=== PATIENT | male | born 1975 | race Caucasian/White ===

== ENCOUNTER 2018-01-02 06:36 | Emergency (ER) | payer BC, OTHER ==
[~2018-01-02] VITALS: Ht 185.4 cm; Wt 190.0 kg
[~2018-01-02 06:36] MED LIST: TRAM-10 PO
[2018-01-02 06:39] VITALS: Ht 185.4 cm; Wt 190.0 kg
--- NOTE | 2018-01-02 07:06 | DIAGNOSTIC IMAGING REPORT ---
L KNEE 1 OR 2 VIEWS ROUTINE CLINICAL HISTORY: left knee pain pain. Trauma. COMPARISON: None. DISCUSSION: The bones and joint spaces appear intact. There is no evidence of fracture, dislocation or bony disease. There is no evidence for soft tissue swelling. Mild degenerative changes of the patellofemoral joint compartment. No significant joint effusion. IMPRESSION: No acute process. The above report was generated using voice recognition software. It may contain grammatical, syntax or spelling errors. Electronically signed by: Jose Riojas M.D. 01/02/2018 7:04 AM Dictated Date/Time: 01/02/2018 7:04 AM
--- NOTE | 2018-01-02 07:16 | EMERGENCY ROOM VISIT NOTE ---
ED Visit Note First contact with patient: 06:43 CHIEF COMPLAINT: Left Knee injury HISTORY OF PRESENT ILLNESS: This 42-year-old male presents to the ER with chief complaint of left knee pain. The patient states that he has had pain in the left knee for the past week and a half. 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 The patient was wearing a knee brace when the injury occurred. Patient is able to bear weight. The patient denies any prior locking or giving out of the knee. The patient denies any prior knee surgery to this knee. He has had knee surgery to his right knee by Dr. Mcneil in the past. REVIEW OF SYSTEMS: 10 system review was performed and was negative unless stated otherwise history of present illness. PMH: The patient is healthy; right knee surgery SOCIAL HISTORY: Patient denies any tobacco use. He states he quit many years ago. The patient does admit to occasional alcohol use. PHYSICAL EXAM: Vital Signs: Were reviewed reviewed Nurse's notes. GENERAL: 42- year-old obese male appears in no acute distress. MENTAL STATUS: Alert, oriented, and cooperative. LEFT: KNEE: No gross bony deformity noted. No erythema or edema noted. The patient is tender to palpation over the posterior aspect of the lateral portion of the knee. The patient has full range of motion of the knee with most pain elicited with full flexion. No ligament instability noted. EMERGENCY DEPARTMENT COURSE: The patient was evaluated. The patient was offered pain medication but declined at this time. X-ray of the left knee was also interpreted by the radiologist and myself. DIAGNOSTICS:L KNEE 1 OR 2 VIEWS ROUTINE CLINICAL HISTORY: left knee pain pain. Trauma. COMPARISON: None. DISCUSSION: The bones and joint spaces appear intact. There is no evidence of fracture, dislocation or bony disease. There is no evidence for soft tissue swelling. Mild degenerative changes of the patellofemoral joint compartment. No significant joint effusion. IMPRESSION: No acute process. The above report was generated using voice recognition software. It may contain grammatical, syntax or spelling errors. Electronically signed by: Jose Riojas M.D. 01/02/2018 7:04 AM The patient was informed of the findings. The patient already has any brace and crutches at home. The patient was discharged home in stable condition. DIAGNOSIS: Left knee pain Elevated BP DISCHARGE INSTRUCTIONS: Follow up with PCP for blood pressure recheck. ibuprofen , 600 mg every 6 hours if needed for pain. Take [place] as needed for more severe pain. Do not drive while taking the [place]. Ice to and elevation to the knee frequently for the next 24 hours. Wear knee brace and use crutches for ambulation until evaluated by orthopedics. Call Dr. Mcneil today for follow-up appointment. Current/Historical Medications Scheduled PRN Hydrocodone/Acetaminophen 5MG/325MG ([place] 5MG/325MG), 1-2 TABLET PO Q6 PRN for Pain Allergies Coded Allergies: No Known Allergies (Unverified , 01/02/18) Vital Signs Date Time Temp Pulse Resp B/P (MAP) Pulse Ox O2 Delivery O2 Flow Rate FiO2 01/02/18 07:33 36.7 77 18 162/112 95 01/02/18 06:39 36.7 66 18 158/94 95 Room Air Departure Information Prescriptions Hydrocodone/Acetaminophen 5MG/325MG ([place] 5MG/325MG) Tab 1-2 TABLET PO Q6 Y for Pain, #20 TAB For Initial Treatment Prov: Daja Riojas PA-C 01/02/18 Referrals Elliott Vanegas M.D. (PCP) Patient Instructions [facility]
[2018-01-02] MEDS ORDERED: HYDR-5688 PO (07:18)
[2018-01-02 07:33] VITALS: BP 162/112; PULSE 77; TEMP 36.7; O2SAT 95
== END 2018-01-02 07:35 | disposition home or self-care (01) ==
LOC: C.EDB 06:37 → C.EDA 07:35
DX: M25.562 Pain in left knee (principal); R03.0 Elevated blood-pressure reading, without diagnosis of hypertension; Z87.891 Personal history of nicotine dependence; Z98.890 Other specified postprocedural states

== ENCOUNTER 2021-07-31 07:42 | Inpatient (IN) ==
[2021-07-31] MEDS ORDERED: BENZONATATE 100 MG CAPSULE PO ONE (08:20)
[2021-07-31] MEDS ORDERED: SODIUM CHLORIDE 0.9% 1000ML 1,000 ML IV ONE (08:20)
[2021-07-31] MEDS ORDERED: dexAMETHasone**PF** 10 MG/ML VIAL IV ONE (08:20)
[2021-07-31] MEDS ORDERED: ACETAMINOPHEN 1000 MG/100 ML IV IV STA (08:31)
--- NOTE | 2021-07-31 08:31 | Emergency Department Note ---
History of Present Illness General Chief complaint: Shortness of Breath/Dyspnea Time Seen by Provider: 07/31/21 07:46 History of Present Illness This 45-year-old male patient presents to the emergency department today for evaluation of monoclonal antibody administration. Patient states 1 week ago, he developed cough, shortness of breath, fever, and chills. He states he tested positive for COVID-19 on 07/27/2021. He was referred to the emergency for monoclonal antibody administration. Patient reports ongoing cough, congestion, sleeping "almost 24 hours a day", and fever. He states he is generally feeling unwell. He denies any numbness, tingling, chest pain. No dizziness, passing out, nausea, or vomiting. Home Medications Medication Instructions Recorded Confirmed Type naproxen sodium 220 mg capsule 440 mg PO Q12H PRN 08/03/18 07/31/21 History (Aleve) pseudoephedrine-ibuprofen 30 2 tab PO QID PRN 07/31/21 07/31/21 History mg-200 mg tablet Allergies Allergy/AdvReac Type Severity Reaction Status Date / Time No Known Allergies Allergy Verified 07/31/21 09:30 Past Med/Surg History Medical History Anxiety Depression Dyslipidemia GERD (gastroesophageal reflux disease) Left sided chest pain Morbid obesity with BMI of 50.0-59.9, adult Prediabetes Surgical History History of tonsillectomy Status post medial meniscus repair Family History Other Heart disease Social History Smoking Status: Never smoker Second Hand Exposure: No; Hx Alcohol Use: Yes Alcohol type: beer Hx Substance Use: No Preferred Language: Irish Communication Ability: Effective Sawyer [place] Slabs Required: No Beliefs That Will Affect Care: None Current Living Situation: Spouse Other Information That Helps Us Care for You: No Feels Safe at Home: Yes Safety Concerns: Feels Safe At This Time Assistive Devices: None Review of Systems A total of 10 systems reviewed and were otherwise negative Physical Exam Vital Signs Vital Signs - 24 hr 07/31/21 08:05 07/31/21 08:21 07/31/21 08:31 Temperature 39.6 C H Temperature Source Oral Pulse Rate 87 82 Pulse Rate from SpO2 Sensor 82 Pulse Rhythm Regular Pulse Strength Normal Respiratory Rate 17 23 Respiratory Effort / Characteristics Non-Labored Spontaneous Spontaneous Respiratory Depth Normal Respiratory Pattern Regular Blood Pressure 135/83 118/73 Blood Pressure Mean 100 88 Blood Pressure Position Lying Pulse Oximetry 83 L 93 Oxygen Delivery Method Room Air Nasal Cannula Oxygen Flow Rate 5 Sepsis Recent Fever Within 48 Hours No Sepsis New/Unexplained Change in Mental Status N/A Sepsis Action Taken by Nursing No Action Required Oxygen Flow Rate - Titration 07/31/21 08:41 07/31/21 08:42 07/31/21 08:58 Temperature Temperature Source Pulse Rate 85 Pulse Rate from SpO2 Sensor 85 Pulse Rhythm Pulse Strength Respiratory Rate 30 H Respiratory Effort / Characteristics Respiratory Depth Respiratory Pattern Blood Pressure 98/66 L Blood Pressure Mean 76 Blood Pressure Position Pulse Oximetry 83 L 92 93 Oxygen Delivery Method Room Air Nasal Cannula Nasal Cannula Oxygen Flow Rate 5 Sepsis Recent Fever Within 48 Hours Sepsis New/Unexplained Change in Mental Status Sepsis Action Taken by Nursing Oxygen Flow Rate - Titration 5 07/31/21 09:00 07/31/21 09:31 07/31/21 10:00 Temperature Temperature Source Pulse Rate 90 79 73 Pulse Rate from SpO2 Sensor 88 79 73 Pulse Rhythm Pulse Strength Respiratory Rate 27 H 25 H 27 H Respiratory Effort / Characteristics Respiratory Depth Respiratory Pattern Blood Pressure 97/63 L 119/71 112/60 Blood Pressure Mean 74 87 77 Blood Pressure Position Pulse Oximetry 94 91 93 Oxygen Delivery Method Nasal Cannula Nasal Cannula Nasal Cannula Oxygen Flow Rate 5 5 5 Sepsis Recent Fever Within 48 Hours Sepsis New/Unexplained Change in Mental Status Sepsis Action Taken by Nursing Oxygen Flow Rate - Titration 07/31/21 10:30 Temperature Temperature Source Pulse Rate 73 Pulse Rate from SpO2 Sensor 73 Pulse Rhythm Pulse Strength Respiratory Rate 24 Respiratory Effort / Characteristics Respiratory Depth Respiratory Pattern Blood Pressure 108/60 Blood Pressure Mean 76 Blood Pressure Position Pulse Oximetry 91 Oxygen Delivery Method Nasal Cannula Oxygen Flow Rate 2 Sepsis Recent Fever Within 48 Hours Sepsis New/Unexplained Change in Mental Status Sepsis Action Taken by Nursing Oxygen Flow Rate - Titration VITALS: Vitals are noted on the nurse's note and reviewed by myself. Patient is hypoxic with an O2 saturation of 83% on room air. He is febrile with a temperature of 39.6 C GENERAL: This is a 45-year-old obese white male, in no acute distress, nondiaphoretic, well-developed well-nourished. SKIN: The skin was without rashes, erythema, edema, or bruising. There is no tenting of the skin. Capillary refill less than 2 seconds. HEAD: Normocephalic atraumatic. EYES: Conjunctivae without injection, sclerae without icterus. NECK: Supple without nuchal rigidity. No lymphadenopathy. Cervical spine is nontender. No JVD. HEART: Regular rate and rhythm without murmurs gallops or rubs. LUNGS: Clear to auscultation bilaterally without wheezes, rales or rhonchi. No retractions or accessory muscle use. MUSCULOSKELETAL: No muscle atrophy, erythema, or edema noted. Full range of motion without joint tenderness in all extremities. No tenderness to palpation. Normal gait. Strength 5/5 throughout. NEURO: Patient was alert and oriented to person place and time. No focal neurological deficits. Course Course The patient was seen and evaluated as above. An order was placed for continuous cardiac monitoring. The monitor shows a normal sinus rhythm at a rate of 76 bpm. IV access obtained, labs drawn. Patient hydrated with IV fluids. He was medi cated with acetaminophen, benzonatate, Decadron. Imaging performed and reviewed by myself and radiologist as noted. Labs reviewed by myself. I discussed the findings with the patient at bedside. Recommended admission. Patient agreeable. I discussed the case with branch lending manager. The [facility] hospitalist was notified. Pt. was seen by hospitalist. Please see their dictation regarding ongoing management and care. Administered Medications Insulin Aspart (Insulin Aspart 100 Units/Ml 3 Ml Pen) 0 units SC ACHS DIGNA Stop: 08/30/21 12:29 Last Admin: 07/31/21 14:48 Dose: Not Given Documented by: [id number] Cosigned by: [id number] Sodium Chloride (Sodium Chloride 0.9% 10ml Flush) 30 ml IV Q24H DIGNA Stop: 08/04/21 12:01 Last Admin: 07/31/21 14:48 Dose: Not Given Documented by: [id number] Discontinued Medications Acetaminophen (Acetaminophen 1000 Mg/100 Ml Iv) 1,000 mg IV NOW STA Stop: 07/31/21 08:32 Last Admin: 07/31/21 09:01 Dose: 1,000 mg Documented by: [id number] Azithromycin (Azithromycin 250 Mg Tab) 500 mg PO NOW ONE Stop: 07/31/21 10:47 Last Admin: 07/31/21 11:31 Dose: 500 mg Documented by: [id number] Benzonatate (Benzonatate 100 Mg Capsule) 200 mg PO NOW ONE Stop: 07/31/21 08:21 Last Admin: 07/31/21 09:01 Dose: 200 mg Documented by: [id number] Dexamethasone Sodium Phosphate (DexamethasonePf 10 Mg/Ml Vial) 6 mg IV NOW ONE Stop: 07/31/21 08:21 Last Admin: 07/31/21 09:01 Dose: 6 mg Documented by: [id number] Furosemide (Furosemide 40 Mg/4 Ml Vial) 20 mg IV NOW STA Stop: 07/31/21 10:46 Last Admin: 07/31/21 11:31 Dose: 20 mg Documented by: [id number] Sodium Chloride (Nss 1000ml) 1,000 mls @ 999 mls/hr IV .Q1H1M ONE Stop: 07/31/21 09:20 Last Infusion: 07/31/21 10:03 Dose: 0 mls/hr Documented by: [id number] Admin: 07/31/21 09:01 Dose: 999 mls/hr Documented by: [id number] Remdesivir 200 mg/ Sodium (Chloride) 250 mls @ 125 mls/hr IV ONE STA; Protocol Stop: 07/31/21 12:44 Last Infusion: 07/31/21 13:36 Dose: 0 mls/hr Documented by: [id number] Admin: 07/31/21 11:31 Dose: 125 mls/hr Documented by: [id number] Pantoprazole Sodium (Pantoprazole 40 Mg Tab) 40 mg PO DAILY ONE Stop: 07/31/21 11:24 Last Admin: 07/31/21 11:34 Dose: 40 mg Documented by: [id number] Medical Decision Making Differential Diagnosis Reactive airway disease, pneumonia, pneumothorax, COPD, CHF, infections, cardiac ischemia, pulmonary embolism, COVID-19, musculoskeletal, gastrointestinal, as well as other pathologies. Medical Records Attestation: I reviewed the patient's medical records. Home Medications Current Medication List: was personally reviewed by me Laboratory Data Attestation: I reviewed the patient's lab results. No leukocytosis, anemia, thrombocytopenia. Renal, hepatic function, and electrolytes without significant abnormality. Mild hyponatremia with a sodium of 128. Troponin negative. Procalcitonin 0.07. COVID-19 testing positive. Result diagrams: 07/31/21 08:47 07/31/21 08:47 Lab Results 07/31/21 07/31/21 07/31/21 Range/Units 08:47 08:47 08:47 WBC 5.57 (4.8-10.8) K/uL RBC 5.48 (4.7-6.1) M/uL Hgb 15.8 (14.0-18.0) g/dL Hct 46.0 (42-52) % MCV 83.9 (80-100) fL MCH 28.8 (25-34) pg MCHC 34.3 (32-36) g/dL RDW Std Deviation 43.1 (36.4-46.3) fL RDW Coeff of Roxana 13.9 (11.5-14.5) % Plt Count 160 (130-400) K/uL MPV 10.7 H (7.4-10.4) fL Immature Gran % (Auto) 0.0 % Neut % (Auto) 83.5 % Lymph % (Auto) 12.2 % Cass % (Auto) 4.3 % Eos % (Auto) 0.0 % Baso % (Auto) 0.0 % Neut # (Auto) 4.65 (1.4-6.5) K/uL Lymph # (Auto) 0.68 L (1.2-3.4) K/uL Cass # (Auto) 0.24 (0.11-0.59) K/uL Eos # (Auto) 0.00 (0-0.5) K/uL Baso # (Auto) 0.00 (0-0.2) K/uL Immature Gran # (Auto) 0.00 (0.00-0.02) K/uL ESR (0-15) mm/hr PT (9.0-12.0) Seconds INR (0.9-1.1) Fibrinogen (184-400) mg/dl Sodium 128 L (136-145) mmol/L Potassium 4.1 (3.5-5.1) mmol/L Chloride 92 L (98-107) mmol/L Carbon Dioxide 27 (21-32) mmol/L Anion Gap 9.0 (3-11) BUN 18 (7-18) mg/dl Creatinine 1.06 (0.6-1.4) mg/dl Est Cr Clr Drug Dosing 137.4 ml/min Est GFR ( Amer) 97.1 ml/min Est GFR (Non-Af Amer) 83.8 ml/min BUN/Creatinine Ratio 17.1 (10-20) Glucose 119 H (70-99) mg/dl Lactate (0.4-2.0) mmol/L Calcium 8.7 (8.5-10.1) mg/dl Magnesium 2.0 (1.8-2.4) mg/dl Ferritin (8-388) ng/ml Total Bilirubin 0.9 (0.2-1) mg/dl AST 41 H (15-37) U/L ALT 37 (12-78) U/L Alkaline Phosphatase 67 (45-117) U/L Lactate Dehydrogenase (87-241) U/L Troponin I < 0.015 (0-0.045) ng/ml C-Reactive Protein (0-0.29) mg/dl NT-Pro-B Natriuret Pep (0-450) pg/ml Total Protein 7.1 (6.4-8.2) gm/dl Albumin 2.7 L (3.4-5.0) gm/dl Globulin 4.4 H (2.5-4.0) gm/dl Albumin/Globulin Ratio 0.6 L (0.9-2) Procalcitonin 0.07 (0-0.5) ng/ml COVID-19 Eval Order SARS-CoV-2 (PCR) (Negative) 07/31/21 07/31/21 07/31/21 Range/Units 08:47 08:47 08:47 WBC (4.8-10.8) K/uL RBC (4.7-6.1) M/uL Hgb (14.0-18.0) g/dL Hct (42-52) % MCV (80-100) fL MCH (25-34) pg MCHC (32-36) g/dL RDW Std Deviation (36.4-46.3) fL RDW Coeff of Roxana (11.5-14.5) % Plt Count (130-400) K/uL MPV (7.4-10.4) fL Immature Gran % (Auto) % Neut % (Auto) % Lymph % (Auto) % Cass % (Auto) % Eos % (Auto) % Baso % (Auto) % Neut # (Auto) (1.4-6.5) K/uL Lymph # (Auto) (1.2-3.4) K/uL Cass # (Auto) (0.11-0.59) K/uL Eos # (Auto) (0-0.5) K/uL Baso # (Auto) (0-0.2) K/uL Immature Gran # (Auto) (0.00-0.02) K/uL ESR (0-15) mm/hr PT 10.7 (9.0-12.0) Seconds INR 1.1 (0.9-1.1) Fibrinogen (184-400) mg/dl Sodium (136-145) mmol/L Potassium (3.5-5.1) mmol/L Chloride (98-107) mmol/L Carbon Dioxide (21-32) mmol/L Anion Gap (3-11) BUN (7-18) mg/dl Creatinine (0.6-1.4) mg/dl Est Cr Clr Drug Dosing ml/min Est GFR ( Amer) ml/min Est GFR (Non-Af Amer) ml/min BUN/Creatinine Ratio (10-20) Glucose (70-99) mg/dl Lactate 1.7 (0.4-2.0) mmol/L Calcium (8.5-10.1) mg/dl Magnesium (1.8-2.4) mg/dl Ferritin (8-388) ng/ml Total Bilirubin (0.2-1) mg/dl AST (15-37) U/L ALT (12-78) U/L Alkaline Phosphatase (45-117) U/L Lactate Dehydrogenase (87-241) U/L Troponin I (0-0.045) ng/ml C-Reactive Protein (0-0.29) mg/dl NT-Pro-B Natriuret Pep (0-450) pg/ml Total Protein (6.4-8.2) gm/dl Albumin (3.4-5.0) gm/dl Globulin (2.5-4.0) gm/dl Albumin/Globulin Ratio (0.9-2) Procalcitonin (0-0.5) ng/ml COVID-19 Eval Order Covid19 at [facility] SARS-CoV-2 (PCR) (Negative) 07/31/21 07/31/21 07/31/21 Range/Units 08:47 08:47 08:47 WBC (4.8-10.8) K/uL RBC (4.7-6.1) M/uL Hgb (14.0-18.0) g/dL Hct (42-52) % MCV (80-100) fL MCH (25-34) pg MCHC (32-36) g/dL RDW Std Deviation (36.4-46.3) fL RDW Coeff of Roxana (11.5-14.5) % Plt Count (130-400) K/uL MPV (7.4-10.4) fL Immature Gran % (Auto) % Neut % (Auto) % Lymph % (Auto) % Cass % (Auto) % Eos % (Auto) % Baso % (Auto) % Neut # (Auto) (1.4-6.5) K/uL Lymph # (Auto) (1.2-3.4) K/uL Cass # (Auto) (0.11-0.59) K/uL Eos # (Auto) (0-0.5) K/uL Baso # (Auto) (0-0.2) K/uL Immature Gran # (Auto) (0.00-0.02) K/uL ESR 53 H (0-15) mm/hr PT (9.0-12.0) Seconds INR (0.9-1.1) Fibrinogen 459 H (184-400) mg/dl Sodium (136-145) mmol/L Potassium (3.5-5.1) mmol/L Chloride (98-107) mmol/L Carbon Dioxide (21-32) mmol/L Anion Gap (3-11) BUN (7-18) mg/dl Creatinine (0.6-1.4) mg/dl Est Cr Clr Drug Dosing ml/min Est GFR ( Amer) ml/min Est GFR (Non-Af Amer) ml/min BUN/Creatinine Ratio (10-20) Glucose (70-99) mg/dl Lactate (0.4-2.0) mmol/L Calcium (8.5-10.1) mg/dl Magnesium (1.8-2.4) mg/dl Ferritin (8-388) ng/ml Total Bilirubin (0.2-1) mg/dl AST (15-37) U/L ALT (12-78) U/L Alkaline Phosphatase (45-117) U/L Lactate Dehydrogenase (87-241) U/L Troponin I (0-0.045) ng/ml C-Reactive Protein (0-0.29) mg/dl NT-Pro-B Natriuret Pep (0-450) pg/ml Total Protein (6.4-8.2) gm/dl Albumin (3.4-5.0) gm/dl Globulin (2.5-4.0) gm/dl Albumin/Globulin Ratio (0.9-2) Procalcitonin (0-0.5) ng/ml COVID-19 Eval Order SARS-CoV-2 (PCR) POSITIVE A* (Negative) 07/31/21 07/31/21 Range/Units 08:47 08:47 WBC (4.8-10.8) K/uL RBC (4.7-6.1) M/uL Hgb (14.0-18.0) g/dL Hct (42-52) % MCV (80-100) fL MCH (25-34) pg MCHC (32-36) g/dL RDW Std Deviation (36.4-46.3) fL RDW Coeff of Roxana (11.5-14.5) % Plt Count (130-400) K/uL MPV (7.4-10.4) fL Immature Gran % (Auto) % Neut % (Auto) % Lymph % (Auto) % Cass % (Auto) % Eos % (Auto) % Baso % (Auto) % Neut # (Auto) (1.4-6.5) K/uL Lymph # (Auto) (1.2-3.4) K/uL Cass # (Auto) (0.11-0.59) K/uL Eos # (Auto) (0-0.5) K/uL Baso # (Auto) (0-0.2) K/uL Immature Gran # (Auto) (0.00-0.02) K/uL ESR (0-15) mm/hr PT (9.0-12.0) Seconds INR (0.9-1.1) Fibrinogen (184-400) mg/dl Sodium (136-145) mmol/L Potassium (3.5-5.1) mmol/L Chloride (98-107) mmol/L Carbon Dioxide (21-32) mmol/L Anion Gap (3-11) BUN (7-18) mg/dl Creatinine (0.6-1.4) mg/dl Est Cr Clr Drug Dosing ml/min Est GFR ( Amer) ml/min Est GFR (Non-Af Amer) ml/min BUN/Creatinine Ratio (10-20) Glucose (70-99) mg/dl Lactate (0.4-2.0) mmol/L Calcium (8.5-10.1) mg/dl Magnesium (1.8-2.4) mg/dl Ferritin 907.1 H (8-388) ng/ml Total Bilirubin (0.2-1) mg/dl AST (15-37) U/L ALT (12-78) U/L Alkaline Phosphatase (45-117) U/L Lactate Dehydrogenase 414 H (87-241) U/L Troponin I (0-0.045) ng/ml C-Reactive Protein 15.30 H (0-0.29) mg/dl NT-Pro-B Natriuret Pep 40 (0-450) pg/ml Total Protein (6.4-8.2) gm/dl Albumin (3.4-5.0) gm/dl Globulin (2.5-4.0) gm/dl Albumin/Globulin Ratio (0.9-2) Procalcitonin (0-0.5) ng/ml COVID-19 Eval Order SARS-CoV-2 (PCR) (Negative) Imaging Data Radiologist's Impression: Chest X-Ray 07/31/21 08:21 XR chest 1V portable HISTORY: cough, hypoxia, covid-19 COMPARISON: Chest 08/13/2018. FINDINGS: No pneumothorax. No pleural effusions. The cardiac silhouette remains mildly enlarged. There are low lung volumes. There are extensive patchy bilateral airspace opacities consistent with a multifocal viral pneumonia. IMPRESSION: Extensive patchy bilateral airspace opacities consistent with a multifocal viral pneumonia. ACT 112: Negative or not required by law. Electronically signed by: Jose Mendoza M.D. 07/31/2021 9:43 AM ECG Data Attestation: I personally reviewed and interpreted this ECG as follows: Indication: + SOB/dyspnea Rate (beats per minute): 85 Rhythm: + normal sinus ECG ST segments: no ST depression, no ST elevation or no T-wave inversions Comparison ECG Date: from (08/04/2018) Change: the following changes noted (PVC no longer present) Blood Pressure Blood Pressure Findings: Normal blood pressure MDM Narrative This 45-year-old male patient presents to the emergency department today for ad ministration of monoclonal antibodies. The patient was diagnosed with COVID-19 on 07/27/2021 and has had symptoms for a week. Unfortunately, upon arrival to the ED, he was noted to be hypoxic with an O2 saturation of 83% on room air. Discussed with the patient that he would need to be admitted and does not qualify for monoclonal antibody administration at this time. Patient was agreeable. He was started on oxygen while in the emergency department. He was medicated with Decadron, IV fluids, acetaminophen, benzonatate. His symptoms somewhat improved. He will be admitted to the [facility] hospitalist service for ongoing evaluation. Please see hospitalist dictation regarding ongoing m anagement and care of this patient The chart was completed utilizing [employer] Speech voice recognition software. Grammatical errors, random word insertions, pronoun errors, and incomplete sentences are an occasional consequence of this system due to software limitations, ambient noise, and hardware issues. Any formal questions or concerns about the content, text, or information contained within the body of this dictation should be directly addressed to the provider for clarification. Impression & Plan COVID-19, Hypoxia Discharge Plan Visit Data Chief Complaint: Shortness of Breath/Dyspnea ED Provider: Balbir Spears ED Midlevel Provider: Gwendolyn Sheikh Discharge Problem: COVID-19, Hypoxia Patient Disposition: Admitted As Inpatient Discharge Instructions Interventions: ED Discharge Assessment Last Done: 07/31/21 11:00
[2021-07-31 09:06] LABS: Hemoglobin 15.8 g/dL (14.0-18.0); Lymphocytes # (auto) 0.68 K/uL (1.2-3.4); Lymphocytes % (auto) 12.2 %; Mean Corpuscular Hemoglobin 28.8 pg (25-34); Mean Corpuscular Hgb Conc 34.3 g/dL (32-36); Mean Corpuscular Volume 83.9 fL (80-100); Mean Platelet Volume 10.7 fL (7.4-10.4); Monocytes # (auto) 0.24 K/uL (0.11-0.59); Monocytes % (auto) 4.3 %; Neutrophils # (auto) 4.65 K/uL (1.4-6.5); Neutrophils % (auto) 83.5 %; Platelet Count 160 K/uL (130-400); RDW Coefficient of Variation 13.9 % (11.5-14.5); RDW Standard Deviation 43.1 fL (36.4-46.3); Red Blood Count 5.48 M/uL (4.7-6.1); White Blood Count 5.57 K/uL (4.8-10.8)
[2021-07-31 09:15] LABS: INR 1.1 (0.9-1.1); Prothrombin Time 10.7 Seconds (9.0-12.0)
[2021-07-31 09:30] LABS: Alanine Aminotransferase 37 U/L (12-78); Albumin Level 2.7 gm/dl (3.4-5.0); Aspartate Aminotransferase 41 U/L (15-37); BUN Creatinine Ratio 17.1 (10-20); Blood Urea Nitrogen 18 mg/dl (7-18); Calcium 8.7 mg/dl (8.5-10.1); Carbon Dioxide 27 mmol/L (21-32); Chloride 92 mmol/L (98-107); Creatinine Clr Calc Pharmacy 137.4 ml/min; Est GFR (African American) 97.1 ml/min; Est GFR (Non-African American) 83.8 ml/min; Glucose 119 mg/dl (70-99); Potassium 4.1 mmol/L (3.5-5.1); Sodium 128 mmol/L (136-145)
[2021-07-31 09:34] LABS: Albumin Globulin Ratio 0.6 (0.9-2); Alkaline Phosphatase 67 U/L (45-117); Bilirubin,Total 0.9 mg/dl (0.2-1); Globulin 4.4 gm/dl (2.5-4.0); Total Protein 7.1 gm/dl (6.4-8.2); Troponin I < 0.015 ng/ml (0-0.045)
--- NOTE | 2021-07-31 09:44 | XRay Report ---
XR chest 1V portable HISTORY: cough, hypoxia, covid-19 COMPARISON: Chest 08/13/2018. FINDINGS: No pneumothorax. No pleural effusions. The cardiac silhouette remains mildly enlarged. Ther e are low lung volumes. There are extensive patchy bilateral airspace opacities consistent with a mul tifocal viral pneumonia. IMPRESSION: Extensive patchy bilateral airspace opacities consistent with a multifocal viral pneumonia. ACT 112: Negative or not required by law. Electronically signed by: Jose Mendoza M.D. 07/31/2021 9:43 AM
[2021-07-31] MEDS ORDERED: FUROSEMIDE 40 MG/4 ML VIAL IV STA (10:45)
[2021-07-31] MEDS ORDERED: REMDESIVIR 200 MG in SODIUM CHLORIDE 0.9% 210 ML IV STA (10:45)
[2021-07-31] MEDS ORDERED: AZITHROMYCIN 250 MG TAB PO ONE (10:46)
--- NOTE | 2021-07-31 10:52 | History & Physical Report ---
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 - Self rotation and proning therapy- discussed with patient - place juárez catheter with hypoxia and dyspnea with activity - 20 mg Lasix x1 now- diurese as needed to decrease pulmonary edema (2) Dyslipidemia: Plan: Not on statin as outpatient- last reviewed 2018 - follow up with outpatient - Normal stress ECHO in 2018 (3) Morbid obesity with BMI of 50.0-59.9, adult: Plan: Weight loss recommended to decrease care home CVD effects (4) Impaired fasting glucose: Plan: Imparied fasting glucose without diagnosis of DM - Will add on glucose checks AC/HS while on high dose steroids - Aspart sliding scale for now CF: 20 goal <180, will add on carb ratio if needed or basal insulin as well (5) Hypoxia: Plan: Hypoxia with respiratory failure- 5LNC SPO2 90-93%, RR 26-28 - secondary to COVID 19 - Supportive efforts as above (6) Hyponatremia: Plan: Likely due to decreased oral intake and solute intake - received 1L NS - follow with diuresis and oral intake (7) DVT prophylaxis: Plan: Lovenox 40mg BID subq - can d on clinical course if needed to 0.5mg/kg BID CODE: FULL History of Present Illness Primary Care Provider: Elliott Vanegas MD 45 YOM with past medical history of: HLD, SHIRAZ, HLD, and glucose intolerance: Patient is obese. He comes to the EMD today for complaints of increased fatigue, dyspnea, and hypoxia. The patient symptoms started last Friday on July 24, was tested for COVID on FridayJuly 27 and was positive. 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 He is not vaccinated. He is and his is asymptomatic/negative and he has one son who is asymptomatic not tested at this time. The patient was hypoxic on arrival at 83% with RR high 20s. He continues to have fevers, chills, body aches, and fatigue. He still remains tachypneic on 5L NC with Spo2 93%, will transition to HFNC. He has lost his sense of smell, has decreased sense of taste. Has had decreased oral intake as well. We have discussed treatment options to include remdesivir, Decadron, oxygen titration, and self proning. I have ordered inflammatory markers and fibrinogen level. Will increase Decadron dosing to 8mg daily, blood glucose checks and sliding scale insulin if needed. Continue supportive care and tracking of biomarkers and oxygen demand. Patient is not Vacinated and his COVID test on admission is POSITIVE. Allergies Allergy/AdvReac Type Severity Reaction Status Date / Time No Known Allergies Allergy Verified 07/31/21 09:30 Home Medications Medication Instructions Recorded Confirmed Type naproxen sodium 220 mg capsule 440 mg PO Q12H PRN 08/03/18 07/31/21 History (Aleve) pseudoephedrine-ibuprofen 30 2 tab PO QID PRN 07/31/21 07/31/21 History mg-200 mg tablet Past Med/Surg History Medical History Anxiety Depression Dyslipidemia GERD (gastroesophageal reflux disease) Left sided chest pain Morbid obesity with BMI of 50.0-59.9, adult Prediabetes Surgical History History of tonsillectomy Status post medial meniscus repair Family History Other Heart disease Social History Smoking Status: Never smoker Second Hand Exposure: No; Hx Alcohol Use: Yes Alcohol type: beer Hx Substance Use: No Preferred Language: Chinese Communication Ability: Effective 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 Cooler Installer Required: No Beliefs That Will Affect Care: None Current Living Situation: Spouse Other Information That Helps Us Care for You: No Feels Safe at Home: Yes Safety Concerns: Feels Safe At This Time Assistive Devices: Oxygen - Continuous Review of Systems Review of Systems: REVIEW OF SYSTEMS: Constitutional: (+) fever, sweats or chills Eyes: No diplopia, no worsening or blurred vision ENT: normal hearing, no trouble swallowing Respiratory: (+) cough, sputum, dyspnea at rest or on exertion Cardiovascular: NO chest pain, tightness or palpitations Abdomen: (+) loss of appetite, No pain, nausea, vomiting, diarrhea or constipation Musculoskeletal: No joint pain, calf pain, swelling Neurologic: No weakness, numbness/tingling, or balance problems Psychiatric: No anxiety or depression Skin: No rash or itch Physical Exam Physical Exam: PHYSICAL EXAM: General: awake, alert, no apparent distress Head: Normocephalic, atraumatic ENT: PERRL, EOMI, no pharyngeal exudate, mucous membranes moist Neuro: AAO x 3, speech clear and appropriate, strength intact bilaterally 5/5, sensation intact and equal all extremities and dermatomes, no pronator drift Chest: equal rise and fall of the chest, tachypnea, decreased air movement throughout on 5LNC Cardiac: Regular rate and rhythm, telemetry reviewed-NSR, skin warm dry, cap refill <3 seconds, peripheral pulses +2 no JVD, no murmur, no edema GI: NABS x 4 quadrants, softly obese, nontender to palpation, no rebound, guarding or tenderness : Spontaneously voiding, no pain, no CVA tenderness, Extremities: Normal inspection, no peripheral edema or erythema, calfs nontender to palpation Psych: Normal mood and affect Skin: no rash or erythema Results & Data Results & Data ([facility]) Vital Signs (Past 12 Hours) Vital Signs Temp Pulse Resp BP Pulse Ox 07/31/21 10:00 73 27 H 112/60 93 07/31/21 09:31 79 25 H 119/71 91 07/31/21 09:00 90 27 H 97/63 L 94 07/31/21 08:58 85 30 H 98/66 L 93 07/31/21 08:42 92 07/31/21 08:41 83 L 07/31/21 08:31 82 23 118/73 93 07/31/21 08:05 39.6 C H 87 17 135/83 83 L Laboratory Results Abnormal lab results 07/31/21 07/31/21 07/31/21 Range/Units 08:47 08:47 08:47 MPV 10.7 H (7.4-10.4) fL Lymph # (Auto) 0.68 L (1.2-3.4) K/uL ESR (0-15) mm/hr Fibrinogen (184-400) mg/dl Sodium 128 L (136-145) mmol/L Chloride 92 L (98-107) mmol/L Glucose 119 H (70-99) mg/dl AST 41 H (15-37) U/L Albumin 2.7 L (3.4-5.0) gm/dl Globulin 4.4 H (2.5-4.0) gm/dl Albumin/Globulin Ratio 0.6 L (0.9-2) SARS-CoV-2 (PCR) POSITIVE A* (Negative) 07/31/21 07/31/21 Range/Units 08:47 08:47 MPV (7.4-10.4) fL Lymph # (Auto) (1.2-3.4) K/uL ESR 53 H (0-15) mm/hr Fibrinogen 459 H (184-400) mg/dl Sodium (136-145) mmol/L Chloride (98-107) mmol/L Glucose (70-99) mg/dl AST (15-37) U/L Albumin (3.4-5.0) gm/dl Globulin (2.5-4.0) gm/dl Albumin/Globulin Ratio (0.9-2) SARS-CoV-2 (PCR) (Negative) Diagnostic Findings Chest X-Ray 07/31/21 08:21 XR chest 1V portable HISTORY: cough, hypoxia, covid-19 COMPARISON: Chest 08/13/2018. FINDINGS: No pneumothorax. No pleural effusions. The cardiac silhouette remains mildly enlarged. There are low lung volumes. There are extensive patchy bilateral airspace opacities consistent with a multifocal viral pneumonia. IMPRESSION: Extensive patchy bilateral airspace opacities consistent with a multifocal viral pneumonia. ACT 112: Negative or not required by law. Electronically signed by: Jose Mendoza M.D. 07/31/2021 9:43 AM Medications Administered Discontinued Medications Acetaminophen (Acetaminophen 1000 Mg/100 Ml Iv) 1,000 mg IV NOW STA Stop: 07/31/21 08:32 Last Admin: 07/31/21 09:01 Dose: 1,000 mg Documented by: [id number] Benzonatate (Benzonatate 100 Mg Capsule) 200 mg PO NOW ONE Stop: 07/31/21 08:21 Last Admin: 07/31/21 09:01 Dose: 200 mg Documented by: [id number] Dexamethasone Sodium Phosphate (DexamethasonePf 10 Mg/Ml Vial) 6 mg IV NOW ONE Stop: 07/31/21 08:21 Last Admin: 07/31/21 09:01 Dose: 6 mg Documented by: [id number] Sodium Chloride (Nss 1000ml) 1,000 mls @ 999 mls/hr IV .Q1H1M ONE Stop: 07/31/21 09:20 Last Infusion: 07/31/21 10:03 Dose: 0 mls/hr Documented by: [id number] Admin: 07/31/21 09:01 Dose: 999 mls/hr Documented by: [id number] ECG Additional Comments: Normal sinus rhythm Possible Left atrial enlargement Inferior infarct , age undetermined Abnormal ECG When compared with ECG of 04-AUG-2018 08:20, Premature ventricular complexes are no longer Present Code Status & VTE Plan Code Status CODE: FULL VTE: SCDs, Lovenox 40mg BID subq VTE Prophylaxis Plan VTE Prophylaxis will be ordered: Yes Supervising Physician Co-Signing Physician Notes Attending addendum: I have physically seen this patient, have supervised the LISA's activities, and agree with the H&P unless as otherwise noted. Assessment and Plan: COVID-19 pneumonia with hypoxia- Decadron 8 mg IV daily Remdesivir IV per protocol Guaifenesin extended release 600 mg p.o. twice daily Lovenox 40 mg subcu twice daily Albuterol HFA 2 puffs 4 times daily and every 2 hours as needed DuoNebs every 2 hours as needed Azithromycin p.o. Target pulse ox 94% with oxygen Furosemide 20 mg IV x1 now and follow output Dyslipidemia- Check a fasting lipid panel Remaining orders and notations as noted PG Care Time/CCT Total # of Minutes Spent Total Time Spent with Patient: Total time spent is greater than 50% in coordination of care (as documented) at patient's floor/unit and/or counseling patient: Coding Level of Care Code 61242 Initial Inpt Care Lvl 3 Diagnoses COVID-19 U07.1 Dyslipidemia E78.5 Morbid obesity with BMI of 50.0-59.9, adult E66.01; Z68.43 Impaired fasting glucose R73.01 Hypoxia R09.02 DVT prophylaxis Z29.9 Hyponatremia E87.1
[2021-07-31 10:59] LABS: Fibrinogen 459 mg/dl (184-400)
[2021-07-31 11:06] LABS: C Reactive Protein 15.3 mg/dl (0-0.29); Ferritin 907.1 ng/ml (8-388)
[2021-07-31] MEDS ORDERED: PANTOprazole 40 MG TAB PO ONE (11:23)
[2021-07-31] MEDS ORDERED: GLUCAGON FOR INJ 1 MG VIAL SQ PRN (12:00)
[2021-07-31] MEDS ORDERED: GLUCOSE 40% GEL 15 GM TUBE PO PRN (12:00)
[2021-07-31] MEDS ORDERED: GLUCOSE 10 TABS/TUBE PO PRN (12:00)
[2021-07-31] MEDS ORDERED: ONDANSETRON INJ 2 MG/ML 2 ML VIAL IV PRN (12:00)
[2021-07-31] MEDS ORDERED: DEXTROSE 50% 50 ML SYRINGE IV PRN (12:00)
[2021-07-31] MEDS ORDERED: ALBUTEROL HFA 8 GM INHALER INH PRN (12:00)
[2021-07-31] MEDS ORDERED: ACETAMINOPHEN 325 MG TAB PO PRN (12:00)
[2021-07-31] MEDS ORDERED: CARBOHYDRATES FOR HYPOGLYCEMIA PO PRN (12:00)
[2021-07-31] MEDS: SODIUM CHLORIDE 0.9% 10ML FLUSH IV SCH (14:48)
[2021-07-31] MEDS: INSULIN ASPART 100 UNITS/ML 3 ML PEN SC SCH ×3 (14:48→21:46)
--- NOTE | 2021-07-31 16:11 | Electrocardiogram Report ---
Test Reason : Blood Pressure : / mmHG Vent. Rate : 085 BPM Atrial Rate : 085 BPM P-R Int : 156 ms QRS Dur : 098 ms QT Int : 364 ms P-R-T Axes : 027 041 056 degrees QTc Int : 433 ms Normal sinus rhythm Possible Left atrial enlargement Inferior infarct , age undetermined Abnormal ECG When compared with ECG of 04-AUG-2018 08:20, Premature ventricular complexes are no longer Present Confirmed by Jono Narayan ([id number]) on 07/31/2021 4:11:10 PM Referred By: REFERRED SELF Confirmed By:Jayme Narayan
[2021-07-31] MEDS: ENOXAPARIN INJ 40 MG/0.4 ML SYR SQ SCH ×2 (18:15→21:47)
[2021-08-01 00:41] LABS: Appearance Urine Clear (Clear); Bacteria Urine Automated Negative (Negative); Bilirubin Urine Negative (Negative); Blood Urine Trace (Negative); Color Urine Dark Yellow; Glucose Urine UA Negative (Negative); Ketones Urine Negative (Negative); Leukocyte Esterase Urine Negative (Negative); Nitrite Urine Negative (Negative); Protein Urine 2+ (Negative); RBC Urine Automated 0-4 /hpf (0-4); Specific Gravity Urine 1.019 (1.000-1.030); Urobilinogen Urine Positive (Negative)
[2021-08-01 07:23] LABS: Basophils # (auto) 0.01 K/uL (0-0.2); Basophils % (auto) 0.2 %; Hematocrit (blood only) 46.8 % (42-52); Immature Granulocytes # (auto) 0.01 K/uL (0.00-0.02); Immature Granulocytes % (auto) 0.2 %; Lymphocytes # (auto) 0.76 K/uL (1.2-3.4); Lymphocytes % (auto) 13.5 %; Mean Corpuscular Hemoglobin 28.8 pg (25-34); Mean Corpuscular Hgb Conc 34.2 g/dL (32-36); Mean Corpuscular Volume 84.3 fL (80-100); Monocytes # (auto) 0.43 K/uL (0.11-0.59); Monocytes % (auto) 7.7 %; Neutrophils # (auto) 4.41 K/uL (1.4-6.5); Neutrophils % (auto) 78.4 %; Platelet Count 163 K/uL (130-400); RDW Coefficient of Variation 13.7 % (11.5-14.5); RDW Standard Deviation 42.2 fL (36.4-46.3); Red Blood Count 5.55 M/uL (4.7-6.1); White Blood Count 5.62 K/uL (4.8-10.8)
[2021-08-01 07:51] LABS: C Reactive Protein 13.4 mg/dl (0-0.29); Creatinine Clr Calc Pharmacy 181.8 ml/min; Est GFR (African American) 116.7 ml/min; Est GFR (Non-African American) 100.7 ml/min; Magnesium 2.1 mg/dl (1.8-2.4)
[2021-08-01] MEDS: ENOXAPARIN INJ 40 MG/0.4 ML SYR SQ SCH ×2 (08:00→20:37)
[2021-08-01] MEDS: INSULIN ASPART 100 UNITS/ML 3 ML PEN SC SCH ×4 (08:59→21:37)
[2021-08-01] MEDS ORDERED: FUROSEMIDE 20 MG in SYRINGE 0 ML IV ONE (09:00)
[2021-08-01] MEDS ORDERED: dexAMETHasone 8 MG in SYRINGE 0 ML IV SCH (09:00)
[2021-08-01] MEDS: AZITHROMYCIN 250 MG TAB PO SCH (09:57)
--- NOTE | 2021-08-01 10:47 | Hospitalist Progress Note ---
Date of Service August 01, 2021 Assessment & Plan (1) Pneumonia due to COVID-19 virus: Plan: SEVERE. CXR with diffuse infiltrates. Escalating O2 requirements c/w severe pneumonia/development of ARDS. Day #2 of IV dexamethasone 6mg. Day #2 of Remdesivir. I consulted Dr Garza from pulmonary - patient indeed is baricitinib candidate. This was initiated -- 4mg po daily x 14 days. By the end of the day patient was requiring high settings on HFNC. I asked the charge nurse for transfer to our COVID unit in the event [facility] Cont azithromycin - day #2 of 5. Proning discussed in great detail. He will attempt. Cont pulm toilet - incentive, flutter. Keep i/O balance negative - cont lasix (gave additional IV lasix this am). Reassess for additional lasix tomorrow. (2) Acute hypoxemic respiratory failure: Plan: 2nd #1 as above (3) Hyponatremia: Plan: 2nd poor oral intake, diuresis, etc. BMP am (4) Prediabetes: Plan: a1c 5.8% c/w such with IV steroids anticipate BSGs to be high novolog SSI low threshold for basal insulin (5) BPH (benign prostatic hyperplasia): Plan: no issues at this time (6) Dyslipidemia: (7) Morbid obesity with BMI of 50.0-59.9, adult: Plan: BMI 57 (8) DVT prophylaxis: Plan: lovenox 40mg BID consider larger dose given severely elevated inflammatory markers - high risk of VTE given morbid obesity, poor mobility, COVID illness Plan: extensively update pt's by phone this evening questions answered Admission and Anticipated Discharge Date Admission Date: July 31, 2021 Subjective patient resting comfortably during the visit he was laying on side w/o distress or orthopnea reports dry cough, and HUBBARD no chest pain has considerable fatigue & poor appetite no vomiting or nausea tele overnight wnl we had lengthy discussion during bedside rounds about his escalating O2 requirements in <24 hours told him that this is concerning and is c/w worsening COVID19 pneumonia we talked about immune-based treatment and he is agreeable to all measures to improve denies any prior h/o lung disease, asthma, etc Review of Systems Review of Systems: gen - no fevers or chills since time of ER presentation ENT - loss of taste/smell GI - no abd pain - no issues voiding Physical Exam Physical Exam: gen - morbidly obese, no increased work of breathing, a/o x 3 mouth - MM dry neck - no JVD heart - RRR, s1 s2 lungs - diffuse rales b/l, no wheeze, mild "quiet" tachypnea but no retractions abd - soft NT ND BS+ ext - no edema skin - no rash psych - a/o x 3 Results & Data Results & Data ([facility]) Vital Signs (Past 12 Hours) Vital Signs Temp Pulse Resp BP Pulse Ox 08/01/21 07:41 77 20 94 08/01/21 06:45 90 08/01/21 06:12 91 08/01/21 05:04 36.6 C 71 16 119/61 93 08/01/21 03:00 90 08/01/21 00:19 93 07/31/21 23:24 36.9 C 73 16 153/70 H 93 Laboratory Results Laboratory Results - last 24 hr 07/31/21 07/31/21 07/31/21 08:47 08:47 08:47 WBC RBC Hgb Hct MCV MCH MCHC RDW Std Deviation RDW Coeff of Roxana Plt Count MPV Immature Gran % (Auto) Neut % (Auto) Lymph % (Auto) Mathews % (Auto) Eos % (Auto) Baso % (Auto) Neut # (Auto) Lymph # (Auto) Mathews # (Auto) Eos # (Auto) Baso # (Auto) Immature Gran # (Auto) ESR 53 H Fibrinogen 459 H Sodium Potassium Chloride Carbon Dioxide Anion Gap BUN Creatinine Est Cr Clr Drug Dosing Est GFR ( Amer) Est GFR (Non-Af Amer) BUN/Creatinine Ratio Glucose POC Glucose Calcium Magnesium Ferritin 907.1 H Lactate Dehydrogenase C-Reactive Protein 15.30 H NT-Pro-B Natriuret Pep 40 Urine Color Urine Appearance Urine pH Ur Specific [place] Urine Protein Urine Glucose (UA) Urine Ketones Urine Blood Urine Nitrite Urine Bilirubin Urine Urobilinogen Ur Leukocyte Esterase Urine WBC (Auto) Urine RBC (Auto) U Hyaline Cast (Auto) U Epithel Cells (Auto) Urine Bacteria (Auto) 07/31/21 07/31/21 07/31/21 08:47 17:02 20:24 WBC RBC Hgb Hct MCV MCH MCHC RDW Std Deviation RDW Coeff of Roxana Plt Count MPV Immature Gran % (Auto) Neut % (Auto) Lymph % (Auto) Mathews % (Auto) Eos % (Auto) Baso % (Auto) Neut # (Auto) Lymph # (Auto) Mathews # (Auto) Eos # (Auto) Baso # (Auto) Immature Gran # (Auto) ESR Fibrinogen Sodium Potassium Chloride Carbon Dioxide Anion Gap BUN Creatinine Est Cr Clr Drug Dosing Est GFR ( Amer) Est GFR (Non-Af Amer) BUN/Creatinine Ratio Glucose POC Glucose 187 H 135 H Calcium Magnesium Ferritin Lactate Dehydrogenase 414 H C-Reactive Protein NT-Pro-B Natriuret Pep Urine Color Urine Appearance Urine pH Ur Specific [place] Urine Protein Urine Glucose (UA) Urine Ketones Urine Blood Urine Nitrite Urine Bilirubin Urine Urobilinogen Ur Leukocyte Esterase Urine WBC (Auto) Urine RBC (Auto) U Hyaline Cast (Auto) U Epithel Cells (Auto) Urine Bacteria (Auto) 08/01/21 08/01/21 08/01/21 00:00 07:07 07:07 WBC 5.62 RBC 5.55 Hgb 16.0 Hct 46.8 MCV 84.3 MCH 28.8 MCHC 34.2 RDW Std Deviation 42.2 RDW Coeff of Roxana 13.7 Plt Count 163 MPV 11.0 H Immature Gran % (Auto) 0.2 Neut % (Auto) 78.4 Lymph % (Auto) 13.5 Mathews % (Auto) 7.7 Eos % (Auto) 0.0 Baso % (Auto) 0.2 Neut # (Auto) 4.41 Lymph # (Auto) 0.76 L Mathews # (Auto) 0.43 Eos # (Auto) 0.00 Baso # (Auto) 0.01 Immature Gran # (Auto) 0.01 ESR Fibrinogen Sodium 133 L Potassium 4.0 Chloride 97 L Carbon Dioxide 30 Anion Gap 7.0 BUN 18 Creatinine 0.91 Est Cr Clr Drug Dosing 181.8 Est GFR ( Amer) 116.7 Est GFR (Non-Af Amer) 100.7 BUN/Creatinine Ratio 20.0 Glucose 124 H POC Glucose Calcium 9.0 Magnesium 2.1 Ferritin Lactate Dehydrogenase C-Reactive Protein 13.40 H NT-Pro-B Natriuret Pep Urine Color Dark Yellow Urine Appearance Clear Urine pH 6.0 Ur Specific [place] 1.019 Urine Protein 2+ H Urine Glucose (UA) Negative Urine Ketones Negative Urine Blood Trace H Urine Nitrite Negative Urine Bilirubin Negative Urine Urobilinogen Positive H Ur Leukocyte Esterase Negative Urine WBC (Auto) 1-5 Urine RBC (Auto) 0-4 U Hyaline Cast (Auto) 1-5 U Epithel Cells (Auto) 10-20 H Urine Bacteria (Auto) Negative 08/01/21 07:55 WBC RBC Hgb Hct MCV MCH MCHC RDW Std Deviation RDW Coeff of Roxana Plt Count MPV Immature Gran % (Auto) Neut % (Auto) Lymph % (Auto) Mathews % (Auto) Eos % (Auto) Baso % (Auto) Neut # (Auto) Lymph # (Auto) Mathews # (Auto) Eos # (Auto) Baso # (Auto) Immature Gran # (Auto) ESR Fibrinogen Sodium Potassium Chloride Carbon Dioxide Anion Gap BUN Creatinine Est Cr Clr Drug Dosing Est GFR ( Amer) Est GFR (Non-Af Amer) BUN/Creatinine Ratio Glucose POC Glucose 116 H Calcium Magnesium Ferritin Lactate Dehydrogenase C-Reactive Protein NT-Pro-B Natriuret Pep Urine Color Urine Appearance Urine pH Ur Specific [place] Urine Protein Urine Glucose (UA) Urine Ketones Urine Blood Urine Nitrite Urine Bilirubin Urine Urobilinogen Ur Leukocyte Esterase Urine WBC (Auto) Urine RBC (Auto) U Hyaline Cast (Auto) U Epithel Cells (Auto) Urine Bacteria (Auto) PG Care Time/CCT Total # of Minutes Spent Total Time Spent with Patient: Total time spent is greater than 50% in coordination of care (as documented) at patient's floor/unit and/or counseling patient: Coding Level of Care Code 71582 Subseq Hosp Care Lvl 3 Diagnoses Pneumonia due to COVID-19 virus U07.1; J12.82 Acute hypoxemic respiratory failure J96.01 Hyponatremia E87.1 Prediabetes R73.03 BPH (benign prostatic hyperplasia) N40.0 Dyslipidemia E78.5 Morbid obesity with BMI of 50.0-59.9, adult E66.01; Z68.43 DVT prophylaxis Z29.9
[2021-08-01] MEDS: REMDESIVIR 100 MG in SODIUM CHLORIDE 0.9% 230 ML IV SCH (12:03)
[2021-08-01] MEDS: BARICITINIB 2 MG TAB PO SCH (12:03)
[2021-08-01] MEDS: SODIUM CHLORIDE 0.9% 10ML FLUSH IV SCH (14:13)
--- NOTE | 2021-08-01 16:48 | Pulmonary Consultation ---
Date of Consultation August 01, 2021 Assessment & Plan (1) Acute hypoxemic respiratory failure: (2) Pneumonia due to COVID-19 virus: (3) Morbid obesity with BMI of 50.0-59.9, adult: 45-year-old male with morbid obesity, hyperlipidemia, hypertension and generalized anxiety disorder presenting to the hospital due to acute hypoxemic respiratory failure secondary to COVID-19 viral pneumonia. Continue to wean oxygen as able. Recommend weaning FiO2 prior to weaning the flow rate. He has an ARDS-like picture. Recommend keeping his volume status on the tray drier side. His inflammatory markers are very elevated. We have initiated baricitinib at a dose of 4 mg daily. We will continue this for the full course of 14 days unless he is intubated or discharged prior to 14 days. I have reduced his Decadron dose to the traditional dose of 6 mg daily. I highly encouraged him to prone. He has been resistant to the idea of proning. I discussed this with the nurse and asked her to encourage him to continue proning. He was also counseled on the use of incentive spirometry and flutter valve. Continue a course of remdesivir and azithromycin for a total of 5 days. Recommend trending his LFTs and creatinine. Will defer anticoagulation to the primary team. He should be at least on VTE prophylaxis. I am not certain that there is a benefit of full dose anticoagulation without proof of venous thromboembolism. The patient has a high likelihood of sudden decompensation requiring intubation mechanical ventilation. Should he decompensate, recommend consulting with the ICU team. Pulmonary will sign off at this time. Please call with questions. Thank you for the consultation. History of Present Illness Reason for Consultation: Acute hypoxemic respiratory failure secondary to COVID- 19 viral pneumonia Attending Physician: George Cornell History of Present Illness 45 male with a past medical history of morbid obesity, hyperlipidemia, BPH, hypertension and anxiety present to the ER to shortness of breath. He has had increasing fatigue and dyspnea. His symptoms started late June. He was tested positive for COVID-19 July 27. 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 He is not certain where he got COVID-19. He is unvaccinated. He was found to be hypoxic in the ER with increased respiratory rates. He notes that he smoked cigarettes 20 years ago. He denies any exotic pets such as birds. He does not vape or use e- cigarettes. He is currently requiring high flow nasal cannula at settings of 35 L and 80% FiO2. Chest x-ray is demonstrating extensive multifocal airspace opacities. No leukocytosis is seen on his labs. CRP is elevated to 13.4. Decreased slightly from 15.3 yesterday. He is currently receiving remdesivir 100 mg daily. He was also on 8 mg of Decadron. I have decreased the dose to 6 mg of Decadron. He is currently on azithromycin to 50 mg daily. We have started him on baricitinib 4 mg daily given his elevated CRP level. Allergies Allergy/AdvReac Type Severity Reaction Status Date / Time No Known Allergies Allergy Verified 07/31/21 09:30 Home Medications Medication Instructions Recorded Confirmed Type naproxen sodium 220 mg capsule 440 mg PO Q12H PRN 08/03/18 07/31/21 History (Aleve) pseudoephedrine-ibuprofen 30 2 tab PO QID PRN 07/31/21 07/31/21 History mg-200 mg tablet Patient History Medical History (Updated 08/01/21 @ 16:41 by Yao Garza MD) Acute hypoxemic respiratory failure Anxiety Depression Dyslipidemia GERD (gastroesophageal reflux disease) Left sided chest pain Morbid obesity with BMI of 50.0-59.9, adult Pneumonia due to COVID-19 virus Prediabetes Surgical History History of tonsillectomy Status post medial meniscus repair Family History Other Heart disease Social History Smoking Status: Never smoker Second Hand Exposure: No; Hx Alcohol Use: Yes Alcohol type: beer Hx Substance Use: No Preferred Language: Bulgarian Communication Ability: Effective Flavor Tank Tender Required: No Beliefs That Will Affect Care: None Current Living Situation: Spouse Other Information That Helps Us Care for You: No Feels Safe at Home: Yes Safety Concerns: Feels Safe At This Time Assistive Devices: None Review of Systems Review of Systems: All systems reviewed & are unremarkable except as noted in HPI & below Physical Exam Physical Exam: Constitutional: Morbidly obese appearing male in no significant distress. High flow nasal cannula is in place. Eyes: Pupils are equal round and reactive to light. Conjunctivae are normal. Anicteric sclera. Ears nose, mouth and throat: No obvious facial deformities noted. Neck: Trachea is midline. Visual inspection is normal. Respiratory: Diminished lung sounds bilaterally. No wheezes. Cardiovascular: Regular rate and rhythm. No murmurs. No edema. Gastrointestinal: Normal bowel sounds, soft, nontender and nondistended. No hepatosplenomegaly noted. Musculoskeletal: No cyanosis. Patient is able to move all extremities. Strength is 5 out of 5 in the upper and lower extremities. Skin: No rashes, warm dry and intact. Neurologic: No obvious focal neurological deficits seen. Psychiatric: Alert and oriented x3 with a euthymic affect. Results & Data Results & Data ([facility]) Vital Signs (Past 12 Hours) Vital Signs Temp Pulse Pulse Resp BP BP Pulse Ox 08/01/21 16:01 68 08/01/21 15:33 89 24 90 08/01/21 15:19 98.1 F 72 20 149/75 H 91 08/01/21 10:59 97.9 F 75 20 120/80 90 08/01/21 08:40 75 08/01/21 07:41 77 20 94 08/01/21 06:45 90 08/01/21 06:12 91 08/01/21 05:04 97.9 F 71 16 119/61 93 Vital signs, labs and imaging were personally viewed as noted per the HPI. PG Care Time/CCT Total # of Minutes Spent Total Time Spent with Patient: Total time spent is greater than 50% in coordination of care (as documented) at patient's floor/unit and/or counseling patient: Coding Level of Care Code 68599 Initial Inpt Care Lvl 3 Diagnoses Acute hypoxemic respiratory failure J96.01 Pneumonia due to COVID-19 virus U07.1; J12.82 Morbid obesity with BMI of 50.0-59.9, adult E66.01; Z68.43
[2021-08-01] MEDS ORDERED: ENOXAPARIN 100 MG/1ML SYR SQ SCH (21:00)
[2021-08-02 07:39] LABS: Hematocrit (blood only) 46.9 % (42-52); Hemoglobin 15.9 g/dL (14.0-18.0); Immature Granulocytes # (auto) 0.02 K/uL (0.00-0.02); Immature Granulocytes % (auto) 0.4 %; Lymphocytes # (auto) 1.26 K/uL (1.2-3.4); Lymphocytes % (auto) 26.6 %; Mean Corpuscular Hemoglobin 28.8 pg (25-34); Mean Corpuscular Hgb Conc 33.9 g/dL (32-36); Mean Corpuscular Volume 84.8 fL (80-100); Mean Platelet Volume 11.6 fL (7.4-10.4); Monocytes # (auto) 0.57 K/uL (0.11-0.59); Neutrophils # (auto) 2.89 K/uL (1.4-6.5); Platelet Count 210 K/uL (130-400); RDW Coefficient of Variation 13.9 % (11.5-14.5); RDW Standard Deviation 43.1 fL (36.4-46.3); Red Blood Count 5.53 M/uL (4.7-6.1); White Blood Count 4.74 K/uL (4.8-10.8)
[2021-08-02 08:04] LABS: C Reactive Protein 6.99 mg/dl (0-0.29); Calcium 8.8 mg/dl (8.5-10.1); Creatinine Clr Calc Pharmacy 187.3 ml/min; Est GFR (African American) 119.4 ml/min; Potassium 4.2 mmol/L (3.5-5.1)
[2021-08-02] MEDS ORDERED: FUROSEMIDE 20 MG in SYRINGE 0 ML IV ONE (08:17)
[2021-08-02] MEDS ORDERED: FUROSEMIDE 40 MG/4 ML VIAL IV SCH (08:30)
[2021-08-02] MEDS: dexAMETHasone 6 MG in SYRINGE 0 ML IV SCH (08:47)
[2021-08-02] MEDS: AZITHROMYCIN 250 MG TAB PO SCH (08:50)
[2021-08-02] MEDS: ENOXAPARIN INJ 40 MG/0.4 ML SYR SQ SCH ×2 (08:51→20:56)
[2021-08-02] MEDS: INSULIN ASPART 100 UNITS/ML 3 ML PEN SC SCH ×4 (08:52→21:09)
[2021-08-02] MEDS: BARICITINIB 2 MG TAB PO SCH (09:00)
[2021-08-02] MEDS: REMDESIVIR 100 MG in SODIUM CHLORIDE 0.9% 230 ML IV SCH (11:46)
[2021-08-02] MEDS: SODIUM CHLORIDE 0.9% 10ML FLUSH IV SCH (12:40)
--- NOTE | 2021-08-02 20:32 | Hospitalist Progress Note ---
Date of Service August 02, 2021 Assessment & Plan (1) Pneumonia due to COVID-19 virus: Plan: SEVERE. Scant improvement - minimal decrease in HFNC support today. Most recent CXR with diffuse infiltrates. 08/01/ had escalating O2 requirements c/w severe pneumonia/development of ARDS. Day #3 of IV dexamethasone 6mg. Day #3 of Remdesivir. Day #2 of baricitinib as approved by Dr Garza. Day #3 of azithromycin. Cont proning (did so all last pm). Cont pulm toilet - incentive, flutter. Keep i/O balance negative - cont IV lasix today. (2) Acute hypoxemic respiratory failure: Plan: 2nd #1 as above (3) Hyponatremia: Plan: 2nd poor oral intake, diuresis, etc- resolved BMP am (4) Prediabetes: Plan: a1c 5.8% c/w such BSGs controlled w/ novolog alone (5) BPH (benign prostatic hyperplasia): Plan: no issues at this time (6) Dyslipidemia: (7) Morbid obesity with BMI of 50.0-59.9, adult: Plan: BMI 57 (8) DVT prophylaxis: Plan: lovenox 40mg BID Plan: extensively update pt's by phone this evening and last night questions answered Admission and Anticipated Discharge Date Admission Date: July 31, 2021 Subjective Mr Stovall feels a little better today progressed to HFNC yesterday evening but settings were modestly weaned today he continues with cough and mild HUBBARD but no worse than previous no chest pain eating a little better tele overnight wnl Review of Systems Review of Systems: gen - fatigue present, but no fevers/chills overnight CV - no chest pain or pleuritic pain pulm - no sputum GI - no abd pain or N/V Physical Exam Physical Exam: gen - morbidly obese, no increased work of breathing, a/o x 3 mouth - MMM neck - no JVD heart - RRR, s1 s2 lungs - b/l basilar fine rales, o/w CTA b/l abd - soft NT ND BS+ ext - no edema psych - a/o x 3 Results & Data Results & Data ([facility]) Vital Signs (Past 12 Hours) Vital Signs Temp Pulse Resp BP BP Pulse Ox 08/02/21 19:41 36.6 C 76 20 132/88 94 08/02/21 19:29 75 16 91 08/02/21 16:00 36.9 C 74 22 131/72 90 08/02/21 15:49 83 24 90 08/02/21 11:54 36.7 C 72 20 144/77 H 93 08/02/21 11:37 76 22 90 Laboratory Results Laboratory Results - last 24 hr 08/01/21 08/02/21 08/02/21 20:31 06:49 06:49 WBC 4.74 L RBC 5.53 Hgb 15.9 Hct 46.9 MCV 84.8 MCH 28.8 MCHC 33.9 RDW Std Deviation 43.1 RDW Coeff of Roxana 13.9 Plt Count 210 MPV 11.6 H Immature Gran % (Auto) 0.4 Neut % (Auto) 61.0 Lymph % (Auto) 26.6 [place] % (Auto) 12.0 Eos % (Auto) 0.0 Baso % (Auto) 0.0 Neut # (Auto) 2.89 Lymph # (Auto) 1.26 [place] # (Auto) 0.57 Eos # (Auto) 0.00 Baso # (Auto) 0.00 Immature Gran # (Auto) 0.02 Sodium 135 L Potassium 4.2 Chloride 101 Carbon Dioxide 29 Anion Gap 6.0 BUN 26 H Creatinine 0.88 Est Cr Clr Drug Dosing 187.3 Est GFR ( Amer) 119.4 Est GFR (Non-Af Amer) 103.0 BUN/Creatinine Ratio 29.0 H Glucose 125 H POC Glucose 134 H Calcium 8.8 AST 27 ALT 42 C-Reactive Protein 6.99 H 08/02/21 08/02/21 08/02/21 07:58 11:40 16:24 WBC RBC Hgb Hct MCV MCH MCHC RDW Std Deviation RDW Coeff of Roxana Plt Count MPV Immature Gran % (Auto) Neut % (Auto) Lymph % (Auto) [place] % (Auto) Eos % (Auto) Baso % (Auto) Neut # (Auto) Lymph # (Auto) [place] # (Auto) Eos # (Auto) Baso # (Auto) Immature Gran # (Auto) Sodium Potassium Chloride Carbon Dioxide Anion Gap BUN Creatinine Est Cr Clr Drug Dosing Est GFR ( Amer) Est GFR (Non-Af Amer) BUN/Creatinine Ratio Glucose POC Glucose 114 H 128 H 140 H Calcium AST ALT C-Reactive Protein 08/02/21 20:19 WBC RBC Hgb Hct MCV MCH MCHC RDW Std Deviation RDW Coeff of Roxana Plt Count MPV Immature Gran % (Auto) Neut % (Auto) Lymph % (Auto) [place] % (Auto) Eos % (Auto) Baso % (Auto) Neut # (Auto) Lymph # (Auto) [place] # (Auto) Eos # (Auto) Baso # (Auto) Immature Gran # (Auto) Sodium Potassium Chloride Carbon Dioxide Anion Gap BUN Creatinine Est Cr Clr Drug Dosing Est GFR ( Amer) Est GFR (Non-Af Amer) BUN/Creatinine Ratio Glucose POC Glucose 137 H Calcium AST ALT C-Reactive Protein PG Care Time/CCT Total # of Minutes Spent Total Time Spent with Patient: Total time spent is greater than 50% in coordination of care (as documented) at patient's floor/unit and/or counseling patient: Coding Level of Care Code 58126 Subseq Hosp Care Lvl 2 Diagnoses Pneumonia due to COVID-19 virus U07.1; J12.82 Acute hypoxemic respiratory failure J96.01 Hyponatremia E87.1 Prediabetes R73.03 BPH (benign prostatic hyperplasia) N40.0 Dyslipidemia E78.5 Morbid obesity with BMI of 50.0-59.9, adult E66.01; Z68.43 DVT prophylaxis Z29.9
[2021-08-03 08:34] LABS: BUN Creatinine Ratio 30.6 (10-20); Calcium 8.7 mg/dl (8.5-10.1); Creatinine Clr Calc Pharmacy 188.2 ml/min; Est GFR (African American) 121.7 ml/min; Potassium 4.2 mmol/L (3.5-5.1)
[2021-08-03] MEDS: INSULIN ASPART 100 UNITS/ML 3 ML PEN SC SCH ×4 (08:43→20:10)
[2021-08-03] MEDS: dexAMETHasone 6 MG in SYRINGE 0 ML IV SCH (09:03)
[2021-08-03] MEDS: AZITHROMYCIN 250 MG TAB PO SCH (09:04)
[2021-08-03] MEDS: ENOXAPARIN INJ 40 MG/0.4 ML SYR SQ SCH ×2 (09:04→19:58)
[2021-08-03] MEDS: BARICITINIB 2 MG TAB PO SCH (10:34)
[2021-08-03] MEDS: REMDESIVIR 100 MG in SODIUM CHLORIDE 0.9% 230 ML IV SCH (13:19)
[2021-08-03] MEDS: SODIUM CHLORIDE 0.9% 10ML FLUSH IV SCH (13:20)
[2021-08-03] MEDS: POLYETHYLENE (MIRALAX) 17 GM PACK PO SCH (16:39)
[2021-08-03] MEDS: SENNA 8.6 MG TAB PO SCH (16:40)
--- NOTE | 2021-08-03 19:10 | Hospitalist Progress Note ---
Date of Service August 03, 2021 Assessment & Plan (1) Pneumonia due to COVID-19 virus: Plan: SEVERE but MARKED improvement overnight. Now back to standard NC from HFNC. 10// had escalating O2 requirements c/w severe pneumonia/development of ARDS. Day #4 of IV dexamethasone 6mg. Day #4 of Remdesivir. Day #3 of baricitinib as approved by Dr Garza. Day #4 of azithromycin. Cont proning, pulm toilet, etc I am pleased w/ his progress. (2) Acute hypoxemic respiratory failure: Plan: 2nd #1 as above improving (3) Hyponatremia: Plan: 2nd poor oral intake, diuresis, etc Na 134 today & stable (4) Prediabetes: Plan: a1c 5.8% c/w such BSGs controlled w/ novolog alone (5) BPH (benign prostatic hyperplasia): Plan: no issues at this time (6) Dyslipidemia: (7) Morbid obesity with BMI of 50.0-59.9, adult: (8) DVT prophylaxis: Plan: lovenox 40mg BID Plan: extensively update pt's by phone this evening questions answered she is pleased w/ his progress Admission and Anticipated Discharge Date Admission Date: July 31, 2021 Subjective tele normal overnight HFNC weaned to standard NC this am and has remained stable on such since then he feels good appetite improved minimal cough mild HUBBARD no dyspnea at rest no other new complaints Review of Systems Review of Systems: gen - no fevers, no chills CV - no chest pain, no orthopnea pulm - no sputum GI - no diarrhea/N/V Physical Exam Physical Exam: gen - morbidly obese, no increased work of breathing, a/o x 3 - looks good today mouth - MMM neck - no JVD heart - RRR, s1 s2 lungs - scant fine rales bases, o/w CTA b/l, good air movement abd - soft NT ND BS+ ext - no edema psych - a/o x 3 Results & Data Results & Data ([facility]) Vital Signs (Past 12 Hours) Vital Signs Temp Pulse Resp BP Pulse Ox 08/03/21 18:36 93 08/03/21 15:37 36.4 C L 72 18 120/71 93 08/03/21 11:55 36.6 C 72 18 142/89 H 94 08/03/21 08:42 36.8 C 70 20 120/61 91 08/03/21 07:40 64 20 91 Laboratory Results Laboratory Results - last 24 hr 08/02/21 08/03/21 08/03/21 20:19 07:12 08:07 Sodium 134 L Potassium 4.2 Chloride 101 Carbon Dioxide 27 Anion Gap 6.0 BUN 26 H Creatinine 0.84 Est Cr Clr Drug Dosing 188.2 Est GFR ( Amer) 121.7 Est GFR (Non-Af Amer) 105.0 BUN/Creatinine Ratio 30.6 H Glucose 105 H POC Glucose 137 H 101 H Calcium 8.7 AST 27 ALT 32 08/03/21 08/03/21 12:11 16:36 Sodium Potassium Chloride Carbon Dioxide Anion Gap BUN Creatinine Est Cr Clr Drug Dosing Est GFR ( Amer) Est GFR (Non-Af Amer) BUN/Creatinine Ratio Glucose POC Glucose 119 H 143 H Calcium AST ALT PG Care Time/CCT Total # of Minutes Spent Total Time Spent with Patient: Total time spent is greater than 50% in coordination of care (as documented) at patient's floor/unit and/or counseling patient: Coding Level of Care Code 23942 Subseq Hosp Care Lvl 2 Diagnoses Pneumonia due to COVID-19 virus U07.1; J12.82 Acute hypoxemic respiratory failure J96.01 Hyponatremia E87.1 Prediabetes R73.03 BPH (benign prostatic hyperplasia) N40.0 Dyslipidemia E78.5 Morbid obesity with BMI of 50.0-59.9, adult E66.01; Z68.43 DVT prophylaxis Z29.9
[2021-08-04 06:50] LABS: Hematocrit (blood only) 45.4 % (42-52); Hemoglobin 15.2 g/dL (14.0-18.0); Mean Corpuscular Hemoglobin 28.6 pg (25-34); Mean Corpuscular Hgb Conc 33.5 g/dL (32-36); Mean Corpuscular Volume 85.5 fL (80-100); Mean Platelet Volume 10.7 fL (7.4-10.4); Platelet Count 275 K/uL (130-400); Red Blood Count 5.31 M/uL (4.7-6.1); White Blood Count 7.56 K/uL (4.8-10.8)
[2021-08-04 07:09] LABS: BUN Creatinine Ratio 24.1 (10-20); Calcium 8.8 mg/dl (8.5-10.1); Creatinine Clr Calc Pharmacy 169.8 ml/min; Est GFR (African American) 113.7 ml/min; Est GFR (Non-African American) 98.1 ml/min; Potassium 4.6 mmol/L (3.5-5.1)
[2021-08-04] MEDS: INSULIN ASPART 100 UNITS/ML 3 ML PEN SC SCH ×2 (08:01→11:34)
[2021-08-04] MEDS: dexAMETHasone 6 MG in SYRINGE 0 ML IV SCH (08:06)
[2021-08-04] MEDS: SENNA 8.6 MG TAB PO SCH (08:06)
[2021-08-04] MEDS: AZITHROMYCIN 250 MG TAB PO SCH (08:07)
[2021-08-04] MEDS: POLYETHYLENE (MIRALAX) 17 GM PACK PO SCH (08:07)
[2021-08-04] MEDS: ENOXAPARIN INJ 40 MG/0.4 ML SYR SQ SCH ×2 (08:07→19:24)
[2021-08-04] MEDS: BARICITINIB 2 MG TAB PO SCH (08:50)
[2021-08-04] MEDS: REMDESIVIR 100 MG in SODIUM CHLORIDE 0.9% 230 ML IV SCH (11:20)
[2021-08-04] MEDS: SODIUM CHLORIDE 0.9% 10ML FLUSH IV SCH (12:29)
--- NOTE | 2021-08-04 22:38 | Hospitalist Progress Note ---
Date of Service August 04, 2021 Assessment & Plan (1) Pneumonia due to COVID-19 virus: Plan: SEVERE disease in the first 24 hours of his hospitalization. However, has had MARKED improvement over the last 2 days. Had been on HFNC for about 36 hours, but now weaned to standard NC O2. O2 requirements continue to fall. Day #5 of IV dexamethasone 6mg. Day #5 of Remdesivir. Day #4 of baricitinib. Day #5 of azithromycin. Cont proning, pulm toilet, etc He is improving very, very nicely. (2) Acute hypoxemic respiratory failure: Plan: 2nd #1 as above improving nicely (3) Hyponatremia: Plan: 2nd poor oral intake, diuresis, etc Na now 135 and normalized bmp am (4) Prediabetes: Plan: a1c 5.8% c/w such BSGs controlled w/ novolog alone (5) BPH (benign prostatic hyperplasia): Plan: no issues at this time (6) Dyslipidemia: (7) Morbid obesity with BMI of 50.0-59.9, adult: Plan: BMI 53 (8) DVT prophylaxis: Plan: lovenox 40mg BID Plan: have updated nightly including this evening cont to wean O2 Admission and Anticipated Discharge Date Admission Date: July 31, 2021 Subjective patient feeling very good he denies essentially all complaints he has minimal cough and minimal dyspnea or HUBBARD he is eating well o2 continues to be weaned he is doing pulmonary toilet and proning tele overnight wnl Review of Systems Review of Systems: gen - no fevers, no chills, fatigue resolved cv - no chest pain pulm - no sputum GI - no N/V/D Physical Exam Physical Exam: gen - morbidly obese, NAD, sitting upright at side of bed mouth - MMM neck - no JVD heart - RRR, s1 s2, no murmur lungs - CTA b/l with good air movement abd - soft NT ND BS+ ext - no edema, pulses 2+ b/l psych - a/o x 3 Results & Data Results & Data ([facility]) Vital Signs (Past 12 Hours) Vital Signs Temp Pulse Pulse Resp BP Pulse Ox 08/04/21 22:25 36.9 C 60 20 142/89 H 93 08/04/21 19:14 36.7 C 69 20 135/78 92 08/04/21 16:00 36.7 C 74 19 141/83 H 93 08/04/21 15:02 59 L 08/04/21 11:34 36.5 C 70 19 143/81 H 93 Laboratory Results Laboratory Results - last 24 hr 08/04/21 08/04/21 08/04/21 06:31 06:31 07:33 WBC 7.56 RBC 5.31 Hgb 15.2 Hct 45.4 MCV 85.5 MCH 28.6 MCHC 33.5 RDW Std Deviation 44.0 RDW Coeff of Roxana 14.0 Plt Count 275 MPV 10.7 H Sodium 135 L Potassium 4.6 Chloride 102 Carbon Dioxide 29 Anion Gap 5.0 BUN 22 H Creatinine 0.93 Est Cr Clr Drug Dosing 169.8 Est GFR ( Amer) 113.7 Est GFR (Non-Af Amer) 98.1 BUN/Creatinine Ratio 24.1 H Glucose 108 H POC Glucose 109 H Calcium 8.8 AST 25 ALT 38 08/04/21 08/04/21 11:32 16:26 WBC RBC Hgb Hct MCV MCH MCHC RDW Std Deviation RDW Coeff of Roxana Plt Count MPV Sodium Potassium Chloride Carbon Dioxide Anion Gap BUN Creatinine Est Cr Clr Drug Dosing Est GFR ( Amer) Est GFR (Non-Af Amer) BUN/Creatinine Ratio Glucose POC Glucose 124 H 132 H Calcium AST ALT PG Care Time/CCT Total # of Minutes Spent Total Time Spent with Patient: Total time spent is greater than 50% in coordination of care (as documented) at patient's floor/unit and/or counseling patient: Coding Level of Care Code 57232 Subseq Hosp Care Lvl 2 Diagnoses Pneumonia due to COVID-19 virus U07.1; J12.82 Acute hypoxemic respiratory failure J96.01 Hyponatremia E87.1 Prediabetes R73.03 BPH (benign prostatic hyperplasia) N40.0 Dyslipidemia E78.5 Morbid obesity with BMI of 50.0-59.9, adult E66.01; Z68.43 DVT prophylaxis Z29.9
[2021-08-05 07:02] LABS: Alanine Aminotransferase 40 U/L (12-78); Aspartate Aminotransferase 25 U/L (15-37)
[2021-08-05 07:06] LABS: BUN Creatinine Ratio 24.6 (10-20); Calcium 8.9 mg/dl (8.5-10.1); Creatinine Clr Calc Pharmacy 190.6 ml/min; Est GFR (African American) 120.5 ml/min; Potassium 4.6 mmol/L (3.5-5.1)
[2021-08-05] MEDS: ENOXAPARIN INJ 40 MG/0.4 ML SYR SQ SCH ×2 (08:30→20:19)
[2021-08-05] MEDS: AZITHROMYCIN 250 MG TAB PO SCH (08:30)
[2021-08-05] MEDS: dexAMETHasone 6 MG in SYRINGE 0 ML IV SCH (08:30)
[2021-08-05] MEDS: POLYETHYLENE (MIRALAX) 17 GM PACK PO SCH (08:31)
[2021-08-05] MEDS: SENNA 8.6 MG TAB PO SCH (08:31)
[2021-08-05] MEDS: BARICITINIB 2 MG TAB PO SCH (08:54)
--- NOTE | 2021-08-05 19:25 | Hospitalist Progress Note ---
Date of Service August 05, 2021 Assessment & Plan (1) Pneumonia due to COVID-19 virus: Plan: SEVERE disease in the first 24 hours of his hospitalization. However, has had MARKED improvement over the last 2-3 days. Had been on HFNC for about 36 hours, but now weaned to standard NC O2. O2 requirements continue to fall and now down to 1 L NC. Day #6 of IV dexamethasone 6mg. Completed 5-day course of Remdesivir. Day #5 of baricitinib. Completed 5-day course of azithromycin. Cont proning, pulm toilet, etc 2-step O2 test tomorrow on Friday. At discharge can likely d/c the baricitinib. Consider 30-day course of low-dose xarelto 10mg daily for DVT proph given severity of illness and high inflammatory markers at admission. (2) Acute hypoxemic respiratory failure: Plan: 2nd #1 as above improving nicely nearly resolved 2-step O2 test tomorrow (3) Hyponatremia: Plan: 2nd poor oral intake, diuresis, etc Na 133 roday repeat BMP am (4) Prediabetes: Plan: a1c 5.8% c/w such BSGs controlled w/ novolog alone (5) BPH (benign prostatic hyperplasia): Plan: no issues at this time (6) Dyslipidemia: (7) Morbid obesity with BMI of 50.0-59.9, adult: Plan: BMI ~55 (8) DVT prophylaxis: Plan: lovenox 40mg BID consider xarelto 10mg daily x 30 days at d/c given severity of illness, morbid obesity, high inflammatory markers, and use of baricitinib during the stay Plan: have updated nightly including this evening hopefully d/c home tomorrow Admission and Anticipated Discharge Date Admission Date: July 31, 2021 Subjective patient feeling very good today denies any new complaints eating well no cough minimal HUBBARD O2 weaned to 1 L during my visit I removed O2 - had him walk around room - lowest O2 sat ~86% tele wnl Review of Systems Review of Systems: gen - no fevers/chills CV - no chest pain, no orthopnea pulm - no dyspnea at rest GI - no abd pain, N/V/D Physical Exam Physical Exam: gen - morbidly obese, NAD, looks good; ambulated in room without significant dyspnea mouth - MMM neck - no JVD heart - RRR, s1 s2, no murmur lungs - CTA b/l with good air movement; no rales or wheeze abd - soft NT ND BS+ ext - no edema, pulses 2+ b/l psych - a/o x 3 Results & Data Results & Data ([facility]) Vital Signs (Past 12 Hours) Vital Signs Temp Pulse Resp BP BP Pulse Ox 08/05/21 15:18 36.7 C 83 20 140/80 90 08/05/21 11:34 36.6 C 69 20 143/89 H 94 Laboratory Results Laboratory Results - last 24 hr 08/05/21 08/05/21 05:47 05:47 Sodium 133 L Potassium 4.6 Chloride 102 Carbon Dioxide 26 Anion Gap 5.0 BUN 21 H Creatinine 0.86 Est Cr Clr Drug Dosing 190.6 Est GFR ( Amer) 120.5 Est GFR (Non-Af Amer) 104.0 BUN/Creatinine Ratio 24.6 H Glucose 113 H Calcium 8.9 AST 25 ALT 40 PG Care Time/CCT Total # of Minutes Spent Total Time Spent with Patient: Total time spent is greater than 50% in coordination of care (as documented) at patient's floor/unit and/or counseling patient: Coding Level of Care Code 42003 Subseq Hosp Care Lvl 2 Diagnoses Pneumonia due to COVID-19 virus U07.1; J12.82 Acute hypoxemic respiratory failure J96.01 Hyponatremia E87.1 Prediabetes R73.03 BPH (benign prostatic hyperplasia) N40.0 Dyslipidemia E78.5 Morbid obesity with BMI of 50.0-59.9, adult E66.01; Z68.43 DVT prophylaxis Z29.9
[2021-08-06 07:15] LABS: Hematocrit (blood only) 46.5 % (42-52); Hemoglobin 15.7 g/dL (14.0-18.0); Mean Corpuscular Hemoglobin 28.7 pg (25-34); Mean Corpuscular Hgb Conc 33.8 g/dL (32-36); Mean Platelet Volume 10.6 fL (7.4-10.4); Platelet Count 282 K/uL (130-400); RDW Coefficient of Variation 13.8 % (11.5-14.5); RDW Standard Deviation 42.9 fL (36.4-46.3); Red Blood Count 5.47 M/uL (4.7-6.1); White Blood Count 9.32 K/uL (4.8-10.8)
[2021-08-06 07:38] LABS: BUN Creatinine Ratio 18.6 (10-20); Calcium 9.1 mg/dl (8.5-10.1); Creatinine Clr Calc Pharmacy 149.6 ml/min; Est GFR (African American) 93.8 ml/min; Potassium 4.7 mmol/L (3.5-5.1)
[2021-08-06] MEDS: dexAMETHasone 6 MG in SYRINGE 0 ML IV SCH (08:15)
[2021-08-06] MEDS: ENOXAPARIN INJ 40 MG/0.4 ML SYR SQ SCH (08:15)
[2021-08-06] MEDS: POLYETHYLENE (MIRALAX) 17 GM PACK PO SCH (09:57)
[2021-08-06] MEDS: SENNA 8.6 MG TAB PO SCH (09:58)
--- NOTE | 2021-08-06 10:14 | Discharge Summary ---
Date of Service August 06, 2021 Admission HPI Per Admitting Provider 45 YOM with past medical history of: HLD, SHIRAZ, HLD, and glucose intolerance: Patient is obese. He comes to the EMD today for complaints of increased fatigue, dyspnea, and hypoxia. The patient symptoms started last Friday on July 24, was tested for COVID on FridayJuly 27 and was positive. The patient works as a [employer] for [employer], reports that contact tracing was done and notified. He is not vaccinated. He is and his is asymptomatic/negative and he has one son who is asymptomatic not tested at this time. The patient was hypoxic on arrival at 83% with RR high 20s. He continues to have fevers, chills, body aches, and fatigue. He still remains tachypneic on 5L NC with Spo2 93%, will transition to HFNC. He has lost his sense of smell, has decreased sense of taste. Has had decreased oral intake as well. We have discussed treatment options to include remdesivir, Decadron, oxygen titration, and self proning. I have ordered inflammatory markers and fibrinogen level. W ill increase Decadron dosing to 8mg daily, blood glucose checks and sliding scale insulin if needed. Continue supportive care and tracking of biomarkers and oxygen demand. Patient is not Vacinated and his COVID test on admission is POSITIVE. Principal Diagnosis COVID 19 pneumonia Discharge Exam General: well developed, morbidly obese, no acute distress, comfortable Neck: supple, trachea midline, normal thyroid Lungs: clear to auscultation bilaterally, normal respiratory effort, no accessor y muscle use, no distress Heart: regular S1 and S2, no murmur, peripheral pulses normal, capillary refill normal, no edema Abdomen: soft, NT, ND, + BS, no hepatomegaly, normal to percussion Extremities: normal in appearance, no cyanosis, no petechiae, strength is 5/5 bilaterally Neuro: awake, cooperative, moves all extremities, no focal motor deficits, CN II-XII intact, sensation in extremities intact, normal speech Skin: warm, dry, no rash, normal turgor Psych: Awake, alert oriented x 3, euthymic affect Discharge Data Allergies Allergy/AdvReac Type Severity Reaction Status Date / Time No Known Allergies Allergy Verified 07/31/21 09:30 Consultations 07/31/21 10:05 ED Decision to Admit Stat 08/01/21 10:45 Consult Pulmonology Routine Hospital Course (1) Pneumonia due to COVID-19 virus: SEVERE disease in the first 24 hours of his hospitalization. However, has had MARKED improvement over the last 4 days was on HFNC for about 36 hours, but weaned to standard NC O2. down to room air today, 2 step done, no oxygen needed on exertion either Day #7 of IV dexamethasone 6mg. will change to PO and finish 3 more days at home Completed 5-day course of Remdesivir. Day #6 of baricitinib, no need to continue on discharge Completed 5-day course of azithromycin. recommend 30-day course of low-dose Xarelto 10mg daily for DVT proph given severity of illness and high inflammatory markers at admission, prescription sent to pharmacy (2) Acute hypoxemic respiratory failure: 2nd #1 as above improving nicely resolved 2-step today shows that he does NOT need oxygen at rest or on exertion (3) Hyponatremia: 2nd poor oral intake, diuresis, etc Na came up with better oral intake (4) Prediabetes: a1c 5.8% c/w such BSGs controlled w/ novolog alone diabetic diet on discharge (5) BPH (benign prostatic hyperplasia): no issues at this time (6) Dyslipidemia: (7) Morbid obesity with BMI of 50.0-59.9, adult: BMI ~55 (8) DVT prophylaxis: lovenox 40mg BID Xarelto 10mg daily on discharge d/c to home Total Time Total Time Spent Total Time Spent (In Minutes): 32 Total Time Includes: Examination of the Patient, Discharge Planning and Medication Reconciliation Discharge Plan Discharge Items Patient Disposition: Home - Self-Care Reason For Visit: COVID Discharge Diagnosis: COVID 19 pneumonia Acute hypoxic respiratory failure Condition on Discharge: Good Goals: continue to stay well nourished, well hydrated, well rested complete 3 more days of dexamethasone Activity: Resume your previous activity Driving/Machine Use: No limitations Weightbearing: Full weightbearing Non-emergency contact: Primary Care Provider Call non-emergency contact if: you have any medication questions and your symptoms worsen Follow-up/Referrals: Elliott Vanegas III, MD [Primary Care Provider] - (one week) Diet: Carb Consistent or DM2 Addtl Attending Provider Instructions: Medications: - DEXAMETHASONE: 6mg daily for three more days, start taking tomorrow morning - XARELTO: 10mg daily for 30 days to help prevent blood clots, can start taking tomorrow morning COVID 19 pneumonia, acute hypoxic respiratory failure responded well to dexamethasone and baricitinib down to room air today, you did not need oxygen when walking either no need to continue baricitinib will finish three more days of dexamethasone recommend you take Xarelto 10m daily for 30 days to prevent blood clots due to recent COVID infection, try to stay active Pending Studies at Discharge: No Stand-Alone Forms: My [facility], Smoking Cessation Medications and DC Order Prescriptions: New dexamethasone 4 mg tablet 6 mg PO DAILY 3 Days Qty: 5 RF: 0 Xarelto 10 mg tablet 10 mg PO DAILY 30 Days Qty: 30 RF: 0 Continued naproxen sodium [Aleve] 220 mg Capsule 440 mg PO Q12H PRN (Reason: Pain) RF: 0 Vicks DayQuil (pseudoeph-ibup) 30-200 mg Tablet 2 tab PO QID PRN (Reason: Flu Symptoms) RF: 0 Discharge Orders: Discharge Order (Routine); Ordered 08/06/21 Ordered By: Gurpreet Bush Admission Data Admit Date/Time: 07/31/21 10:45 Attending Provider: Gurpreet Bush Admit Provider: Jamie Jacobo Primary Care Provider: Elliott Vanegas III Other Providers: Jamie Jacobo ; Yao Garza Coding Level of Care Code D/C DAY MANAGEMENT >30 MINS Diagnoses Pneumonia due to COVID-19 virus U07.1; J12.82 Acute hypoxemic respiratory failure J96.01 Hyponatremia E87.1 Prediabetes R73.03 BPH (benign prostatic hyperplasia) N40.0 Dyslipidemia E78.5 Morbid obesity with BMI of 50.0-59.9, adult E66.01; Z68.43 DVT prophylaxis Z29.9
[2021-08-06] MEDS: BARICITINIB 2 MG TAB PO SCH (12:01)
== END 2021-08-06 11:57 | disposition home or self-care (01) | DRG 177 ==
LOC: ED 07:42 → EDINP 10:45 → SUATTDRO 10:45 → 2S 11:00 → 2E 08-01 19:09

== ENCOUNTER 2024-03-01 16:49 | Inpatient (IN) ==
--- NOTE | 2024-03-01 17:09 | ED Triage Note ---
Date of Service March 01, 2024 Provider in Triage Author: Tracee Arana History of Present Illness This patient was briefly evaluated while in triage. An abbreviated physical exam was performed. This patient is a 48-year-old Male who presents to the ED for evaluation of a mass on his scrotum. He states he first noticed a lump on the right scrotum last week which has gradually enlarged. He was seen by the primary care provider and they sent him here for further evaluation. Physical Exam GENERAL: Non-toxic and in no acute distress. HEENT: Pupils equal. RESP: Normal respiratory effort. NEURO: Alert and oriented. No obvious neurological deficits on quick neuro exam. Initial orders for labs and / or imaging were placed and patient was placed in the waiting area until a bed is available. Please see further documentation for the full ED course.
[2024-03-01 17:29] LABS: Basophils # (auto) 0.05 K/uL (0.00-0.20); Basophils % (auto) 0.4 %; Eosinophils # (auto) 0.15 K/uL (0.00-0.50); Eosinophils % (auto) 1.3 %; Hematocrit (blood only) 50.8 % (42.0-52.0); Immature Granulocytes # (auto) 0.04 K/uL (0.01-0.20); Immature Granulocytes % (auto) 0.3 %; Lymphocytes # (auto) 2.45 K/uL (1.20-3.40); Lymphocytes % (auto) 20.7 %; Mean Corpuscular Hemoglobin 28.8 pg (25.0-34.0); Mean Corpuscular Hgb Conc 33.5 g/dL (32.0-36.0); Mean Corpuscular Volume 86.1 fL (80.0-100.0); Mean Platelet Volume 10.8 fL (9.4-12.4); Monocytes # (auto) 0.98 K/uL (0.11-0.59); Monocytes % (auto) 8.3 %; Neutrophils # (auto) 8.14 K/uL (1.40-6.50); Platelet Count 255 K/uL (130-400); RDW Coefficient of Variation 12.1 % (11.5-14.5); RDW Standard Deviation 38.5 fL (36.4-46.3); White Blood Count 11.81 K/ul (4.8-10.8)
[2024-03-01 18:01] LABS: BUN Creatinine Ratio 18.8 (10-20); Bilirubin,Total 0.6 mg/dl (0.2-1.0); Calcium 9.9 mg/dl (8.6-10.3); Creatinine Clr Calc Pharmacy 155.5 ml/min; Est GFR (African American) 118.6 ml/min; Est GFR (Non-African American) 102.3 ml/min; Globulin 4.1 gm/dl (2.5-4.0); Potassium 3.8 mmol/L (3.5-5.1); Total Protein 8.1 gm/dl (6.0-8.3)
--- NOTE | 2024-03-01 19:29 | Ultrasound Report ---
US scrotum/testicle CLINICAL HISTORY: right scrotal swelling, pain TECHNIQUE: Real-time sonographic images of the scrotal contents were obtained. Comparison: None available at the time of this dictation. FINDINGS: The right testicle measures 5.3 x 3.5 x 2.7 cm. The left testicle measures 3.6 x 3.3 x 2.[address] stes are uniform in echogenicity bilaterally. Doppler flow is seen bilaterally. The epididymal heads are unremarkable. There are no hydroceles. No varicoceles were seen. There is a complex fluid collec tion with surrounding vascularity in the bilateral inguinal canals measuring approximately 4.3 x 1.8 x 2.4 cm on the right and 4.2 x 1.8 x 2.2 cm and the left. IMPRESSION: Bilateral inguinal complex fluid collection is nonspecific but given report of secreting pus, abscess cannot be excluded ACT 112: Negative or not required by law. Electronically signed by: Gurpreet Amado M.D. 03/01/2024 7:27 PM
[2024-03-01 20:34] LABS: Appearance Urine Clear (Clear); Bacteria Urine Automated None Seen (None Seen); Bilirubin Urine Negative (Negative); Blood Urine Negative (Negative); Color Urine Yellow; Epithelial Cell Urine Auto 0-2 /hpf (0-2); Glucose Urine UA 3+ (Negative); Ketones Urine 2+ (Negative); Leukocyte Esterase Urine Negative (Negative); Nitrite Urine Negative (Negative); Protein Urine 2+ (Negative); RBC Urine Automated 0-2 /hpf (0-2); Specific Gravity Urine > 1.045 (1.000-1.030); Urobilinogen Urine Negative (Negative); WBC Urine Automated 0-5 /hpf (0-5); pH Urine 5.5 (4.5-7.5)
[2024-03-01] MEDS: OPTIRAY 320 125ml IV ONE (21:06)
[2024-03-01] MEDS: PIPERACILLIN/TAZOBACTAM 4.5 GM/100 ML BAG IV ONE (21:20)
--- NOTE | 2024-03-01 21:53 | CT Scan Report ---
Exam(s): CT ABDOMEN + PELVIS With Contrast IV Amt: 116ml optiray 320 EXAM: CT Abdomen and Pelvis With Intravenous Contrast CLINICAL HISTORY: Reason for exam: fluid collection R testicle. TECHNIQUE: Axial computed tomography images of the abdomen and pelvis with intravenous contrast. CTDI is 84.56 mGy and DLP is 2269.58 mGy-cm. Automated exposure control was utilized for the study. A dose lowering technique was utilized adhering to the principles of ALARA. CONTRAST: Patient received 116ml optiray 320 of IV contrast COMPARISON: None. FINDINGS: Lung bases: Minimal right lower lobe and lingular atelectasis. Remainder of the lung bases are clear. Heart: Unremarkable. No cardiomegaly. No significant pericardial effusion. Normal cardiac size with coronary artery calcifications . ABDOMEN: Liver: Possible mild diffuse fatty liver. Otherwise normal liver. Gallbladder and bile ducts: Unremarkable. No calcified stones. No ductal dilation. Pancreas: Unremarkable. No mass. No ductal dilation. Spleen: Unremarkable. No splenomegaly. Adrenals: Unremarkable. No mass. Kidneys and ureters: Unremarkable. No solid mass. No hydronephrosis. Stomach and bowel: Scattered diverticulosis with no signs of diverticulitis. No obstruction. PELVIS: Appendix: Nonvisualized appendix. No inflammation by the cecum to suggest acute appendicitis. Bladder: Unremarkable. No mass. Reproductive: At the posterior and inferior aspect of the right scrotum there is a fluid collection with peripheral enhancement measuring 3.2 x 1.8 x 2.5 cm concerning for an abscess. ABDOMEN and PELVIS: Intraperitoneal space: Unremarkable. No free air. No significant fluid collection. Bones/joints: Degenerative disease of the spine, bilateral SI joints and hips. No acute fracture. No dislocation. Soft tissues: There is diffuse fluid infiltration with mild enhancement of the superficial fat at the level of the right scrotum concerning for right-sided scrotal cellulitis. Tiny fat-containing umbilical hernia. Vasculature: Atherosclerotic disease of aorta and iliac arteries with no aneurysm. Lymph nodes: Unremarkable. No enlarged lymph nodes. IMPRESSION: 1. Right-sided scrotal abscess with surrounding cellulitis as described above. 2. Diverticulosis with no signs of diverticulitis. No bowel obstruction. 3. Cannot exclude mild fatty liver, otherwise unremarkable abdominal viscera. Communications: Call Doctor Other Electronically signed by: Jaimie Erazo MD 03/01/24 21:52 PM
--- NOTE | 2024-03-01 22:08 | Emergency Department Note ---
Impression & Plan Scrotal abscess, Diabetes mellitus, new onset ED Provider Note NAME: SONI GONGORA Jr AGE: 48 SEX: M : 1975 ARRIVES VIA: Walk-In INFORMANT: Patient, ED PROVIDER(S): Nitza Reynolds MD CHIEF COMPLAINT: Mass to right scrotum HPI: This is a 48-year-old male presenting for right scrotal mass. Patient states that he has had swelling to his right scrotum over the past few days. He notes that he was in the shower when there was some drainage of clear/yellow fluid over the past few days. He went to his primary care physician who was concerned about hernia as well as he has a large hard area over the pubis. Otherwise patient had any fevers or chills. He states he has no medical problems and sees doctors about once a year. ROS: See above HPI for pertinent positives & negatives. A total of 10 systems reviewed and were otherwise negative. PHYSICAL EXAMINATION: General: resting comfortably in no acute distress Head: Normocephalic and atraumatic Eyes: Normal inspection, extraocular muscles intact Ear, nose, throat: Normal external exam Neck: Normal range of motion Respiratory: lungs clear to auscultation bilaterally Cardiovascular: Regular rate/rhythm, no murmur GI: soft, nontender, no guarding or rebound, mild erythema to the scrotum, moderate swelling to the right scrotum no open areas or drainage Extremities: nontender, moves all extremities Neuro: The patient awake and alert, appropriately conversive, no focal deficits, symmetric faces Skin: Warm, dry, and intact MEDICAL DECISION MAKING: This is a 48-year-old male presenting for right scrotal mass/swelling. Concern for scrotal abscess versus Russ's gangrene. Patient said he has medical problems but he is morbidly obese, his sugar is significant elevated concerning for diabetes. He has hypertension at this time as well -Ultrasound of the testicle to complex fluid collections in the right inguinal canal and right scrotum -Discussed with urology who states that patient require CT imaging to rule out intra-abdominal process extending into the scrotum as well as characterizing the scrotal masses -Patient's blood work otherwise reveals leukocytosis to 11.81, slight hyponatremia. Urinalysis reveals glucose and ketones. No signs of DKA. The patient previously states he is not a diabetic however based on his urinalysis, and significant elevated glucose level, concern for diabetes. Will add on A1c here. -CAT scan does reveal a abscess in the right scrotum. -Patient admitted to medicine with IV antibiotics and urology consult Differential diagnosis: Testicular torsion, epididymitis, Russ's gangrene, scrotal abscess ER treatment provided: See below Diagnostics interpreted by me: ECG: None Cardiac Monitoring: An order was placed for continuous cardiac monitoring. The monitor shows a rate of 67 with sinus rhythm. Laboratory studies: As stated above and show below. Imaging studies: See below. Past Med/Surg History Medical History (Updated 03/03/24 @ 10:44 by Nitza Reynolds MD) Pneumonia due to COVID-19 virus Acute hypoxemic respiratory failure Hyponatremia Hypoxia Dyslipidemia Morbid obesity with BMI of 50.0-59.9, adult Anxiety Depression GERD (gastroesophageal reflux disease) Left sided chest pain Surgical History Status post medial meniscus repair History of tonsillectomy Family History Other Heart disease Social History Smoking Status: Never smoker Tobacco Type: Cigarettes Second Hand Exposure: No; Do You Dip or Chew Tobacco: No; Hx Alcohol Use: Yes Alcohol type: beer Hx Substance Use: No Preferred Language: Thai Communication Ability: Effective Formulator Required: No Beliefs That Will Affect Care: None Current Living Situation: Family current occupational status: employed Feels Safe at Home: Yes Childhood Exposure to Second-Hand Smoke: Yes Diet: regular caffeine: Yes Dental Care, Regularly: No Physical Activity Frequency: 5-6 Times per Week Seatbelt Use: always Sunscreen Use: No Assistive Devices: None Allergies Allergies Allergy/AdvReac Type Severity Reaction Status Date / Time No Known Allergies Allergy Verified 03/01/24 20:57 Home Meds Home Medications Medication Instructions Recorded Confirmed naproxen sodium 220 mg tablet 440 mg PO DIRECTED PRN Pain 03/01/24 03/01/24 (Aleve) Results & Data (ED) Vital Signs Vital Signs - 24 hr 03/01/24 17:07 03/01/24 19:45 03/01/24 19:50 Temperature 36.0 C L Temperature Source Temporal Artery Scan Pulse Rate 87 99 H Pulse Rate [Finger] 107 H Pulse Rhythm [Finger] Regular Pulse Strength [Finger] Normal Respiratory Rate 18 20 Respiratory Effort / Characteristics Non-Labored Non-Labored Spontaneous Respiratory Depth Normal Normal Respiratory Pattern Regular Regular Blood Pressure 147/89 H Blood Pressure [Right Arm] 149/95 H Blood Pressure Mean 108 Blood Pressure Mean [Right Arm] 113 Pulse Oximetry 96 Oxygen Delivery Method Room Air Room Air Sepsis Recent Fever Within 48 Hours No Sepsis New/Unexplained Change in Mental Status N/A Sepsis Action Taken by Nursing No Action Required 03/01/24 20:00 03/01/24 21:12 03/01/24 22:00 Temperature Temperature Source Pulse Rate 103 H 82 86 Pulse Rate [Finger] Pulse Rhythm [Finger] Pulse Strength [Finger] Respiratory Rate 19 21 17 Respiratory Effort / Characteristics Respiratory Depth Respiratory Pattern Blood Pressure 141/87 H 153/113 H 154/92 H Blood Pressure [Right Arm] Blood Pressure Mean 105 126 112 Blood Pressure Mean [Right Arm] Pulse Oximetry Oxygen Delivery Method Sepsis Recent Fever Within 48 Hours Sepsis New/Unexplained Change in Mental Status Sepsis Action Taken by Nursing 03/02/24 00:59 Temperature Temperature Source Pulse Rate Pulse Rate [Finger] Pulse Rhythm [Finger] Pulse Strength [Finger] Respiratory Rate Respiratory Effort / Characteristics Respiratory Depth Respiratory Pattern Blood Pressure Blood Pressure [Right Arm] Blood Pressure Mean Blood Pressure Mean [Right Arm] Pulse Oximetry Oxygen Delivery Method Room Air Sepsis Recent Fever Within 48 Hours Sepsis New/Unexplained Change in Mental Status Sepsis Action Taken by Nursing Laboratory Data 03/02/24 07:42 03/03/24 07:26 Lab Results 03/01/24 03/01/24 Range/Units 17:15 18:50 WBC 11.81 H (4.8-10.8) K/ul RBC 5.90 (4.70-6.10) M/uL Hgb 17.0 (14.0-18.0) g/dl Hct 50.8 (42.0-52.0) % MCV 86.1 (80.0-100.0) fL MCH 28.8 (25.0-34.0) pg MCHC 33.5 (32.0-36.0) g/dL RDW Std Deviation 38.5 (36.4-46.3) fL RDW Coeff of [place]ox[place] 12.1 (11.5-14.5) % Plt Count 255 (130-400) K/uL MPV 10.8 (9.4-12.4) fL Immature Gran % (Auto) 0.3 % Neut % (Auto) 69.0 % Lymph % (Auto) 20.7 % [place] % (Auto) 8.3 % Eos % (Auto) 1.3 % Baso % (Auto) 0.4 % Neut # (Auto) 8.14 H (1.40-6.50) K/uL Lymph # (Auto) 2.45 (1.20-3.40) K/uL [place] # (Auto) 0.98 H (0.11-0.59) K/uL Eos # (Auto) 0.15 (0.00-0.50) K/uL Baso # (Auto) 0.05 (0.00-0.20) K/uL Immature Gran # (Auto) 0.04 (0.01-0.20) K/uL Sodium 132 L (136-145) mmol/L Potassium 3.8 (3.5-5.1) mmol/L Chloride 94 L (98-107) mmol/L Carbon Dioxide 26 (21-32) mmol/L Anion Gap 12 H (3-11) BUN 16 (6-23) mg/dl Creatinine 0.85 (0.6-1.4) mg/dl Est Cr Clr Drug Dosing 155.5 ml/min Est GFR ( Amer) 118.6 ml/min Est GFR (Non-Af Amer) 102.3 ml/min BUN/Creatinine Ratio 18.8 (10-20) Glucose 369 H* (70-99(Fasting)) mg/dl Estimat Average Glucose 361 mg/dl Hemoglobin A1c 14.2 H (4.5-5.6) % Calcium 9.9 (8.6-10.3) mg/dl Total Bilirubin 0.6 (0.2-1.0) mg/dl AST 11 L (13-39) U/L ALT 12 (7-52) U/L Alkaline Phosphatase 114 H (34-104) U/L Total Protein 8.1 (6.0-8.3) gm/dl Albumin 4.0 (3.4-5.0) gm/dl Globulin 4.1 H (2.5-4.0) gm/dl Albumin/Globulin Ratio 1.0 (0.9-2) Procalcitonin 0.06 (0-0.5) ng/ml Urine Color Yellow Urine Appearance Clear (Clear) Urine pH 5.5 (4.5-7.5) Ur Specific [place] > 1.045 H (1.000-1.030) Urine Protein 2+ H (Negative) Urine Glucose (UA) 3+ H (Negative) Urine Ketones 2+ H (Negative) Urine Blood Negative (Negative) Urine Nitrite Negative (Negative) Urine Bilirubin Negative (Negative) Urine Urobilinogen Negative (Negative) Ur Leukocyte Esterase Negative (Negative) Urine WBC (Auto) 0-5 (0-5) /hpf Urine RBC (Auto) 0-2 (0-2) /hpf U Hyaline Cast (Auto) 3-5 H (0-2) /lpf U Epithel Cells (Auto) 0-2 (0-2) /hpf Urine Bacteria (Auto) None Seen (None Seen) Administered Medications Piperacillin Sod/Tazobactam (Sod 4.5 gm/ Dextrose) 100 mls @ 25 mls/hr IV Q8H DIGNA; Protocol Stop: 03/12/24 01:59 Last Infusion: 03/03/24 05:52 Dose: Infused Documented By: Admin: 03/03/24 01:52 Dose: 25 mls/hr Documented By: Infusion: 03/02/24 21:09 Dose: Infused Documented By: Admin: 03/02/24 17:09 Dose: 25 mls/hr Documented By: Infusion: 03/02/24 13:08 Dose: Infused Documented By: Admin: 03/02/24 09:32 Dose: 25 mls/hr Documented By: Infusion: 03/02/24 07:03 Dose: Infused Documented By: Admin: 03/02/24 03:21 Dose: 25 mls/hr Documented By: Daptomycin 650 mg/ Syringe 13 mls @ 6.5 mls/min IV Q24H DIGNA; Protocol Stop: 03/04/24 09:59 Last Admin: 03/03/24 10:32 Dose: 6.5 mls/min Documented By: Admin: 03/02/24 10:57 Dose: 6.5 mls/min Documented By: CHYNA Insulin Aspart (Insulin Aspart Per Unit Charge) 0 units SC ACHS DIGNA Stop: 04/01/24 16:29 Last Admin: 03/03/24 08:23 Dose: 10 units Documented By: CHYNA Co-signed By: FRANSISCA Admin: 03/02/24 21:13 Dose: 7 units Documented By: THANH Co-signed By: MARYELLEN Admin: 03/02/24 17:04 Dose: 9 units Documented By: CHYNA Co-signed By: FRANSISCA Oxycodone HCl (Oxycodone Hcl Ir 5 Mg Tab (Immediate Release)) 5 mg PO Q4H PRN PRN Reason: Pain Stop: 03/16/24 01:21 Last Admin: 03/03/24 08:27 Dose: 5 mg Documented By: CHYNA Discontinued Medications Bupivacaine HCl (Bupivacaine 0.5 % 5 Mg/1 Ml Mpf 30ml Vial) Confirm Administered Dose 30 ml .ROUTE .STK-MED ONE Stop: 03/02/24 13:32 Last Admin: 03/02/24 14:29 Dose: 5 ml Documented By: KAY Piperacillin Sod/Tazobactam Sod (Zosyn) 4.5 gm in 100 mls @ 200 mls/hr IV NOW ONE Stop: 03/01/24 21:37 Last Infusion: 03/01/24 22:10 Dose: Infused Documented By: Admin: 03/01/24 21:20 Dose: 200 mls/hr Documented By: CORDELIA Sodium Chloride (Nss) 1,000 mls @ 125 mls/hr IV .Q8H DIGNA Stop: 03/02/24 17:21 Last Infusion: 03/02/24 13:51 Dose: Infused Documented By: Admin: 03/02/24 09:29 Dose: 125 mls/hr Documented By: Infusion: 03/02/24 09:29 Dose: Infused Documented By: Admin: 03/02/24 02:03 Dose: 125 mls/hr Documented By: Insulin Aspart (Insulin Aspart Per Unit Charge) 5 units SC NOW STA Stop: 03/01/24 22:51 Last Admin: 03/01/24 23:00 Dose: 5 units Documented By: CORDELIA Co-signed By: JACK Insulin Aspart (Insulin Aspart Per Unit Charge) 0 units SC Q6 DIGNA Stop: 04/01/24 05:59 Last Admin: 03/02/24 12:51 Dose: 3 units Documented By: CHYNA Co-signed By: FRANSISCA Admin: 03/02/24 05:49 Dose: 3 units Documented By: Co-signed By: CHELSY Insulin Aspart (Insulin Aspart Per Unit Charge) 7 units SC NOW STA Stop: 03/02/24 02:00 Last Admin: 03/02/24 02:18 Dose: 7 units Documented By: Co-signed By: MARTIN Insulin Glargine (Lantus Per Unit Charge) 7 units SQ NOW STA Stop: 03/01/24 22:51 Last Admin: 03/01/24 23:01 Dose: 7 units Documented By: CORDELIA Co-signed By: JACK Insulin Glargine (Lantus Per Unit Charge) 7 units SQ BID DIGNA Stop: 04/01/24 08:59 Last Admin: 03/02/24 09:29 Dose: 7 units Documented By: CHYNA Co-signed By: FRANSISCA Insulin Glargine (Lantus Per Unit Charge) 10 units SQ BID DIGNA Stop: 04/01/24 20:59 Last Admin: 03/03/24 08:24 Dose: 10 units Documented By: CHYNA Co-signed By: FRANSISCA Admin: 03/02/24 21:13 Dose: 10 units Documented By: THANH Co-signed By: MARYELLEN Ioversol (Optiray 320 125ml) 116 ml IV ONCE ONE Stop: 03/01/24 21:06 Last Admin: 03/01/24 21:06 Dose: 116 ml Documented By: KARIME Imaging Data Radiologist's Impression: Scrotum Ultrasound 03/01/24 17:10 US scrotum/testicle CLINICAL HISTORY: right scrotal swelling, pain TECHNIQUE: Real-time sonographic images of the scrotal contents were obtained. Comparison: None available at the time of this dictation. FINDINGS: The right testicle measures 5.3 x 3.5 x 2.7 cm. The left testicle measures 3.6 x 3.3 x 2.[address]stes are uniform in echogenicity bilaterally. Doppler flow is seen bilaterally. The epididymal heads are unremarkable. There are no hydroceles. No varicoceles were seen. There is a complex fluid collection with surrounding vascularity in the bilateral inguinal canals measuring approximately 4.3 x 1.8 x 2.4 cm on the right and 4.2 x 1.8 x 2.2 cm and the left. IMPRESSION: Bilateral inguinal complex fluid collection is nonspecific but given report of secreting pus, abscess cannot be excluded ACT 112: Negative or not required by law. Electronically signed by: Gurpreet Amado M.D. 03/01/2024 7:27 PM Abdomen/Pelvis CT 03/01/24 20:30 CR Exam(s): CT ABDOMEN + PELVIS With Contrast IV Amt: 116ml optiray 320 EXAM: CT Abdomen and Pelvis With Intravenous Contrast CLINICAL HISTORY: Reason for exam: fluid collection R testicle. TECHNIQUE: Axial computed tomography images of the abdomen and pelvis with intravenous contrast. CTDI is 84.56 mGy and DLP is 2269.58 mGy-cm. Automated exposure control was utilized for the study. A dose lowering technique was utilized adhering to the principles of ALARA. CONTRAST: Patient received 116ml optiray 320 of IV contrast COMPARISON: None. FINDINGS: Lung bases: Minimal right lower lobe and lingular atelectasis. Remainder of the lung bases are clear. Heart: Unremarkable. No cardiomegaly. No significant pericardial effusion. Normal cardiac size with coronary artery calcifications . ABDOMEN: Liver: Possible mild diffuse fatty liver. Otherwise normal liver. Gallbladder and bile ducts: Unremarkable. No calcified stones. No ductal dilation. Pancreas: Unremarkable. No mass. No ductal dilation. Spleen: Unremarkable. No splenomegaly. Adrenals: Unremarkable. No mass. Kidneys and ureters: Unremarkable. No solid mass. No hydronephrosis. Stomach and bowel: Scattered diverticulosis with no signs of diverticulitis. No obstruction. PELVIS: Appendix: Nonvisualized appendix. No inflammation by the cecum to suggest acute appendicitis. Bladder: Unremarkable. No mass. Reproductive: At the posterior and inferior aspect of the right scrotum there is a fluid collection with peripheral enhancement measuring 3.2 x 1.8 x 2.5 cm concerning for an abscess. ABDOMEN and PELVIS: Intraperitoneal space: Unremarkable. No free air. No significant fluid collection. Bones/joints: Degenerative disease of the spine, bilateral SI joints and hips. No acute fracture. No dislocation. Soft tissues: There is diffuse fluid infiltration with mild enhancement of the superficial fat at the level of the right scrotum concerning for right-sided scrotal cellulitis. Tiny fat-containing umbilical hernia. Vasculature: Atherosclerotic disease of aorta and iliac arteries with no aneurysm. Lymph nodes: Unremarkable. No enlarged lymph nodes. IMPRESSION: 1. Right-sided scrotal abscess with surrounding cellulitis as described above. 2. Diverticulosis with no signs of diverticulitis. No bowel obstruction. 3. Cannot exclude mild fatty liver, otherwise unremarkable abdominal viscera. Communications: Call Doctor Other Electronically signed by: Jaimie Erazo MD 03/01/24 21:52 PM Discharge Plan Visit Data Chief Complaint: Testicular Pain Stated Complaint: POSSIBLE HERNIA, TESTICULAR PAIN, CYST ON SCROTUM ED Provider: Nitza Reynolds Discharge Problem: Scrotal abscess, Diabetes mellitus, new onset Patient Disposition: Admitted As Inpatient Discharge Instructions Interventions: ED Discharge Assessment Last Done: 03/02/24 00:59
--- NOTE | 2024-03-01 22:45 | History & Physical Report ---
Date of Service March 01, 2024 Assessment & Plan (1) Scrotal abscess: Plan: 48yo male with hyperglycemia, new onset DM presenting with one week of scrotal pain, swelling and some drainage. Patient is afebrile and non-toxic in appearance. He has a mild neutrophil predominant leukocytosis with WBC=11.8. Scrotal ultrasound with fluid collections in the right inguinal canal and the right side inferior to the right testis. No left sided inguinal collection. CT with right-sided scrotal abscess with surrounding cellulitis. 3.2 x 1.8 x 2.5cm. -Admit to medical -Continue IV antibiotics with Zosyn -Pain control with Tylenol and Oxycodone PRN -Urology consultation appreciated -Will keep patient NPO for now for possible I/D, intervention in the morning (2) Diabetes: Plan: Patient with elevated blood sugar on arrival of 369. No prior diagnosis of diabetes. Has been given 7u Glargine + 5u Novolog thus far with minimal improvement - repeat AIP=885 -Awaiting HgbA1C -Continue IVF - NSS at 125mL/hr -Lantus 7u BID -ISS - will give additional 7u Novolog now -Goal blood sugar 110 - 140 -Diabetes Education consultation appreciated (3) Dyslipidemia: Plan: Patient currently not on any medication -Will order lipid panel for AM -Goal LDL < 100 History of Present Illness Chief Complaint: scrotal pain and abscess Primary Care Provider: Alec Go DO Rakesh Stovall is a pleasant 48yo male with history of GERD, HLP and Pre-DM presenting with pain and areas of firmness/swelling of the scrotum. Patient first noticed pain, swelling and a firm area in the right testicle last week. He was in the shower and squeezed his testicle and was able to express some purulent drainage. The firm areas have persisted. He has some pain behind the scrotum at this time. He denies fevers but did have some chills last week when he first developed symptoms. He denies rigors, pain in the back, flanks, buttock or pelvis. No urinary complaints. No chest pain, cough, SOB, nausea, vomiting, diarrhea. No additional complaints at this time. He was seen in his PCPs office earlier today and was sent to the ER due to concern for hernia. In the ER he is afebrile, HD stable, non-toxic in appearance ER Course: Insulin glargine 7u Insulin Aspart 5u Zosyn 4.5gm Allergies Allergy/AdvReac Type Severity Reaction Status Date / Time No Known Allergies Allergy Verified 03/01/24 20:57 Home Medications Medication Instructions Recorded Confirmed Type naproxen sodium 220 mg tablet 440 mg PO DIRECTED PRN Pain 03/01/24 03/01/24 History (Alekevin) Past Med/Surg History Medical History (Updated 03/02/24 @ 02:02 by Emily Rincon DO) Pneumonia due to COVID-19 virus Acute hypoxemic respiratory failure Hyponatremia Hypoxia Dyslipidemia Morbid obesity with BMI of 50.0-59.9, adult Anxiety Depression GERD (gastroesophageal reflux disease) Left sided chest pain Surgical History Status post medial meniscus repair History of tonsillectomy Family History Other Heart disease Social History Smoking Status: Never smoker Tobacco Type: Cigarettes Second Hand Exposure: No; Do You Dip or Chew Tobacco: No; Hx Alcohol Use: Yes Alcohol type: beer Hx Substance Use: No Preferred Language: Taiwanese Communication Ability: Effective Manager Managed Backup Services Required: No Beliefs That Will Affect Care: None Current Living Situation: Spouse current occupational status: employed Feels Safe at Home: Yes Childhood Exposure to Second-Hand Smoke: Yes Diet: regular caffeine: Yes Dental Care, Regularly: No Physical Activity Frequency: 5-6 Times per Week Seatbelt Use: always Sunscreen Use: No Assistive Devices: None Review of Systems Review of Systems: All systems reviewed & are unremarkable except as noted in HPI & below Physical Exam Physical Exam: General: patient resting comfortably, NAD, non-toxic in appearance, AA&O x 4 Skin: warm, dry, intact, no rashes or lesions HEENT: NC/AT, PERRL, EOMI, anicteric sclera, conjunctiva without injection, external ear normal to inspection and nontender, nares patent, moist mucus membranes, dentition intact, no oropharyngeal lesions, neck supple, trachea midline, no LAD, no thyromegaly, no JVD Heart: +S1/S2, regular, no m/r/g Lungs: equal air entry bilaterally, no rales/rhonchi/wheezes Abd: +BS, soft, NT/ND, no masses/organomegaly/ascites Redness and swelling of the scrotum, R > L, area of firm induration with some fluctuance in the superior right scrotum, area of induration in posterior scrotum. Pain with palpation. No crepitus, bullae, lymphangitis. No drainage or purulence Ext: warm, 2+ pulses in UE/LE bilaterally, no clubbing/cyanosis or edema Neuro: nonfocal, patient AA&O x 4, speech intact, no facial droop, moving all extremities on command with equal strength 5/5 Results & Data Results & Data Vital Signs (Past 12 Hours) Vital Signs Temp Pulse Pulse Resp BP BP Pulse Ox 03/01/24 21:12 82 21 153/113 H 03/01/24 20:00 103 H 19 141/87 H 03/01/24 19:50 99 H 03/01/24 19:45 107 H 20 149/95 H 03/01/24 17:07 36.0 C L 87 18 147/89 H 96 O2 Del Method 03/01/24 21:12 03/01/24 20:00 03/01/24 19:50 03/01/24 19:45 Room Air 03/01/24 17:07 Room Air Laboratory Results Laboratory Results WBC 11.81 K/ul (4.8-10.8) H 03/01/24 17:15 RBC 5.90 M/uL (4.70-6.10) 03/01/24 17:15 Hgb 17.0 g/dl (14.0-18.0) 03/01/24 17:15 Hct 50.8 % (42.0-52.0) 03/01/24 17:15 MCV 86.1 fL (80.0-100.0) 03/01/24 17:15 MCH 28.8 pg (25.0-34.0) 03/01/24 17:15 MCHC 33.5 g/dL (32.0-36.0) 03/01/24 17:15 RDW Std Deviation 38.5 fL (36.4-46.3) 03/01/24 17:15 RDW Coeff of Roxana 12.1 % (11.5-14.5) 03/01/24 17:15 Plt Count 255 K/uL (130-400) 03/01/24 17:15 MPV 10.8 fL (9.4-12.4) 03/01/24 17:15 Immature Gran % (Auto) 0.3 % 03/01/24 17:15 Neut % (Auto) 69.0 % 03/01/24 17:15 Lymph % (Auto) 20.7 % 03/01/24 17:15 [place] % (Auto) 8.3 % 03/01/24 17:15 Eos % (Auto) 1.3 % 03/01/24 17:15 Baso % (Auto) 0.4 % 03/01/24 17:15 Neut # (Auto) 8.14 K/uL (1.40-6.50) H 03/01/24 17:15 Lymph # (Auto) 2.45 K/uL (1.20-3.40) 03/01/24 17:15 [place] # (Auto) 0.98 K/uL (0.11-0.59) H 03/01/24 17:15 Eos # (Auto) 0.15 K/uL (0.00-0.50) 03/01/24 17:15 Baso # (Auto) 0.05 K/uL (0.00-0.20) 03/01/24 17:15 Immature Gran # (Auto) 0.04 K/uL (0.01-0.20) 03/01/24 17:15 Sodium 132 mmol/L (136-145) L 03/01/24 17:15 Potassium 3.8 mmol/L (3.5-5.1) 03/01/24 17:15 Chloride 94 mmol/L (98-107) L 03/01/24 17:15 Carbon Dioxide 26 mmol/L (21-32) 03/01/24 17:15 Anion Gap 12 (3-11) H 03/01/24 17:15 BUN 16 mg/dl (6-23) 03/01/24 17:15 Creatinine 0.85 mg/dl (0.6-1.4) 03/01/24 17:15 Est Cr Clr Drug Dosing 155.5 ml/min 03/01/24 17:15 Est GFR ( Amer) 118.6 ml/min 03/01/24 17:15 Est GFR (Non-Af Amer) 102.3 ml/min 03/01/24 17:15 BUN/Creatinine Ratio 18.8 (10-20) 03/01/24 17:15 Glucose 369 mg/dl (70-99(Fasting)) H* 03/01/24 17:15 POC Glucose 311 mg/dl (70-99) H* 03/02/24 01:39 Calcium 9.9 mg/dl (8.6-10.3) 03/01/24 17:15 Total Bilirubin 0.6 mg/dl (0.2-1.0) 03/01/24 17:15 AST 11 U/L (13-39) L 03/01/24 17:15 ALT 12 U/L (7-52) 03/01/24 17:15 Alkaline Phosphatase 114 U/L (34-104) H 03/01/24 17:15 Total Protein 8.1 gm/dl (6.0-8.3) 03/01/24 17:15 Albumin 4.0 gm/dl (3.4-5.0) 03/01/24 17:15 Globulin 4.1 gm/dl (2.5-4.0) H 03/01/24 17:15 Albumin/Globulin Ratio 1.0 (0.9-2) 03/01/24 17:15 Procalcitonin 0.06 ng/ml (0-0.5) 03/01/24 17:15 Urine Color Yellow 03/01/24 18:50 Urine Appearance Clear (Clear) 03/01/24 18:50 Urine pH 5.5 (4.5-7.5) 03/01/24 18:50 Ur Specific [place] > 1.045 (1.000-1.030) H 03/01/24 18:50 Urine Protein 2+ (Negative) H 03/01/24 18:50 Urine Glucose (UA) 3+ (Negative) H 03/01/24 18:50 Urine Ketones 2+ (Negative) H 03/01/24 18:50 Urine Blood Negative (Negative) 03/01/24 18:50 Urine Nitrite Negative (Negative) 03/01/24 18:50 Urine Bilirubin Negative (Negative) 03/01/24 18:50 Urine Urobilinogen Negative (Negative) 03/01/24 18:50 Ur Leukocyte Esterase Negative (Negative) 03/01/24 18:50 Urine WBC (Auto) 0-5 /hpf (0-5) 03/01/24 18:50 Urine RBC (Auto) 0-2 /hpf (0-2) 03/01/24 18:50 U Hyaline Cast (Auto) 3-5 /lpf (0-2) H 03/01/24 18:50 U Epithel Cells (Auto) 0-2 /hpf (0-2) 03/01/24 18:50 Urine Bacteria (Auto) None Seen (None Seen) 03/01/24 18:50 Impressions Scrotum Ultrasound 03/01/24 17:10 US scrotum/testicle CLINICAL HISTORY: right scrotal swelling, pain TECHNIQUE: Real-time sonographic images of the scrotal contents were obtained. Comparison: None available at the time of this dictation. FINDINGS: The right testicle measures 5.3 x 3.5 x 2.7 cm. The left testicle measures 3.6 x 3.3 x 2.[address]stes are uniform in echogenicity bilaterally. Doppler flow is seen bilaterally. The epididymal heads are unremarkable. There are no hydroceles. No varicoceles were seen. There is a complex fluid collection with surrounding vascularity in the bilateral inguinal canals measuring approximately 4.3 x 1.8 x 2.4 cm on the right and 4.2 x 1.8 x 2.2 cm and the left. IMPRESSION: Bilateral inguinal complex fluid collection is nonspecific but given report of secreting pus, abscess cannot be excluded ACT 112: Negative or not required by law. Electronically signed by: Gurpreet Amado M.D. 03/01/2024 7:27 PM Abdomen/Pelvis CT 03/01/24 20:30 CR Exam(s): CT ABDOMEN + PELVIS With Contrast IV Amt: 116ml optiray 320 EXAM: CT Abdomen and Pelvis With Intravenous Contrast CLINICAL HISTORY: Reason for exam: fluid collection R testicle. TECHNIQUE: Axial computed tomography images of the abdomen and pelvis with intravenous contrast. CTDI is 84.56 mGy and DLP is 2269.58 mGy-cm. Automated exposure control was utilized for the study. A dose lowering technique was utilized adhering to the principles of ALARA. CONTRAST: Patient received 116ml optiray 320 of IV contrast COMPARISON: None. FINDINGS: Lung bases: Minimal right lower lobe and lingular atelectasis. Remainder of the lung bases are clear. Heart: Unremarkable. No cardiomegaly. No significant pericardial effusion. Normal cardiac size with coronary artery calcifications . ABDOMEN: Liver: Possible mild diffuse fatty liver. Otherwise normal liver. Gallbladder and bile ducts: Unremarkable. No calcified stones. No ductal dilation. Pancreas: Unremarkable. No mass. No ductal dilation. Spleen: Unremarkable. No splenomegaly. Adrenals: Unremarkable. No mass. Kidneys and ureters: Unremarkable. No solid mass. No hydronephrosis. Stomach and bowel: Scattered diverticulosis with no signs of diverticulitis. No obstruction. PELVIS: Appendix: Nonvisualized appendix. No inflammation by the cecum to suggest acute appendicitis. Bladder: Unremarkable. No mass. Reproductive: At the posterior and inferior aspect of the right scrotum there is a fluid collection with peripheral enhancement measuring 3.2 x 1.8 x 2.5 cm concerning for an abscess. ABDOMEN and PELVIS: Intraperitoneal space: Unremarkable. No free air. No significant fluid collection. Bones/joints: Degenerative disease of the spine, bilateral SI joints and hips. No acute fracture. No dislocation. Soft tissues: There is diffuse fluid infiltration with mild enhancement of the superficial fat at the level of the right scrotum concerning for right-sided scrotal cellulitis. Tiny fat-containing umbilical hernia. Vasculature: Atherosclerotic disease of aorta and iliac arteries with no aneurysm. Lymph nodes: Unremarkable. No enlarged lymph nodes. IMPRESSION: 1. Right-sided scrotal abscess with surrounding cellulitis as described above. 2. Diverticulosis with no signs of diverticulitis. No bowel obstruction. 3. Cannot exclude mild fatty liver, otherwise unremarkable abdominal viscera. Communications: Call Doctor Other Electronically signed by: Jaimie Erazo MD 03/01/24 21:52 PM PG Care Time/CCT Total # of Minutes Spent Total Time Spent with Patient: Total time spent is greater than 50% in coordination of care (as documented) at patient's floor/unit and/or counseling patient: Coding Level of Care Code 28552 INT INP/OBS CARE 2/55MIN Diagnoses Scrotal abscess N49.2 Type 2 diabetes mellitus without complication, without long-term current use of insulin E11.9 Diabetes mellitus type: type 2 Diabetes mellitus residential insulin use: without residential use Diabetes mellitus complication status: without complication Dyslipidemia E78.5 (2) Diabetes Diabetes mellitus type: type 2 Diabetes mellitus residential insulin use: without terminal make up operator use Diabetes mellitus complication status: without complication Qualified Code(s): E11.9 - Type 2 diabetes mellitus without complications
--- NOTE | 2024-03-01 22:48 | Urology Consultation ---
Date of Consultation March 01, 2024 Assessment & Plan (1) Scrotal abscess: The patient is being admitted on the hospital service. From a urologic perspective we recommend the following: Broad-spectrum antibiotics in the form of Zosyn has been initiated and he should continue. Blood cultures have been sent and will be followed. Antibiotics can be tailored based on these results as well as any cultures obtained at time of incision and drainage of patient's scrotal abscess The patient says he was previously prediabetic but it appears that the patient is a newly diagnosed diabetic. Improved/tight control of his glucose will be optimal and the patient's healing process Will make the patient n.p.o. after midnight as I feel the patient will likely require incision and drainage of a scrotal abscess At the present time the patient is nontoxic-appearing. He is normotensive without tachycardia or fever. He only has a slight leukocytosis. Additional recommendations be forthcoming based on his clinical course as unfolds History of Present Illness Reason for Consultation: Scrotal abscess History of Present Illness This is a 48-year-old male who presented to the emergency department secondary to approximately 1 week of right-sided scrotal pain. Patient said that he noticed some scrotal swelling and progressively worsening pain over the past week. He denies any injuries, cuts, or excoriations to the affected area. He denies any insect or tick bites to the affected area. He notes he has never had this problem before. He denies any dysuria or other urinary symptoms. He denies any back or flank pain. He denies any fevers but has had an occasional chill. Patient says that he was previously diagnosed as prediabetes. Since arrival to the hospital patient has had labs and imaging which independent reviewed. The patient had a scrotal ultrasound which showed a complex fluid collection in the right inguinal canal measuring 4.3 x 1.8 x 2.4 cm and 1 in ferior to the right testicle measuring 4.2 x 1.8 x 2.2 cm. This was followed up with a CT scan of the abdomen and pelvis. This showed the patient had a fluid collection with peripheral enhancement measuring 3.2 x 1.8 x 2.5 cm in the posterior and inferior aspect of the right scrotum. The interpreting radiologist felt that this likely represented a right-sided scrotal abscess. Labs include CBC her white blood cell count had a slight elevation at 11.8. Hemoglobin and hematocrit as well as the platelet count were normal. Chemistry profile showed sodium was 132 with a normal potassium. His BUN and creatinine were both normal. The patient had a glucose level of 360 diet. At the time of my interview he was resting comfortably in bed and he was in no distress Allergies Allergy/AdvReac Type Severity Reaction Status Date / Time No Known Allergies Allergy Verified 03/01/24 20:57 Home Medications Medication Instructions Recorded Confirmed Type naproxen sodium 220 mg tablet 440 mg PO DIRECTED PRN Pain 03/01/24 03/01/24 History (Aleve) Patient History Medical History Pneumonia due to COVID-19 virus Acute hypoxemic respiratory failure Hyponatremia Hypoxia Dyslipidemia Morbid obesity with BMI of 50.0-59.9, adult Prediabetes Anxiety Depression GERD (gastroesophageal reflux disease) Left sided chest pain Surgical History Status post medial meniscus repair History of tonsillectomy Family History Other Heart disease Social History Smoking Status: Never smoker Tobacco Type: Cigarettes Second Hand Exposure: No; Do You Dip or Chew Tobacco: No; Hx Alcohol Use: Yes Alcohol type: beer Hx Substance Use: No Preferred Language: Macedonian Communication Ability: Effective Banking Supervisor Required: No Beliefs That Will Affect Care: None Current Living Situation: Spouse current occupational status: employed Feels Safe at Home: Yes Childhood Exposure to Second-Hand Smoke: Yes Diet: regular caffeine: Yes Dental Care, Regularly: No Physical Activity Frequency: 5-6 Times per Week Seatbelt Use: always Sunscreen Use: No Assistive Devices: None Review of Systems Constitutional: + chills; no fever Ear, Nose, Mouth, Throat: no hearing loss Respiratory: no cough and no dyspnea Cardiovascular: no chest pain Gastrointestinal: no abdominal pain, no nausea and no vomiting Genitourinary: + as per Subjective / HPI Musculoskeletal: no back pain Integumentary: no rash Neurologic: no localized weakness Physical Exam Constitutional: WD/WN, vitals as above Eyes: no conjunctival abnormality ENMT: Ears: no hearing impairment and no external ear abnormality Mouth: no oropharynx abnormality Neck: trachea midline Respiratory: normal respiratory effort; no respiratory distress and no labored breathing Cardiovascular: Rate/Rhythm: regular rate and regular rhythm Gastrointestinal (Abdomen): Abdomen is soft and nontender to palpation Skin: no rashes Neurologic: moves all extremities Psychiatric: A+Ox3, euthymic affect Genitourinary: Patient's genitals were examined. At the time of the exam one of the female attending hospitalists was in the room. The patient's right scrotum was noted to be markedly swollen compared to the left. There is an area of fluctuance in the inferior aspect of the scrotum. There is also an area of fluctuance in the superior portion of the right scrotum. At the time of my exam there are no visible areas of drainage. There is no crepitus in the soft tissue. In the patient's perineum there were no areas of eschar. Results & Data Vital Signs (Past 12 Hours) Vital Signs Temp Pulse Pulse Resp BP BP Pulse Ox 03/01/24 21:12 82 21 153/113 H 03/01/24 20:00 103 H 19 141/87 H 03/01/24 19:50 99 H 03/01/24 19:45 107 H 20 149/95 H 03/01/24 17:07 36.0 C L 87 18 147/89 H 96 O2 Del Method 03/01/24 21:12 03/01/24 20:00 03/01/24 19:50 03/01/24 19:45 Room Air 03/01/24 17:07 Room Air PG Care Time/CCT Total # of Minutes Spent Total Time Spent with Patient: Total time spent is greater than 50% in coordination of care (as documented) at patient's floor/unit and/or counseling patient: Coding Level of Care Code 36531 IN/OBS CONSULT LVL 5,80M Diagnoses Scrotal abscess N49.2
[2024-03-01] MEDS: INSULIN ASPART PER UNIT CHARGE SC STA (23:00)
[2024-03-01] MEDS: LANTUS PER UNIT CHARGE SQ STA (23:01)
[2024-03-02] MEDS ORDERED: GLUCAGON FOR INJ 1 MG VIAL SQ PRN (01:22)
[2024-03-02] MEDS ORDERED: ACETAMINOPHEN 325 MG TAB PO PRN (01:22)
[2024-03-02] MEDS ORDERED: GLUCOSE 10 TAB/TUBE PO PRN (01:22)
[2024-03-02] MEDS ORDERED: ONDANSETRON INJ 2 MG/ML 2 ML VIAL IV PRN (01:22)
[2024-03-02] MEDS ORDERED: CARBOHYDRATES FOR HYPOGLYCEMIA PO PRN (01:22)
[2024-03-02] MEDS ORDERED: DEXTROSE 50% 50 ML SYRINGE IV PRN (01:22)
[2024-03-02] MEDS ORDERED: GLUCOSE 40% GEL 15 GM TUBE PO PRN (01:22)
[2024-03-02] MEDS ORDERED: Nursing to Pharmacy Communication SCH ×2 (01:45→15:15)
[2024-03-02] MEDS: SODIUM CHLORIDE 0.9% 1,000 ML IV SCH (02:03)
[2024-03-02] MEDS: INSULIN ASPART PER UNIT CHARGE SC STA (02:18)
[2024-03-02] MEDS: PIPERACILLIN/TAZOBACTAM 4.5 GM in DEXTROSE 5% MINI-B 100 ML IV SCH (03:21)
[2024-03-02] MEDS: INSULIN ASPART PER UNIT CHARGE SC SCH ×2 (05:49→17:04)
[2024-03-02] MEDS ORDERED: INSULIN ASPART PER UNIT CHARGE SC SCH (07:30)
[2024-03-02 07:47] LABS: Estimated Average Glucose 361 mg/dl; Hemoglobin A1C 14.2 % (4.5-5.6)
--- NOTE | 2024-03-02 07:48 | Urology Progress Note ---
Date of Service March 02, 2024 Assessment & Plan (1) Scrotal abscess: Plan: Follow-up of right scrotal abscess Patient is afebrile with stable vitals Labs reviewed-creatinine 0.63, WBC 12.36 Given findings of right scrotal abscess, recommend incision and drainage of abscess in the operating room Patient is agreeable Will proceed to the OR today for incision and drainage of right scrotal abscess Risks and benefits of procedure to be reviewed with patient by Dr. Yoder Continue with scheduled IV Zosyn preoperatively Keep n.p.o. for procedure Continue supportive care and medical management per primary service will follow Admission and Anticipated Discharge Date Admission Date: March 01, 2024 Subjective Patient seen and examined at bedside this morning He is awake and resting in bed Denies any significant scrotal pain Denies fever or chills No nausea or vomiting Voiding spontaneously Review of Systems Constitutional: as per Subjective / HPI Genitourinary: + as per Subjective / HPI Physical Exam Constitutional: well developed, well nourished and + obese; no acute distress Respiratory: normal respiratory effort; no respiratory distress and no labored breathing Gastrointestinal (Abdomen): Inspection/Auscultation: abdomen normal to inspection Musculoskeletal: Head/Neck/Chest: normocephalic Neurologic: moves all extremities and awake Psychiatric: Orientation: alert and oriented x 3 Genitourinary: Right scrotum with erythema and edema. There is some fluctuance and induration of the inferior and posterior right scrotum. No open areas or drainage. No crepitus. Results & Data Vital Signs (Past 12 Hours) Vital Signs Temp Pulse Pulse Resp BP BP BP 03/02/24 07:24 36.8 C 85 18 108/65 03/02/24 01:15 36.6 C 84 16 122/82 03/02/24 00:59 03/01/24 22:00 86 17 154/92 H 03/01/24 21:12 82 21 153/113 H 03/01/24 20:00 103 H 19 141/87 H 03/01/24 19:50 99 H 03/01/24 19:45 107 H 20 149/95 H Pulse Ox O2 Del Method 03/02/24 07:24 91 Room Air 03/02/24 01:15 94 Room Air 03/02/24 00:59 Room Air 03/01/24 22:00 03/01/24 21:12 05/06/24 20:00 03/01/24 19:50 03/01/24 19:45 Room Air PG Care Time/CCT Total # of Minutes Spent Total Time Spent with Patient: Total time spent is greater than 50% in coordination of care (as documented) at patient's floor/unit and/or counseling patient: Coding Level of Care Code 36095 SUB INP/OBS CARE 2/35MIN Diagnoses Scrotal abscess N49.2
[2024-03-02 08:14] LABS: Hematocrit (blood only) 41.6 % (42.0-52.0); Hemoglobin 14.6 g/dl (14.0-18.0); Mean Corpuscular Hemoglobin 29.6 pg (25.0-34.0); Mean Corpuscular Hgb Conc 35.1 g/dL (32.0-36.0); Mean Corpuscular Volume 84.2 fL (80.0-100.0); Mean Platelet Volume 10.9 fL (9.4-12.4); Platelet Count 216 K/uL (130-400); RDW Coefficient of Variation 12.2 % (11.5-14.5); RDW Standard Deviation 36.7 fL (36.4-46.3); Red Blood Count 4.94 M/uL (4.70-6.10); White Blood Count 12.36 K/ul (4.8-10.8)
[2024-03-02 08:42] LABS: Albumin Level 3.2 gm/dl (3.4-5.0); BUN Creatinine Ratio 20.6 (10-20); Bilirubin Direct 0.1 mg/dl (0-0.2); Bilirubin,Total 0.7 mg/dl (0.2-1.0); Calcium 8.4 mg/dl (8.6-10.3); Chol HDL Ratio 8.1 (0-5); Creatinine Clr Calc Pharmacy 218.8 ml/min; Est GFR (African American) 134.1 ml/min; Est GFR (Non-African American) 115.7 ml/min; Potassium 3.7 mmol/L (3.5-5.1); Total Protein 6.2 gm/dl (6.0-8.3)
[2024-03-02] MEDS: LANTUS PER UNIT CHARGE SQ SCH ×2 (09:29→21:13)
[2024-03-02] MEDS: DAPTOmycin 650 MG in SYRINGE 0 ML IV SCH (10:57)
[2024-03-02] MEDS ORDERED: LIDOCAINE 2% 2 ML VIAL/AMP(20MG/ML) INFIL ONE (13:24)
[2024-03-02] MEDS ORDERED: GLYCOPYRROLATE 0.2 MG/ML VIAL ONE (13:24)
[2024-03-02] MEDS ORDERED: DEXAMETHASONE SOD INJ 4 MG/ML VIAL ONE (13:24)
[2024-03-02] MEDS ORDERED: PROPOFOL IV EMULSION 10 MG/ML 20 ML VIAL IV ONE ×2 (13:24→14:11)
[2024-03-02] MEDS ORDERED: ONDANSETRON INJ 2 MG/ML 2 ML VIAL ONE (13:24)
[2024-03-02] MEDS ORDERED: fentaNYL citrate PF 100 MCG/2 ML VIAL ONE ×2 (13:29→14:17)
[2024-03-02] MEDS ORDERED: MIDAZOLAM HCL 1 MG/ML 2ML VIAL ONE (13:29)
--- NOTE | 2024-03-02 13:34 | Anesthesiology Consultation ---
Date of Service March 02, 2024 History Surgery Operation Date: 03/02/24 08:20 Proposed Procedures p Right Incision and Drainage Scrotal Abscess - Jono Yoder MD Height/Weight Height: 6 ft Weight: 156.2 kg Allergies Allergy/AdvReac Type Severity Reaction Status Date / Time No Known Allergies Allergy Verified 03/01/24 20:57 Medications Home Medications Medication Instructions Recorded Confirmed Last Taken naproxen sodium 220 mg tablet 440 mg PO DIRECTED PRN Pain 03/01/24 03/01/24 03/01/24 10:30 (Aleve) Active Medications Generic Name Dose Route Start Last Admin Trade Name Freq PRN Reason Stop Dose Admin Piperacillin Sod/Tazobactam 100 mls @ 25 mls/hr 03/02/24 02:00 03/02/24 13:08 Sod 4.5 gm/ Dextrose IV 03/12/24 01:59 Infused Q8H DIGNA Infusion Protocol Sodium Chloride 1,000 mls @ 125 mls/hr 03/02/24 01:22 03/02/24 09:29 Nss IV 03/02/24 17:21 125 mls/hr .Q8H DIGNA Administration Daptomycin 650 mg/ Syringe 13 mls @ 6.5 mls/min 03/02/24 10:00 03/02/24 10:57 IV 03/04/24 09:59 6.5 mls/min Q24H DIGNA Administration Protocol Insulin Aspart 0 units 03/02/24 06:00 03/02/24 12:51 Insulin Aspart Per Unit Charge SC 04/01/24 05:59 3 units Q6 DIGNA Administration Insulin Glargine 7 units 03/02/24 09:00 03/02/24 09:29 Lantus Per Unit Charge SQ 04/01/24 08:59 7 units BID DIGNA Administration NPO Date Last Intake of Fluids: 03/01/24 Time Last Intake of Fluids: 23:30 Date Last Intake of Solids: 03/01/24 Time Last Intake of Solids: 23:30 Past Medical History Medical History (Updated 03/02/24 @ 02:02 by Emily Rincon DO) Pneumonia due to COVID-19 virus Acute hypoxemic respiratory failure Hyponatremia Hypoxia Dyslipidemia Morbid obesity with BMI of 50.0-59.9, adult Anxiety Depression GERD (gastroesophageal reflux disease) Left sided chest pain Past Family History Family History Other Heart disease Past Surgical History Surgical History Status post medial meniscus repair History of tonsillectomy Social History Smoking Status: Never smoker Do You Dip or Chew Tobacco: No Hx Alcohol Use: Yes Alcohol type: beer alcohol intake frequency: holidays/special occasions only Hx Substance Use: No Physical Exam Vital Signs Last Vital Signs Temp 37 C 03/02/24 13:16 Pulse 65 03/02/24 13:16 Resp 20 03/02/24 13:16 BP 140/84 03/02/24 13:16 Pulse Ox 94 03/02/24 13:16 O2 Del Method Room Air 03/02/24 13:16 Testing Laboratory Results 03/02/24 07:42 03/02/24 07:42 Hemoglobin A1c 14.2 % (4.5-5.6) H 03/01/24 17:15 Urine Color Yellow 03/01/24 18:50 Urine Appearance Clear (Clear) 03/01/24 18:50 Urine pH 5.5 (4.5-7.5) 03/01/24 18:50 Ur Specific [place] > 1.045 (1.000-1.030) H 03/01/24 18:50 Urine Protein 2+ (Negative) H 03/01/24 18:50 Urine Glucose (UA) 3+ (Negative) H 03/01/24 18:50 Urine Ketones 2+ (Negative) H 03/01/24 18:50 Urine Nitrite Negative (Negative) 03/01/24 18:50 Ur Leukocyte Esterase Negative (Negative) 03/01/24 18:50 Urine WBC (Auto) 0-5 /hpf (0-5) 03/01/24 18:50 Urine RBC (Auto) 0-2 /hpf (0-2) 03/01/24 18:50 U Hyaline Cast (Auto) 3-5 /lpf (0-2) H 03/01/24 18:50 U Epithel Cells (Auto) 0-2 /hpf (0-2) 03/01/24 18:50 Urine Bacteria (Auto) None Seen (None Seen) 03/01/24 18:50 03/02/24 03/02/24 03/02/24 13:23 11:59 05:38 POC Glucose 220 H 223 H 226 H 03/02/24 03/02/24 03/02/24 04:20 01:39 01:37 POC Glucose 257 H 311 H* 305 H*
[2024-03-02] MEDS ORDERED: DROPERIDOL 5 MG/2 ML VIAL ONE (14:06)
[2024-03-02] MEDS: BUPIVACAINE 0.5 % 5 MG/1 ML MPF 30ML VIAL ONE (14:29)
--- NOTE | 2024-03-02 14:47 | Operative Report ---
PG Post Operative Report Pre & Post Diagnosis Operation Date: 03/02/24 08:20 Pre-Op Diagnosis: Scrotal Abscess Post-Op Diagnosis: Scrotal Abscess I identified the patient and participated in the time-out.: Yes Procedure Operation Date: 03/02/24 08:20 Actual Procedures p Right Incision and Drainage Scrotal Abscess(Not Applicable) - Jono Yoder MD Surgeon Jono Yoder MD Wool Scourer Yissel Beth Estimated Blood Loss 5 Findings Consistent with Post-Op Diagnosis Specimens none Description of Procedure 48-year-old gentleman with a large scrotal abscess with induration extending through the inguinal canal and cord. The most fluctuant area of this abscess is in the dependent portion of the scrotum near the perineum and just lateral to the urethra. This was also visualized on preoperative imaging. Patient was placed in dorsal lithotomy position after induction of general anesthesia. He was receiving Zosyn and daptomycin preoperatively. Following sterile prep and drape an incision was made over the fluctuant portion of the abscess. There was an immediate drainage of purulent material. Utilizing a suction device that was able to eat remove the vast majority of this purulent material. I then irrigated with a bulb syringe. I have placed a finger into the defect to confirm that all loculations had been opened. I then packed the cavity with a lap pad temporarily. After getting hemostasis from the cut the skin edge, I began to remove the lap and packed with iodoform gauze. Of note, my incision is approximately 1 inch in length. The cavity is approximately 2-1/2 inches deep by 2 inches wide. A full jar of iodoform gauze was utilized to pack the wound. We then placed 4 x 4's and ABD pads over the incision as well as a supportive undergarment. He was reversed of anesthesia and taken to the recovery room. There were no complications. I attest to the content of the Intraoperative Record and any orders documented therein. Any exceptions are noted below.
--- NOTE | 2024-03-02 15:22 | Anesthesiology Progress Note ---
Date of Service March 02, 2024 Anesthesia Post Procedure Vital Signs Vital Signs: Temp Pulse Pulse Pulse Resp BP BP 03/02/24 15:15 36.6 C 79 16 145/88 H 03/02/24 15:05 36.8 C 79 23 147/92 H 03/02/24 14:55 82 23 143/98 H 03/02/24 14:45 73 20 135/83 03/02/24 14:37 36.0 C L 74 20 139/88 03/02/24 13:16 37 C 65 20 140/84 03/02/24 07:24 36.8 C 85 18 108/65 03/02/24 01:15 36.6 C 84 16 122/82 03/02/24 00:59 03/01/24 22:00 86 17 154/92 H 03/01/24 21:12 82 21 153/113 H 03/01/24 20:00 103 H 19 141/87 H 03/01/24 19:50 99 H 03/01/24 19:45 107 H 20 03/01/24 17:07 36.0 C L 87 18 147/89 H BP Pulse Ox O2 Del Method O2 Flow Rate 03/02/24 15:15 93 Room Air 03/02/24 15:05 98 Room Air 03/02/24 14:55 98 Room Air 03/02/24 14:45 98 Oxymask 5 03/02/24 14:37 94 Oxymask 10 03/02/24 13:16 94 Room Air 03/02/24 07:24 91 Room Air 03/02/24 01:15 94 Room Air 03/02/24 00:59 Room Air 03/01/24 22:00 03/01/24 21:12 03/01/24 20:00 03/01/24 19:50 03/01/24 19:45 149/95 H Room Air 03/01/24 17:07 96 Room Air Pain Intensity Scrotal: Pain Intensity: 1 Transfer of Care Handoff Completed per policy Notes Mental Status: alert / awake / arousable and participated in evaluation Nausea / Vomiting: adequately controlled Pain: adequately controlled Airway Patency, RR, SpO2: stable & adequate BP & HR: stable & adequate Hydration State: stable & adequate Anesthetic Complications: no major complications apparent and Pt Satisfied with anesthetic care
--- NOTE | 2024-03-02 20:06 | Hospitalist Progress Note ---
Date of Service March 02, 2024 Assessment & Plan (1) Scrotal abscess: Plan: CT with right-sided scrotal abscess with surrounding cellulitis. 3.2 x 1.8 x 2.5cm. [facility] consult appreciated. s/p I & D in OR today by Dr Yoder. Continue IV antibiotics with Zosyn. Pain control with Tylenol and Oxycodone PRN. Defer packing, dressings, etc of scrotum to urology. (2) Diabetes: Plan: HgbA1C 14%. Severely uncontrolled at time of presentation. Discussed DM in general with patient today. DM educator consult appreciated. Increase lantus to 10 units BID but suspect he will need much higher amounts. Increase novolog parameters. At discharge start metformin. Will need insulin therapy upon d/c home. Check a TSH in am. (3) Uncontrolled diabetes mellitus with hyperglycemia: (4) Dyslipidemia: Plan: Patient currently not on any medication LDL 124 HDL low - <30 Trigs mildly high c/w "metabolic syndrome" would benefit from Rx Plan DVT proph - add chemical means tomorrow Admission and Anticipated Discharge Date Admission Date: March 01, 2024 Subjective saw patient post-op from his I/D of scrotal abscess mild pain only denies any dyspnea, chest pain or abd pain no N/V reports no prior h/o DM no prior h/o pre-DM to his knowledge either was having nocturia leading up to this admission - 3-4 times each night lost 110 pounds over the last few years - intentional Review of Systems Review of Systems: gen - no fevers Physical Exam Physical Exam: gen - obese, NAD neck - no JVD mouth - MMM; no thrush heart - RRR, s1 s2, no murmur lungs - CTA b/l abd - soft NT ND BS+ ext - no edema, pulses 2+ b/l - packing and dressings intact scrotal region Results & Data Results & Data Vital Signs (Past 12 Hours) Vital Signs Temp Pulse Pulse Resp BP BP Pulse Ox 03/02/24 18:10 36.7 C 83 18 125/70 94 03/02/24 17:22 36.7 C 79 18 132/76 93 03/02/24 16:15 36.6 C 76 18 129/80 94 03/02/24 15:52 36.5 C 77 18 139/79 93 03/02/24 15:15 36.6 C 79 16 145/88 H 93 03/02/24 15:05 36.8 C 79 23 147/92 H 98 03/02/24 14:55 82 23 143/98 H 98 03/02/24 14:45 73 20 135/83 98 03/02/24 14:37 36.0 C L 74 20 139/88 94 03/02/24 13:16 37 C 65 20 140/84 94 O2 Del Method O2 Flow Rate 03/02/24 18:10 Room Air 03/02/24 17:22 Room Air 03/02/24 16:15 Room Air 03/02/24 15:52 Room Air 03/02/24 15:15 Room Air 03/02/24 15:05 Room Air 03/02/24 14:55 Room Air 03/02/24 14:45 Oxymask 5 03/02/24 14:37 Oxymask 10 03/02/24 13:16 Room Air Laboratory Results Laboratory Results - last 24 hr 03/01/24 03/01/24 03/02/24 17:15 18:50 01:37 WBC RBC Hgb Hct MCV MCH MCHC RDW Std Deviation RDW Coeff of Roxana Plt Count MPV Sodium Potassium Chloride Carbon Dioxide Anion Gap BUN Creatinine Est Cr Clr Drug Dosing Est GFR ( Amer) Est GFR (Non-Af Amer) BUN/Creatinine Ratio Glucose POC Glucose 305 H* Estimat Average Glucose 361 Hemoglobin A1c 14.2 H Calcium Total Bilirubin Direct Bilirubin AST ALT Alkaline Phosphatase Total Protein Albumin Triglycerides Cholesterol LDL Cholesterol, Calc VLDL Cholesterol, Calc HDL Cholesterol Cholesterol/HDL Ratio Procalcitonin 0.06 Urine Color Yellow Urine Appearance Clear Urine pH 5.5 Ur Specific [place] > 1.045 H Urine Protein 2+ H Urine Glucose (UA) 3+ H Urine Ketones 2+ H Urine Blood Negative Urine Nitrite Negative Urine Bilirubin Negative Urine Urobilinogen Negative Ur Leukocyte Esterase Negative Urine WBC (Auto) 0-5 Urine RBC (Auto) 0-2 U Hyaline Cast (Auto) 3-5 H U Epithel Cells (Auto) 0-2 Urine Bacteria (Auto) None Seen 03/02/24 03/02/24 03/02/24 01:39 04:20 05:38 WBC RBC Hgb Hct MCV MCH MCHC RDW Std Deviation RDW Coeff of Roxana Plt Count MPV Sodium Potassium Chloride Carbon Dioxide Anion Gap BUN Creatinine Est Cr Clr Drug Dosing Est GFR ( Amer) Est GFR (Non-Af Amer) BUN/Creatinine Ratio Glucose POC Glucose 311 H* 257 H 226 H Estimat Average Glucose Hemoglobin A1c Calcium Total Bilirubin Direct Bilirubin AST ALT Alkaline Phosphatase Total Protein Albumin Triglycerides Cholesterol LDL Cholesterol, Calc VLDL Cholesterol, Calc HDL Cholesterol Cholesterol/HDL Ratio Procalcitonin Urine Color Urine Appearance Urine pH Ur Specific [place] Urine Protein Urine Glucose (UA) Urine Ketones Urine Blood Urine Nitrite Urine Bilirubin Urine Urobilinogen Ur Leukocyte Esterase Urine WBC (Auto) Urine RBC (Auto) U Hyaline Cast (Auto) U Epithel Cells (Auto) Urine Bacteria (Auto) 03/02/24 03/02/24 03/02/24 07:42 11:59 13:23 WBC 12.36 H RBC 4.94 Hgb 14.6 Hct 41.6 L MCV 84.2 MCH 29.6 MCHC 35.1 RDW Std Deviation 36.7 RDW Coeff of Roxana 12.2 Plt Count 216 MPV 10.9 Sodium 135 L Potassium 3.7 Chloride 100 Carbon Dioxide 27 Anion Gap 8 BUN 13 Creatinine 0.63 Est Cr Clr Drug Dosing 218.8 Est GFR ( Amer) 134.1 Est GFR (Non-Af Amer) 115.7 BUN/Creatinine Ratio 20.6 H Glucose 241 H POC Glucose 223 H 220 H Estimat Average Glucose Hemoglobin A1c Calcium 8.4 L Total Bilirubin 0.7 Direct Bilirubin 0.1 AST 8 L ALT 9 Alkaline Phosphatase 94 Total Protein 6.2 D Albumin 3.2 L Triglycerides 202 H Cholesterol 187 LDL Cholesterol, Calc 124 VLDL Cholesterol, Calc 40 H HDL Cholesterol 23 Cholesterol/HDL Ratio 8.1 H Procalcitonin Urine Color Urine Appearance Urine pH Ur Specific [place] Urine Protein Urine Glucose (UA) Urine Ketones Urine Blood Urine Nitrite Urine Bilirubin Urine Urobilinogen Ur Leukocyte Esterase Urine WBC (Auto) Urine RBC (Auto) U Hyaline Cast (Auto) U Epithel Cells (Auto) Urine Bacteria (Auto) 03/02/24 03/02/24 14:39 16:51 WBC RBC Hgb Hct MCV MCH MCHC RDW Std Deviation RDW Coeff of Roxana Plt Count MPV Sodium Potassium Chloride Carbon Dioxide Anion Gap BUN Creatinine Est Cr Clr Drug Dosing Est GFR ( Amer) Est GFR (Non-Af Amer) BUN/Creatinine Ratio Glucose POC Glucose 199 H 189 H Estimat Average Glucose Hemoglobin A1c Calcium Total Bilirubin Direct Bilirubin AST ALT Alkaline Phosphatase Total Protein Albumin Triglycerides Cholesterol LDL Cholesterol, Calc VLDL Cholesterol, Calc HDL Cholesterol Cholesterol/HDL Ratio Procalcitonin Urine Color Urine Appearance Urine pH Ur Specific [place] Urine Protein Urine Glucose (UA) Urine Ketones Urine Blood Urine Nitrite Urine Bilirubin Urine Urobilinogen Ur Leukocyte Esterase Urine WBC (Auto) Urine RBC (Auto) U Hyaline Cast (Auto) U Epithel Cells (Auto) Urine Bacteria (Auto) PG Care Time/CCT Total # of Minutes Spent Total Time Spent with Patient: Total time spent is greater than 50% in coordination of care (as documented) at patient's floor/unit and/or counseling patient: Coding Level of Care Code 66065 SUB INP/OBS CARE 2MIN Diagnoses Scrotal abscess N49.2 Type 2 diabetes mellitus without complication, without long-term current use of insulin E11.9 Diabetes mellitus complication status: without complication Diabetes mellitus director service insulin use: without longterm use Diabetes mellitus type: type 2 Uncontrolled diabetes mellitus with hyperglycemia E11.65 Dyslipidemia E78.5 (2) Diabetes Diabetes mellitus complication status: without complication Diabetes mellitus director service insulin use: without longterm use Diabetes mellitus type: type 2 Qualified Code(s): E11.9 - Type 2 diabetes mellitus without complications
[2024-03-03] MEDS: oxyCODONE HCL IR 5 MG TAB (IMMEDIATE RELEASE) PO PRN (08:27)
--- NOTE | 2024-03-03 08:58 | Urology Progress Note ---
Date of Service March 03, 2024 Assessment & Plan (1) Scrotal abscess: Plan: Patient POD #1 s/p incision and drainage of scrotal abscess with Dr. Yoder Afebrile and hemodynamically stable He remains on Zosyn and daptomycin Wound edges appear healthy Packing was exchanged at bedside He was having some discomfort with procedure Will reassess later today to see if additional packing needs to be placed after premedicating with IV analgesia Wound care nurse consulted--appreciate assistance Continue daily packing/dressing changes is planning to do wound care at home--she will need teaching Continue antibiotics, supportive care and medical management per hospital medicine service will follow Admission and Anticipated Discharge Date Admission Date: March 01, 2024 Subjective Patient seen and examined at bedside Patient sitting up in bed eating breakfast No acute issues overnight Notes mild scrotal discomfort Denies fever or chills Review of Systems Constitutional: as per Subjective / HPI Genitourinary: + as per Subjective / HPI Physical Exam Constitutional: well developed, well nourished and + obese; no acute distress Respiratory: normal respiratory effort; no respiratory distress and no labored breathing Musculoskeletal: Head/Neck/Chest: normocephalic Neurologic: moves all extremities and awake Psychiatric: Orientation: alert and oriented x 3 Genitourinary: With RN present, patient was examined and wound packing exchanged. Patient was pre-medicated for wound care with oxycodone 5 mg. Wound edges appeared healthy. The iodoform packing was removed without issue. 1 inch iodoform was repacked into the wound. I was not able to replace the previously documented amount of iodoform. Patient was having some discomfort with procedure. We opted to conclude and return later to reassess after additional pain medication. Results & Data Vital Signs (Past 12 Hours) Vital Signs Temp Pulse Resp BP BP Pulse Ox O2 Del Method 03/03/24 07:21 36.3 C L 67 16 137/81 95 Room Air 03/03/24 03:50 36.8 C 77 18 108/66 95 Room Air 03/02/24 23:32 37 C 75 18 149/74 H 96 Room Air PG Care Time/CCT Total # of Minutes Spent Total Time Spent with Patient: Total time spent is greater than 50% in coordination of care (as documented) at patient's floor/unit and/or counseling patient: Coding Level of Care Code 33879 SUB INP/OBS CARE 2/35MIN Diagnoses Scrotal abscess N49.2
[2024-03-03 09:03] LABS: BUN Creatinine Ratio 15.9 (10-20); Calcium 8.5 mg/dl (8.6-10.3); Creatinine Clr Calc Pharmacy 199.7 ml/min; Est GFR (African American) 129.2 ml/min; Est GFR (Non-African American) 111.5 ml/min; Magnesium 1.7 mg/dl (1.7-2.4); Potassium 3.6 mmol/L (3.5-5.1)
[2024-03-03 09:18] LABS: Thyroid Stimulating Hormone 0.785 uIu/ml (0.300-4.500)
[2024-03-03] MEDS: ENOXAPARIN INJ 40 MG/0.4 ML SYR SQ SCH (11:04)
[2024-03-03] MEDS: MoRPHine SULFATE 2 MG/ML CARP IV PRN (14:19)
[2024-03-03] MEDS: LANTUS PER UNIT CHARGE SQ SCH (20:51)
--- NOTE | 2024-03-04 06:23 | Hospitalist Progress Note ---
Date of Service March 03, 2024 Assessment & Plan (1) Scrotal abscess: Plan: POD #1 s/p I & D of large scrotal abscess by Dr Yoder, [facility] [place] [facility] appreciate urology assistance packing changes per urology; they have also consulted wound care for assistance Continue IV antibiotics with Zosyn and daptomycin although no cultures are available Thus, will need to tailor his abx to typical pathogens associated with scrotal abscesses Pain control with Tylenol and Oxycodone PRN (2) Diabetes: Plan: HgbA1C 14%. Severely uncontrolled at time of presentation. DM educator consult appreciated. still uncontrolled -- Increase lantus to 15 units BID Increase novolog parameters As we approach discharge start metformin xr (3) Uncontrolled diabetes mellitus with hyperglycemia: Plan: as above (4) Dyslipidemia: Plan: Patient currently not on any medication LDL 124 HDL low - <30 Trigs mildly high c/w "metabolic syndrome" would benefit from Rx will discuss with patient (5) Morbid obesity: Plan: BMI 46.7 Plan DVT proph - add lovenox 40mg daily family updated at bedside I corresponded with Marley Singer from the DM education team; appreciate her recs Admission and Anticipated Discharge Date Admission Date: March 01, 2024 Subjective no new complaints mild-moderate pain of scrotum especially during his dressing changes today family at bedside questions answered we discussed his DM in detail today he is willing to do insulin, and has some knowledge as both parents had DM Review of Systems Review of Systems: gen - no fevers or chills cv - no chest pain pulm - no dyspnea GI - no pain; +constipation Physical Exam Physical Exam: gen - obese, NAD, looks good today neck - no JVD mouth - MMM; no thrush heart - RRR, s1 s2, no murmur lungs - CTA b/l abd - soft NT ND BS+ ext - no edema, pulses 2+ b/l - packing and dressings intact scrotal region Results & Data Results & Data Vital Signs (Past 12 Hours) Vital Signs Temp Pulse Resp BP Pulse Ox O2 Del Method 03/03/24 20:00 36.7 C 67 18 142/81 H 96 Room Air Laboratory Results Laboratory Results - last 24 hr 03/03/24 03/03/24 03/03/24 07:26 07:56 11:29 Sodium 136 Potassium 3.6 Chloride 100 Carbon Dioxide 28 Anion Gap 8 BUN 11 Creatinine 0.69 Est Cr Clr Drug Dosing 199.7 Est GFR ( Amer) 129.2 Est GFR (Non-Af Amer) 111.5 BUN/Creatinine Ratio 15.9 Glucose 219 H POC Glucose 206 H 255 H Calcium 8.5 L Magnesium 1.7 TSH 0.785 03/03/24 03/03/24 16:40 20:43 Sodium Potassium Chloride Carbon Dioxide Anion Gap BUN Creatinine Est Cr Clr Drug Dosing Est GFR ( Amer) Est GFR (Non-Af Amer) BUN/Creatinine Ratio Glucose POC Glucose 163 H 152 H Calcium Magnesium TSH PG Care Time/CCT Total # of Minutes Spent Total Time Spent with Patient: Total time spent is greater than 50% in coordination of care (as documented) at patient's floor/unit and/or counseling patient: Coding Level of Care Code 09153 SUB INP/OBS CARE 235MIN Diagnoses Scrotal abscess N49.2 Type 2 diabetes mellitus without complication, without long-term current use of insulin E11.9 Diabetes mellitus type: type 2 Diabetes mellitus group home insulin use: without group home use Diabetes mellitus complication status: without complication Uncontrolled diabetes mellitus with hyperglycemia E11.65 Dyslipidemia E78.5 Morbid obesity E66.01 (2) Diabetes Diabetes mellitus type: type 2 Diabetes mellitus exterminator termite insulin use: without group home use Diabetes mellitus complication status: without co mplication Qualified Code(s): E11.9 - Type 2 diabetes mellitus without complications
[2024-03-04] MEDS: POLYETHYLENE (MIRALAX) 17 GM PACK PO SCH (08:30)
[2024-03-04] MEDS: SENNA 8.6 MG TAB PO SCH (09:17)
--- NOTE | 2024-03-04 10:58 | Urology Progress Note ---
Date of Service March 04, 2024 Assessment & Plan (1) Scrotal abscess: Plan: Patient POD #2 s/p incision and drainage of scrotal abscess with Dr. Yoder Afebrile and hemodynamically stable He remains on Zosyn and daptomycin Packing was exchanged by wound nurse today Patient's present for wound care teaching Continue daily packing/dressing changes per wound care Continue antibiotics, supportive care and medical management per hospital medicine service will follow Admission and Anticipated Discharge Date Admission Date: March 01, 2024 Subjective Patient seen and examined at bedside present No acute issues overnight Has mild scrotal discomfort Denies nausea, vomiting, fever or chills Wound nurse will be by this morning to exchange packing and teach his Review of Systems Constitutional: as per Subjective / HPI Genitourinary: + as per Subjective / HPI Physical Exam Constitutional: well developed, well nourished and + obese; no acute distress Respiratory: normal respiratory effort; no respiratory distress and no labored breathing Musculoskeletal: Head/Neck/Chest: normocephalic Neurologic: moves all extremities and awake Psychiatric: Orientation: alert and oriented x 3 Genitourinary: Wound edges appear healthy, packing intact, outer gauze has serosanguinous drainage Results & Data Vital Signs (Past 12 Hours) Vital Signs Temp Pulse Resp BP Pulse Ox O2 Del Method 03/04/24 07:03 36.7 C 63 18 123/85 93 Room Air PG Care Time/CCT Total # of Minutes Spent Total Time Spent with Patient: Total time spent is greater than 50% in coordination of care (as documented) at patient's floor/unit and/or counseling patient: Coding Level of Care Code 00262 SUB INP/OBS CARE 1/25MIN Diagnoses Scrotal abscess N49.2
[2024-03-04] MEDS: metFORMIN HCL ER 500 MG TABCR PO SCH (13:34)
--- NOTE | 2024-03-04 20:44 | Hospitalist Progress Note ---
Date of Service March 04, 2024 Assessment & Plan (1) Scrotal abscess: Plan: POD #2 s/p I & D of large scrotal abscess by Dr Yoder, [facility] U[facility] appreciate urology assistance cont daily packing changes patient & received education on this Continue IV antibiotics with Zosyn and daptomycin although no cultures are available Thus, will need to tailor his abx to typical pathogens associated with scrotal abscesses Combination of augmentin with doxy or augmentin with bactrim should suffice (doxy or bactrim for MRSA coverage) Pain control with Tylenol and Oxycodone PRN (2) Diabetes: Plan: HgbA1C 14%. Severely uncontrolled at time of presentation. However, he has made marked improvements to date. DM educator consult appreciated. Added metformin XR 500mg BID w/ meals. Titrated & changed lantus to 25 units daily. He is requiring about 30-35 units of bolus novolog w/ meals thus far. plan at d/c - lantus + metformin, +/- novolog for meals. (3) Uncontrolled diabetes mellitus with hyperglycemia: Plan: as above (4) Dyslipidemia: Plan: Patient currently not on any medication LDL 124 HDL low - <30 Trigs mildly high c/w "metabolic syndrome" would benefit from Rx will discuss with patient (5) Morbid obesity: Plan: BMI 46.7 (6) Lillian rash of groin: Plan: nystatin powder TID Plan DVT proph - lovenox 40mg daily I corresponded again with Marley Singer from the DM education team; appreciate her recs home on Friday if ok with urology, Friday at latest Admission and Anticipated Discharge Date Admission Date: March 01, 2024 Subjective overall feeling much better improved scrotal pain & swelling - although still with swelling near the operative site extending into the proximal right-side of his scrotum near the abdominal wall urology/wound care taught patient & his how to pack the abscess cavity today he is pleased with improvement in his BSGs feels comfortable with care plan (insulin, etc at home) Review of Systems Review of Systems: gen - no fevers or chills cv - no cp pulm - no dyspnea GI - still no BM but no N/V neuro - no dizziness Physical Exam Physical Exam: gen - obese, NAD, looks great neck - no JVD mouth - MMM; no thrush heart - RRR, s1 s2, no murmur lungs - CTA b/l abd - soft NT ND BS+ ext - no edema, pulses 2+ b/l skin - candidal intertrigo lower abdominal wall skin folds - packing and dressings intact scrotal region (packing is quite inferior on the scrotum); induration/swelling extending from near the operative site all the way up the scrotum to wear it meets the lower abdominal wall Results & Data Results & Data Vital Signs (Past 12 Hours) Vital Signs Temp Pulse Resp BP BP Pulse Ox O2 Del Method 03/04/24 19:52 36.5 C 71 16 132/90 96 Room Air 03/04/24 14:39 36.7 C 78 16 109/66 91 Room Air Laboratory Results Laboratory Results - last 24 hr 03/03/24 03/04/24 03/04/24 20:43 07:38 11:58 POC Glucose 152 H 210 H 265 H 03/04/24 03/04/24 16:51 20:25 POC Glucose 106 H 169 H PG Care Time/CCT Total # of Minutes Spent Total Time Spent with Patient: Total time spent is greater than 50% in coordination of care (as documented) at patient's floor/unit and/or counseling patient: Coding Level of Care Code 87637 SUB INP/OBS CARE 2/35MIN Diagnoses Scrotal abscess N49.2 Type 2 diabetes mellitus without complication, without long-term current use of insulin E11.9 Diabetes mellitus complication status: without complication 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
[2024-03-04] MEDS: LANTUS PER UNIT CHARGE SQ SCH (21:10)
[2024-03-04] MEDS: NYSTATIN POWDER 15GM BTL EXT SCH (21:11)
[2024-03-05] MEDS: MoRPHine SULFATE 2 MG/ML CARP IV STA (03:13)
[2024-03-05 08:22] LABS: Hematocrit (blood only) 42.7 % (42.0-52.0); Hemoglobin 14.7 g/dl (14.0-18.0); Mean Corpuscular Hemoglobin 29.6 pg (25.0-34.0); Mean Corpuscular Hgb Conc 34.4 g/dL (32.0-36.0); Mean Corpuscular Volume 86.1 fL (80.0-100.0); Mean Platelet Volume 10.5 fL (9.4-12.4); Platelet Count 296 K/uL (130-400); RDW Coefficient of Variation 12.1 % (11.5-14.5); RDW Standard Deviation 38.2 fL (36.4-46.3); Red Blood Count 4.96 M/uL (4.70-6.10); White Blood Count 8.47 K/ul (4.8-10.8)
[2024-03-05 09:07] LABS: BUN Creatinine Ratio 14.7 (10-20); Creatinine Clr Calc Pharmacy 202.7 ml/min; Est GFR (Non-African American) 112.1 ml/min; Potassium 3.8 mmol/L (3.5-5.1)
--- NOTE | 2024-03-05 09:19 | Urology Progress Note ---
Date of Service March 05, 2024 Assessment & Plan (1) Scrotal abscess: Plan: Patient POD #3 s/p incision and drainage of scrotal abscess with Dr. Yoder Afebrile and hemodynamically stable He remains on Zosyn and daptomycin Packing was exchanged by nurse at 0300 Patient's was taught wound care yesterday and felt comfortable to do at home Continue daily packing/dressing changes Continue antibiotics, supportive care and medical management per hospital [facility] dicine service Patient is okay for discharge from perspective Outpatient follow-ups are in place will sign off, please contact our service with any additional questions or concerns Admission and Anticipated Discharge Date Admission Date: March 01, 2024 Subjective Patient seen and examined at bedside this morning Subjectively doing well He reports his packing came out overnight around 0300 when he went to the bathroom in the toilet Packing was replaced by nursing His was taught wound care yesterday Some mild scrotal discomfort, improving Denies fever or chills Review of Systems Constitutional: as per Subjective / HPI Genitourinary: + as per Subjective / HPI Physical Exam Constitutional: well developed, well nourished and + obese; no acute distress Respiratory: normal respiratory effort; no respiratory distress and no labored breathing Musculoskeletal: Head/Neck/Chest: normocephalic Neurologic: moves all extremities and awake Psychiatric: Orientation: alert and oriented x 3 Results & Data Vital Signs (Past 12 Hours) Vital Signs Temp Pulse Resp BP Pulse Ox O2 Del Method 03/05/24 07:34 36.6 C 72 18 125/81 95 Room Air PG Care Time/CCT Total # of Minutes Spent Total Time Spent with Patient: Total time spent is greater than 50% in coordination of care (as documented) at patient's floor/unit and/or counseling patient: Coding Level of Care Code 82293 SUB INP/OBS CARE /25MIN Diagnoses Scrotal abscess N49.2
--- NOTE | 2024-03-05 12:26 | Discharge Summary ---
Date of Service March 05, 2024 Admission HPI Per Admitting Provider Rakesh Stovall is a pleasant 48yo male with history of GERD, HLP and Pre-DM presenting with pain and areas of firmness/swelling of the scrotum. Patient first noticed pain, swelling and a firm area in the right testicle last week. He was in the shower and squeezed his testicle and was able to express some purulent drainage. The firm areas have persisted. He has some pain behind the scrotum at this time. He denies fevers but did have some chills last week when he first developed symptoms. He denies rigors, pain in the back, flanks, buttock or pelvis. No urinary complaints. No chest pain, cough, SOB, nausea, vomiting, diarrhea. No additional complaints at this time. He was seen in his PCPs office earlier today and was sent to the ER due to concern for hernia. In the ER he is afebrile, HD stable, non-toxic in appearance ER Course: Insulin glargine 7u Insulin Aspart 5u Zosyn 4.5gm Discharge Exam gen - obese, NAD, looks great neck - no JVD mouth - MMM; no thrush heart - RRR, s1 s2, no murmur lungs - CTA b/l abd - soft NT ND BS+ ext - no edema, pulses 2+ b/l skin - candidal intertrigo lower abdominal wall skin folds - packing and dressings intact scrotal region (packing is quite inferior on the scrotum); induration/swelling extending from near the operative site all the way up the scrotum to wear it meets the lower abdominal wall Discharge Data Allergies Allergy/AdvReac Type Severity Reaction Status Date / Time No Known Allergies Allergy Verified 03/01/24 20:57 Consultations 03/01/24 22:12 Consult Urology Stat 03/02/24 01:22 Consult Urology Routine Procedures Performed Operation Date: 03/02/24 08:20 Actual Procedures p Right Incision and Drainage Scrotal Abscess(Not Applicable) - Jono Yoder MD Ordered Studies 03/01/24 17:10 US scrotum/testicle Stat 03/01/24 20:30 CT Abd and Pelvis [CT abd pelvis IV con only] Stat Hospital Course (1) Scrotal abscess: POD #2 s/p I & D of large scrotal abscess by Dr Yoder, [facility] U[facility] appreciate urology assistance cont daily packing changes patient & received education on this Continue IV antibiotics with Zosyn and daptomycin although no cultures are available Thus, will need to tailor his abx to typical pathogens associated with scrotal abscesses Combination of augmentin with doxy or augmentin with bactrim should suffice (doxy or bactrim for MRSA coverage) Pain control with Tylenol and Oxycodone PRN (2) Diabetes: HgbA1C 14%. Severely uncontrolled at time of presentation. However, he has made marked improvements to date. DM educator consult appreciated. Added metformin XR 500mg BID w/ meals. Titrated & changed lantus to 25 units daily. He is requiring about 30-35 units of bolus novolog w/ meals thus far. plan at d/c - lantus + metformin, +/- novolog for meals. (3) Uncontrolled diabetes mellitus with hyperglycemia: as above (4) Dyslipidemia: Patient currently not on any medication LDL 124 HDL low - <30 Trigs mildly high c/w "metabolic syndrome" would benefit from Rx will discuss with patient (5) Morbid obesity: BMI 46.7 (6) Lillian rash of groin: nystatin powder TID Plan DVT proph - lovenox 40mg daily I corresponded again with Marley Singer from the DM education team; appreciate her recs home on Friday if ok with urology, Friday at latest Discharge Plan Discharge Items Patient Disposition: Home - Self-Care Reason For Visit: SCROTAL ABSCESS Discharge Diagnosis: 1. scrotal abscess with incision/drainage procedure by Dr Jono Yoder, [facility] 2. newly diagnosed type 2 diabetes mellitus; hemoglobin a1c 14.2% 3. yeast rash of lower abdominal wall Follow-up/Referrals: Jono Yoder MD [Physician] - 03/31/24 4:00 pm Alec Go DO [Primary Care Provider] - 03/15/24 3:00 pm (5-7 days ) [facility],Nurse [FAKE FOR SCHEDULES] - 03/09/24 11:00 am Stand-Alone Forms: My [facility], Smoking Cessation Medications and DC Order Prescriptions: New nystatin [Nystop] 100,000 unit/gram Powder 1 applic EXT TID Qty: 30 1RF Rx Instructions: apply to lower abdominal wall rash x 7-10 days. oxycodone 5 mg Tablet 5 mg PO Q6H PRN (Reason: pain) Qty: 20 0RF metformin 500 mg Tablet Extended Release 24 Hr 500 mg PO BIDM Qty: 60 2RF insulin glargine-yfgn [Semglee(insulin glarg-yfgn)Pen] 100 unit/mL (3 mL) insulin pen 35 unit subcut DAILY Qty: 15 1RF (DME) pen needle, diabetic [Comfort EZ Pen [place]] 32 gauge x 5/32" needle See Rx Instructions .Route Qty: 100 2RF Rx Instructions: use with semglee & novolog pens 4 times daily. (DME) OneTouch Verio test strips Strip See Rx Instructions .Route Qty: 100 2RF Rx Instructions: check blood sugars 4 times daily (before meals & at bedtime) (DME) lancets [OneTouch Delica Plus Lancet] 33 gauge misc See Rx Instructions .Route Qty: 100 2RF Rx Instructions: Check blood sugars 4 times daily. insulin aspart U-100 [Novolog FlexPen U-100 Insulin] 100 unit/mL (3 mL) insulin pen 12 unit subcut .TID with meals Qty: 15 2RF amoxicillin-pot clavulanate 875-125 mg tablet 1 tab PO BID Qty: 20 0RF sulfamethoxazole-trimethoprim [Bactrim DS] 800-160 mg tablet 1 tab PO BID Qty: 20 0RF Continued naproxen sodium [Aleve] 220 mg Tablet 440 mg PO DIRECTED PRN (Reason: Pain) Krames/Other Patient Handouts: Hypoglycemia (Low Blood Sugar), Changing Dressing Dc, Managing Diabetes: The A1C Test, Wound Dressing Change Steps, Hypoglycemia Tx Steps Admission Data Admit Date/Time: 03/01/24 22:44 Attending Provider: George Cornell Admit Provider: Emily Rincon Primary Care Provider: Alec Go Other Providers: Milton Worley; [facility]; [facility] Coding Diagnoses Scrotal abscess N49.2 Type 2 diabetes mellitus without complication, without long-term current use of insulin E11.9 Diabetes mellitus type: type 2 Diabetes mellitus assisted insulin use: without adjunct faculty for medical terminology use Diabetes mellitus complication status: without complication Uncontrolled diabetes mellitus with hyperglycemia E11.65 Dyslipidemia E78.5 Morbid obesity E66.01 Lillian rash of groin B37.89
--- NOTE | 2024-03-05 21:47 | Electrocardiogram Report ---
Test Reason : Blood Pressure : / mmHG Vent. Rate : 070 BPM Atrial Rate : 070 BPM P-R Int : 180 ms QRS Dur : 104 ms QT Int : 422 ms P-R-T Axes : 034 042 041 degrees QTc Int : 455 ms Sinus rhythm with occasional Premature ventricular complexes Inferior infarct (cited on or before 31-JUL-2021) Abnormal ECG When compared with ECG of 31-JUL-2021 08:36, Premature ventricular complexes are now Present Confirmed by Geoffrey Gomez ([id number]) on 03/05/2024 9:46:58 PM Referred By: Shantel Carrero Confirmed By:Geoffrey Gomez
== END 2024-03-05 15:52 | disposition home health service (06) | DRG 717 ==
LOC: ED 16:49 → 3W 22:44 → SUATTDRO 22:44 → 3W 03-02 00:59

== ENCOUNTER 2025-05-17 16:52 | Inpatient (IN) ==
[2025-05-17] MEDS: SODIUM CHLORIDE 0.9% 1,000 ML IV SCH ×2 (17:30→18:45)
[2025-05-17 17:34] LABS: Hematocrit (blood only) 47.5 % (42.0-52.0); Hemoglobin 16.1 g/dl (14.0-18.0); Immature Granulocytes # (auto) 0.05 K/uL (0.01-0.20); Immature Granulocytes % (auto) 0.4 %; Mean Corpuscular Hemoglobin 28.9 pg (25.0-34.0); Mean Corpuscular Volume 85.3 fL (80.0-100.0); Platelet Count 318 K/uL (130-400); RDW Standard Deviation 42.2 fL (36.4-46.3); Red Blood Count 5.57 M/uL (4.70-6.10); White Blood Count 14.15 K/ul (4.8-10.8)
--- NOTE | 2025-05-17 17:42 | XRay Report ---
Clinical History: Sepsis Technique: A frontal view of the chest was obtained Comparison is made to the prior examination dated 07/31/2021 Findings: There are no definite pulmonary infiltrates. The heart size is within normal limits. No pleural effusion or pneumothorax is seen. There is no definite pulmonary nodule. No fracture is noted. No foreign body is seen Impression: No active disease Electronically signed by Sukhi Moreno 05-17-2025 5:41 PM
[2025-05-17 17:49] LABS: Base Excess VBG -3.1 mEq/L; HCO3 VBG 24 mmol/L; Oxygen Saturation VBG < 60.0 %; PCO2 VBG 50 mmHg (38-50); PO2 VBG 32 mmHg; pH VBG 7.29 (7.36-7.41)
[2025-05-17] MEDS: PIPERACILLIN/TAZOBACTAM 4.5 GM/100 ML BAG IV ONE (17:49)
[2025-05-17 18:02] LABS: Alanine Aminotransferase 18.0 U/L (7-52); Alkaline Phosphatase 96.0 U/L (34-104); Anion Gap 13.0 (3-11); Bilirubin,Total 0.9 mg/dl (0.2-1.0); Blood Urea Nitrogen 23.0 mg/dl (6-23); Calcium 9.8 mg/dl (8.6-10.3); Carbon Dioxide 26.0 mmol/L (21-32); Chloride 99.0 mmol/L (98-107); Creatinine Clr Calc Pharmacy 106.6 ml/min; Glucose 163.0 mg/dl (70-99(Fasting)); Magnesium 1.7 mg/dl (1.7-2.4); Potassium 4.2 mmol/L (3.5-5.1); Sodium 138.0 mmol/L (136-145); Total Protein 7.6 gm/dl (6.0-8.3)
[2025-05-17] MEDS: OPTIRAY 320 125ml IV ONE (18:49)
--- NOTE | 2025-05-17 19:28 | CT Scan Report ---
CT RIGHT FEMUR WITH CONTRAST: HISTORY: TECHNIQUE: CT of the right femur was obtained with intravenous contrast. Coronal and sagittal reformats were created. IV CONTRAST: 100 mL of OMNIPAQUE 300 COMPARISON: None FINDINGS: In the subcutaneous tissues of the medial right thigh there are fungal changes with edema and overlying skin thickening. Within the subcutaneous tissues are scattered nodular intermediate density structures measuring up to 5.5 cm (for example series 500 jakob image 25). No rim-enhancing, organized fluid collection is identified. No acute fractures identified. IMPRESSION: Soft tissue inflammation as described above in the subcutaneous tissues of the medial thigh. Overall findings are consistent with cellulitis. No rim-enhancing, organized fluid collection is identified to suggest a well-formed abscess at this time. Intermediate density nodular structures in this area of inflammation are nonspecific however could represent developing abscesses. Also on consideration may be hematomas. Electronically signed by Fredo Angulo 05-17-2025 7:27 PM
--- NOTE | 2025-05-17 19:35 | Emergency Department Note ---
Impression & Plan Cellulitis of leg, right, Diabetes, Morbid obesity, Hypotension, Dehydration ED Provider Note ED Provider Note NAME: SONI GONGORA Jr AGE:49 SEX: Male : 1975 ARRIVES VIA: private vehicle INFORMANT: Patient ED PROVIDER(s): Anabela Alcantar DO CHIEF COMPLAINT: right leg infection, weakness, vomiting HPI: This is a 49-year-old male who presents to the emergency room due to concern for worsening right leg infection, vomiting, and fatigue. He states 2 weeks ago he had a small "pimple" to the inner upper right thigh and he tried to "pop" it. He states since then it slowly felt more enlarged, warm, redder and became more painful. He states this has been worse and spreading predominantly over the last 4 days with accompanying fevers/chills, nausea and vomiting, and fatigue. He denies diarrhea, joint pain, change in urine or stools. No significantly elevated blood sugar despite his hx of diabetes. PAST MEDICAL HISTORY:See Below PAST SURGICAL HISTORY:See Below FAMILY HISTORY:See Below SOCIAL HISTORY:See Below HOME MEDICATIONS:See Below ALLERGIES:See Below VITALS:See Below PHYSICAL EXAMINATION: GENERAL: alert, well appearing, well nourished, no distress, non-toxic EYE EXAM: normal conjunctiva, PERRL and EOM's grossly intact OROPHARYNX: no exudate, no erythema, lips, buccal mucosa, and tongue normal and mucous membranes are moist NECK: supple, no nuchal rigidity, no adenopathy, non-tender LUNGS: Clear to auscultation. Normal chest wall mechanics, no w/r/r HEART: no murmurs, S1 normal and S2 normal ABDOMEN: abdomen soft, non-tender, normo-active bowel sounds, no masses, no rebound or guarding. BACK: Back is symmetrical on inspection and there is no deformity, no midline tenderness, no CVA tenderness. SKIN: no rashes, petechiae, orbruising UPPER EXTREMITIES: upper extremities are grossly normal. FROM, nml pulses b/l. LOWER EXTREMITIES: No pitting edema. FROM, nml pulses b/l. Large area of erythema to the medial proximal RLE with 2 areas of increased erythema and induration, no discharge or drainage, area outlined with a sterile marking pen, no extension into the genitalia NEURO EXAM: Normal sensorium, cranial nerves II-XII grossly intact, normal speech, no facial droop,nogross weakness of arms, no gross weakness of legs. Gross sensation intact. No ataxia. Vital Signs: reviewed and remarkable Differential Diagnosis: cellulitis, abscess, MRSA infection, necrotizing fasciitis, dermatitis, drug eruption, DKA, as well as others were entertained. MEDICAL DECISION MAKING: This is a 49 presents emergency department due to concern for worsening infection in the proximal right lower extremity with accompanying systemic symptoms. Patient noted to be hypotensive and tachycardic on arrival. No fever noted. Labs including cultures were drawn and sent and an IV was established, EKG and cxr were performed at bedside and interpreted by me and patient monitored on telemetry. Patient started on IV fluids immediately with improvement of his blood pressure and heart rate. Patient declined any need for pain medication. Patient noted to have a leukocytosis and initial elevated lactic acid. Patient's blood pressure continued to improve into the second liter of IV fluids. He was sent for CT of the right femur in order to capture the involved area. There did not appear to be any extension into the genital region, no subcutaneous emphysema. I do not suspect nec fasc or Russ's gangrene. Patient was given IV antibiotics after discussion with ED pharmacist, Theodore. Repeat lactic acid was improved. Patient did receive greater than 30 mL/KG based on ideal body weight. Due to concern for increased risk of worsening infection given diabetic status and body habitus, case discussed with the hospitalist team for additional evaluation and management. Patient continued to have stable and improved heart rate and blood pressure following volume repletion. I suspect some of his initial vital sign abnormalities were related to decreased oral intake and vomiting recently with likely dehydration. Consultation(s): 1950: Discussed with Dr. Rincon, [place] hospitalist team, for additional evaluation and mgmt. ER Treatment Provided: See below Diagnostics Interpreted By Me: -ECG: Normal sinus at 86, normal axis, normal intervals, PVC noted, no acute ST/T wave changes -Cardiac Monitoring: An order was placed for continuous cardiac monitoring. The monitor shows a rate of 80 with normal sinus rhythm. -Laboratory studies: As stated above and show below. -Imaging studies: ct RLE/femur: no abscess, no subQ emphysema Triage Nursing Note Reviewed Prior/Outside Records Reviewed Past Med/Surg History Problem List (Updated 05/17/25 @ 19:51 by Anabela Alcantar DO) Dehydration (Acute) Hypotension (Acute) Cellulitis of leg, right (Acute) HTN (hypertension) PVCs (premature ventricular contractions) Lillian rash of groin Morbid obesity (Acute) Scrotal abscess (Acute) Uncontrolled diabetes mellitus with hyperglycemia Diabetes (Acute) Anxiety Morbid obesity with BMI of 50.0-59.9, adult Atypical chest pain (Acute) BPH (benign prostatic hyperplasia) (Acute) Elevated blood pressure reading Medical History (Updated 05/17/25 @ 19:51 by Anabela Alcantar DO) Dyslipidemia Pneumonia due to COVID-19 virus Acute hypoxemic respiratory failure Hyponatremia Hypoxia Depression GERD (gastroesophageal reflux disease) Left sided chest pain Surgical History Status post medial meniscus repair History of tonsillectomy Family History Other Heart disease Social History Smoking Status: Former smoker Tobacco Type: Cigarettes Age Started Using Tobacco: 22; Age Quit Using Tobacco: 24; packs per day: 1; Second Hand Exposure: No; Do You Dip or Chew Tobacco: No; Hx Alcohol Use: Yes Alcohol type: hard liquor Hx Substance Use: No Preferred Language: Portuguese Communication Ability: Effective Coconut Boiler Required: No Beliefs That Will Affect Care: None Current Living Situation: Family current occupational status: employed Feels Safe at Home: Yes Safety Concerns: Feels Safe At This Time Childhood Exposure to Second-Hand Smoke: Yes Diet: regular caffeine: Yes Dental Care, Regularly: No Physical Activity Frequency: 5-6 Times per Week Seatbelt Use: always Sunscreen Use: No Assistive Devices: None Allergies Allergies Allergy/AdvReac Type Severity Reaction Status Date / Time No Known Allergies Allergy Verified 05/17/25 19:32 Home Meds Home Medications Medication Instructions Recorded Confirmed naproxen sodium 220 mg tablet 440 mg PO DIRECTED PRN Pain 03/01/24 05/17/25 (Aleve) semaglutide 0.25 mg or 0.5 mg (2 0.5 mg subcut WK 05/17/25 05/17/25 mg/3 mL) subcutaneous pen injector (Ozempic) Previous Rx's Medication Instructions Recorded lancets 33 gauge (OneTouch Delica #100 ea 03/05/24 Plus Lancet) blood sugar diagnostic (OneTouch #100 ea 05/24/24 Verio test strips) blood-glucose,it program engagement director,cont #1 ea 05/24/24 (FreeStyle Tim 3 [place]) insulin aspart U-100 100 unit/mL See Rx Instructions subcut .TID 05/24/24 (3 mL) subcutaneous pen (Novolog with meals #15 mL FlexPen U-100 Insulin aspart) insulin glargine-yfgn 100 unit/mL 42 unit (0.42 mL) subcut DAILY #15 05/24/24 (3 mL) subcutaneous pen (Semglee mL (insulin glargine-yfgn) Pen) pen needle, diabetic 32 gauge x #200 ea 05/24/2432" (Comfort EZ Pen [place]) rosuvastatin 20 mg tablet 20 mg PO DAILY #90 tabs 06/15/24 valsartan 80 mg tablet 80 mg PO DAILY #90 tabs 12/16/24 acetone (urine) test (Ketostix #25 ea 12/24/24 strips) blood-glucose sensor (FreeStyle #2 ea 12/24/24 Tim 3 Sensor device) metformin 500 mg tablet,extended 1,000 mg (2 x 500 mg) PO BIDM #360 05/17/25 release 24 hr tabs Results & Data (ED) Vital Signs Vital Signs - 24 hr 05/17/25 16:55 05/17/25 17:09 05/17/25 17:30 Temperature 36.9 C Temperature Source Temporal Artery Scan Pulse Rate 109 H 109 H Pulse Rate [Apical] 84 Pulse Rhythm [Apical] Respiratory Rate 18 19 Respiratory Effort / Characteristics Non-Labored Spontaneous Non-Labored Spontaneous Respiratory Depth Normal Normal Respiratory Pattern Regular Blood Pressure 89/62 L Blood Pressure [Left Arm] 100/66 Blood Pressure Mean 71 Blood Pressure Mean [Left Arm] 77 Blood Pressure Position [Left Arm] Lying Pulse Oximetry 93 94 Oxygen Delivery Method Room Air Room Air Sepsis Recent Fever Within 48 Hours No Sepsis New/Unexplained Change in Mental Status N/A Sepsis Action Taken by Nursing Physician Notified 05/17/25 18:38 05/17/25 20:00 Temperature Temperature Source Pulse Rate Pulse Rate [Apical] 84 84 Pulse Rhythm [Apical] Regular Respiratory Rate 18 22 Respiratory Effort / Characteristics Non-Labored Spontaneous Non-Labored Spontaneous Respiratory Depth Normal Normal Respiratory Pattern Regular Blood Pressure Blood Pressure [Left Arm] 122/67 122/67 Blood Pressure Mean Blood Pressure Mean [Left Arm] 85 85 Blood Pressure Position [Left Arm] Sitting Lying Pulse Oximetry 97 97 Oxygen Delivery Method Room Air Room Air Sepsis Recent Fever Within 48 Hours Sepsis New/Unexplained Change in Mental Status Sepsis Action Taken by Nursing Laboratory Data 05/17/25 17:05 05/17/25 17:05 Lab Results 05/17/25 05/17/25 05/17/25 Range/Units 17:05 17:42 17:56 WBC 14.15 H (4.8-10.8) K/ul RBC 5.57 (4.70-6.10) M/uL Hgb 16.1 (14.0-18.0) g/dl Hct 47.5 (42.0-52.0) % MCV 85.3 (80.0-100.0) fL MCH 28.9 (25.0-34.0) pg MCHC 33.9 (32.0-36.0) g/dL RDW Std Deviation 42.2 (36.4-46.3) fL RDW Coeff of Roxana 13.5 (11.5-14.5) % Plt Count 318 (130-400) K/uL MPV 11.0 (9.4-12.4) fL Immature Gran % (Auto) 0.4 % Neut % (Auto) 72.8 % Lymph % (Auto) 14.9 % [place] % (Auto) 11.0 % Eos % (Auto) 0.6 % Baso % (Auto) 0.3 % Neut # (Auto) 10.31 H (1.40-6.50) K/uL Lymph # (Auto) 2.11 (1.20-3.40) K/uL [place] # (Auto) 1.56 H (0.11-0.59) K/uL Eos # (Auto) 0.08 (0.00-0.50) K/uL Baso # (Auto) 0.04 (0.00-0.20) K/uL Immature Gran # (Auto) 0.05 (0.01-0.20) K/uL VBG pH 7.29 L (7.36-7.41) VBG pCO2 50 (38-50) mmHg VBG pO2 32 mmHg VBG HCO3 24 mmol/L VBG O2 Saturation < 60.0 % VBG Base Excess -3.1 mEq/L Sodium 138 (136-145) mmol/L Potassium 4.2 (3.5-5.1) mmol/L Chloride 99 (98-107) mmol/L Carbon Dioxide 26 (21-32) mmol/L Anion Gap 13 H (3-11) BUN 23 (6-23) mg/dl Creatinine 1.35 (0.6-1.4) mg/dl Est Cr Clr Drug Dosing 106.6 ml/min eGFR 63.96 BUN/Creatinine Ratio 17.0 (10-20) Glucose 163 H (70-99(Fasting)) mg/dl Lactate 2.7 H* (0.4-2.0) mmol/L Calcium 9.8 (8.6-10.3) mg/dl Magnesium 1.7 (1.7-2.4) mg/dl Total Bilirubin 0.9 (0.2-1.0) mg/dl Direct Bilirubin 0.2 (0-0.2) mg/dl AST 14 (13-39) U/L ALT 18 (7-52) U/L Alkaline Phosphatase 96 (34-104) U/L Troponin I High Sens 13.8 (0-20) pg/ml Total Protein 7.6 (6.0-8.3) gm/dl Albumin 3.9 (3.4-5.0) gm/dl Procalcitonin 0.14 (0-0.5) ng/ml Nasal Screen MRSA (PCR) Negative (Negative) 05/17/25 Range/Units 19:15 WBC (4.8-10.8) K/ul RBC (4.70-6.10) M/uL Hgb (14.0-18.0) g/dl Hct (42.0-52.0) % MCV (80.0-100.0) fL MCH (25.0-34.0) pg MCHC (32.0-36.0) g/dL RDW Std Deviation (36.4-46.3) fL RDW Coeff of Roxana (11.5-14.5) % Plt Count (130-400) K/uL MPV (9.4-12.4) fL Immature Gran % (Auto) % Neut % (Auto) % Lymph % (Auto) % [place] % (Auto) % Eos % (Auto) % Baso % (Auto) % Neut # (Auto) (1.40-6.50) K/uL Lymph # (Auto) (1.20-3.40) K/uL [place] # (Auto) (0.11-0.59) K/uL Eos # (Auto) (0.00-0.50) K/uL Baso # (Auto) (0.00-0.20) K/uL Immature Gran # (Auto) (0.01-0.20) K/uL VBG pH (7.36-7.41) VBG pCO2 (38-50) mmHg VBG pO2 mmHg VBG HCO3 mmol/L VBG O2 Saturation % VBG Base Excess mEq/L Sodium (136-145) mmol/L Potassium (3.5-5.1) mmol/L Chloride (98-107) mmol/L Carbon Dioxide (21-32) mmol/L Anion Gap (3-11) BUN (6-23) mg/dl Creatinine (0.6-1.4) mg/dl Est Cr Clr Drug Dosing ml/min eGFR BUN/Creatinine Ratio (10-20) Glucose (70-99(Fasting)) mg/dl Lactate 1.1 (0.4-2.0) mmol/L Calcium (8.6-10.3) mg/dl Magnesium (1.7-2.4) mg/dl Total Bilirubin (0.2-1.0) mg/dl Direct Bilirubin (0-0.2) mg/dl AST (13-39) U/L ALT (7-52) U/L Alkaline Phosphatase (34-104) U/L Troponin I High Sens (0-20) pg/ml Total Protein (6.0-8.3) gm/dl Albumin (3.4-5.0) gm/dl Procalcitonin (0-0.5) ng/ml Nasal Screen MRSA (PCR) (Negative) Administered Medications Piperacillin Sod/Tazobactam Sod (Zosyn) 4.5 gm in 100 mls @ 25 mls/hr IV Q8H [facility]; Protocol Stop: 05/25/25 00:00 Last Admin: 05/17/25 23:51 Dose: 25 mls/hr Documented By: EDUARDO Lactated Ringer's (Lr) 1,000 mls @ 125 mls/hr IV .Q8H [facility] Stop: 05/18/25 05:06 Last Admin: 05/17/25 21:50 Dose: 125 mls/hr Documented By: man Insulin Aspart (Insulin Aspart Per Unit Charge) 0 units SC ACHS DIGNA Stop: 06/16/25 21:06 Last Admin: 05/17/25 21:44 Dose: Not Given Documented By: man Co-signed By: EDUARDO Insulin Glargine (Lantus Per Unit Charge) 12 units SQ BID DIGNA Stop: 06/16/25 21:06 Last Admin: 05/17/25 22:00 Dose: 12 units Documented By: man Co-signed By: EDUARDO Ondansetron HCl (Ondansetron Inj 2 Mg/Ml 2 Ml Vial) 4 mg IV Q6H PRN PRN Reason: Nausea And Vomiting Stop: 06/16/25 21:06 Last Admin: 05/17/25 21:55 Dose: 4 mg Documented By: man Discontinued Medications Sodium Chloride (Nss) 1,000 mls @ 999 mls/hr IV .Q1H1M DIGNA Stop: 05/17/25 19:30 Last Infusion: 05/17/25 18:34 Dose: Infused Documented By: Admin: 05/17/25 17:48 Dose: 999 mls/hr Documented By: Infusion: 05/17/25 17:48 Dose: Infused Documented By: Admin: 05/17/25 17:30 Dose: 999 mls/hr Documented By: ADRIANA Piperacillin Sod/Tazobactam Sod (Zosyn) 4.5 gm in 100 mls @ 200 mls/hr IV NOW ONE; Protocol Stop: 05/17/25 17:50 Last Infusion: 05/17/25 18:34 Dose: Infused Documented By: Admin: 05/17/25 17:49 Dose: 200 mls/hr Documented By: CC Sodium Chloride (Nss) 1,000 mls @ 250 mls/hr IV .Q4H DIGNA Stop: 05/20/25 18:29 Last Infusion: 05/17/25 20:50 Dose: Infused Documented By: Admin: 05/17/25 18:45 Dose: 250 mls/hr Documented By: CC Ioversol (Optiray 320 125ml) 118 ml IV ONCE ONE Stop: 05/17/25 18:49 Last Admin: 05/17/25 18:49 Dose: 118 ml Documented By: LETA Imaging Data Radiologist's Impression: Chest X-Ray 05/17/25 17:22 Clinical History: Sepsis Technique: A frontal view of the chest was obtained Comparison is made to the prior examination dated 07/31/2021 Findings: There are no definite pulmonary infiltrates. The heart size is within normal limits. No pleural effusion or pneumothorax is seen. There is no definite pulmonary nodule. No fracture is noted. No foreign body is seen Impression: No active disease Electronically signed by Sukhi Moreno 05-17-2025 5:[address] 05/17/25 17:50 CT RIGHT FEMUR WITH CONTRAST: HISTORY: TECHNIQUE: CT of the right femur was obtained with intravenous contrast. Coronal and sagittal reformats were created. IV CONTRAST: 100 mL of OMNIPAQUE 300 COMPARISON: None FINDINGS: In the subcutaneous tissues of the medial right thigh there are fungal changes with edema and overlying skin thickening. Within the subcutaneous tissues are scattered nodular intermediate density structures measuring up to 5.5 cm (for example series 500 jakob image 25). No rim-enhancing, organized fluid collection is identified. No acute fractures identified. IMPRESSION: Soft tissue inflammation as described above in the subcutaneous tissues of the medial thigh. Overall findings are consistent with cellulitis. No rim-enhancing, organized fluid collection is identified to suggest a well-formed abscess at this time. Intermediate density nodular structures in this area of inflammation are nonspecific however could represent developing abscesses. Also on consideration may be hematomas. Electronically signed by Fredo Angulo 05-17-2025 7:27 PM Discharge Plan Visit Data Chief Complaint: Leg Injury/Pain Stated Complaint: LUMP ON INNER THIGH ED Provider: Anabela Alcantar Discharge Problem: Cellulitis of leg, right, Diabetes, Morbid obesity, Hypotension, Dehydration Patient Disposition: Admitted As Inpatient Condition: Fair Discharge Instructions Interventions: ED Discharge Assessment Last Done: 05/17/25 20:53
--- NOTE | 2025-05-17 20:09 | History & Physical Report ---
Date of Service May 17, 2025 Assessment & Plan (1) Cellulitis of leg, right: (2) HTN (hypertension): (3) Diabetes: Plan 49yo male with history of DM, HTN presenting with progressive warmth, redness an tenderness of right thigh which started after patient popped a pimple. Complaining of systemic symptoms of infection including fever, chills, weakness, fatigue as well as nausea, vomiting and PO intolerance. #Cellulitis of right leg - patient afebrile, HD stable. Leukocytosis with WBC=14.15. MRSA nares is NEGATIVE. Procalcitonin WNL at 0.14. Lactate initially elevated at 2.7 which has normalized to 1.1 following IVF. No evidence of progressive infection. Some concern for possible early abscesses noted on imaging. -Observation to medical -LR at 125mL/hr x 1L ordered -Follow cultures sent from the ER -Jose area of redness daily to monitor for improvement -Continue Zosyn -Tylenol and Zofran PRN -If patient fails to improve would consider re-imaging to assess for formation of abscesses #Diabetes - patient with mildly elevated blood sugar today. Reports his sugars have been high since having the infection. Poor oral intake and PO intolerance over the last several days. Last [id number]=9.7 on 12/16/24 -Lantus 12u BID -ISS -Goal blood sugar 110 - 160 -Hold Metformin and Ozempic #Hypertension -Continue Valsartan 80mg po daily -Monitor #Hyperlipidemia - chronic. stable -Continue Crestor 20mg po daily History of Present Illness Chief Complaint: RUE cellulitis Primary Care Provider: JOSE CARLOS Boss Rakesh Stovall is a pleasant 49yo male with history of Diabetes, HLP, GERD presenting with right thigh cellulitis. Approximately 1.5 - 2 weeks ago patient had a pimple on his right inner thigh. He tried to pop it and since has had progression of redness, warmth, tenderness of the right thigh. He has developed fever and chills as well as generalized weakness, fatigue, nausea, vomiting and oral intake. He reports his blood sugar being mildly elevated over the last 2 weeks. No additional complaints at this time. In the ER he is afebrile, HD stable ER Course: Zosyn NSS Allergies Allergy/AdvReac Type Severity Reaction Status Date / Time No Known Allergies Allergy Verified 07/22/25 19:32 Home Medications Medication Instructions Recorded Confirmed Type naproxen sodium 220 mg tablet 440 mg PO DIRECTED PRN Pain 03/01/24 05/17/25 History (Aleve) lancets 33 gauge (OneTouch Delica #100 ea 03/05/24 12/24/24 Rx Plus Lancet) blood sugar diagnostic (OneTouch #100 ea 05/24/24 12/24/24 Rx Verio test strips) blood-glucose,cnc mill programmer,cont #1 ea 05/24/24 12/24/24 Rx (FreeStyle Tim 3 [place]) insulin aspart U-100 100 unit/mL See Rx Instructions subcut .TID 05/24/24 05/17/25 Rx (3 mL) subcutaneous pen (Novolog with meals #15 mL FlexPen U-100 Insulin aspart) insulin glargine-yfgn 100 unit/mL 42 unit (0.42 mL) subcut DAILY #15 05/24/24 05/17/25 Rx (3 mL) subcutaneous pen (Semglee mL (insulin glargine-yfgn) Pen) pen needle, diabetic 32 gauge x #200 ea 05/24/24 12/24/24 Rx 5/32" (Comfort EZ Pen [place]) rosuvastatin 20 mg tablet 20 mg PO DAILY #90 tabs 06/15/24 05/17/25 Rx valsartan 80 mg tablet 80 mg PO DAILY #90 tabs 12/16/24 05/17/25 Rx acetone (urine) test (Ketostix #25 ea 12/24/24 12/24/24 Rx strips) blood-glucose sensor (FreeStyle #2 ea 12/24/24 12/24/24 Rx Tim 3 Sensor device) metformin 500 mg tablet,extended 1,000 mg (2 x 500 mg) PO BIDM #360 05/17/25 05/17/25 Rx release 24 hr tabs semaglutide 0.25 mg or 0.5 mg (2 0.5 mg subcut WK 05/17/25 05/17/25 History mg/3 mL) subcutaneous pen injector (Ozempic) Past Med/Surg History Problem List Dehydration (Acute) Hypotension (Acute) Cellulitis of leg, right (Acute) HTN (hypertension) PVCs (premature ventricular contractions) Lillian rash of groin Morbid obesity (Acute) Scrotal abscess (Acute) Uncontrolled diabetes mellitus with hyperglycemia Diabetes (Acute) Anxiety Morbid obesity with BMI of 50.0-59.9, adult Atypical chest pain (Acute) BPH (benign prostatic hyperplasia) (Acute) Elevated blood pressure reading Medical History Dyslipidemia Pneumonia due to COVID-19 virus Acute hypoxemic respiratory failure Hyponatremia Hypoxia Depression GERD (gastroesophageal reflux disease) Left sided chest pain Surgical History Status post medial meniscus repair History of tonsillectomy Family History Other Heart disease Social History Smoking Status: Former smoker Tobacco Type: Cigarettes Age Started Using Tobacco: 22; Age Quit Using Tobacco: 24; packs per day: 1; Second Hand Exposure: No; Do You Dip or Chew Tobacco: No; Hx Alcohol Use: Yes Alcohol type: hard liquor Hx Substance Use: No Preferred Language: Palestinian Communication Ability: Effective Theater Projectionist Required: No Beliefs That Will Affect Care: None Current Living Situation: Family current occupational status: employed Feels Safe at Home: Yes Safety Concerns: Feels Safe At This Time Childhood Exposure to Second-Hand Smoke: Yes Diet: regular caffeine: Yes Dental Care, Regularly: No Physical Activity Frequency: 5-6 Times per Week Seatbelt Use: always Sunscreen Use: No Assistive Devices: None Review of Systems Review of Systems: All systems reviewed & are unremarkable except as noted in HPI & below Physical Exam Physical Exam: General: patient resting comfortably, NAD, non-toxic in appearance, AA&O x 4 HEENT: NC/AT, PERRL, EOMI, anicteric sclera, conjunctiva without injection, external ear normal to inspection and nontender, nares patent, moist mucus membranes, dentition intact, no oropharyngeal lesions, neck supple, trachea midline, no LAD, no thyromegaly, no JVD Heart: +S1/S2, regular, no m/r/g Lungs: equal air entry bilaterally, no rales/rhonchi/wheezes Abd: +BS, soft, NT/ND, no masses/organomegaly/ascites Ext: warm, 2+ pulses in UE/LE bilaterally, no clubbing/cyanosis or edema Warmth, redness and tenderness of mid-right thigh, area with induration. No pain or tenderness in the abdomen, groin, perineum. Neuro: nonfocal, patient AA&O x 4, speech intact, no facial droop, moving all extremities on command with equal strength 5/5 Results & Data Results & Data Vital Signs (Past 12 Hours) Vital Signs Temp Pulse Pulse Resp BP BP Pulse Ox 05/17/25 18:38 84 18 122/67 97 05/17/25 17:30 84 19 100/66 94 05/17/25 17:09 109 H 05/17/25 16:55 36.9 C 109 H 18 89/62 L 93 O2 Del Method 05/17/25 18:38 Room Air 05/17/25 17:30 Room Air 05/17/25 17:09 05/17/25 16:55 Room Air Laboratory Results Laboratory Results WBC 14.15 K/ul (4.8-10.8) H 05/17/25 17:05 RBC 5.57 M/uL (4.70-6.10) 05/17/25 17:05 Hgb 16.1 g/dl (14.0-18.0) 05/17/25 17:05 Hct 47.5 % (42.0-52.0) 05/17/25 17:05 MCV 85.3 fL (80.0-100.0) 05/17/25 17:05 MCH 28.9 pg (25.0-34.0) 05/17/25 17:05 MCHC 33.9 g/dL (32.0-36.0) 05/17/25 17:05 RDW Std Deviation 42.2 fL (36.4-46.3) 05/17/25 17:05 RDW Coeff of Roxana 13.5 % (11.5-14.5) 05/17/25 17:05 Plt Count 318 K/uL (130-400) 05/17/25 17:05 MPV 11.0 fL (9.4-12.4) 05/17/25 17:05 Immature Gran % (Auto) 0.4 % 05/17/25 17:05 Neut % (Auto) 72.8 % 05/17/25 17:05 Lymph % (Auto) 14.9 % 05/17/25 17:05 [place] % (Auto) 11.0 % 05/17/25 17:05 Eos % (Auto) 0.6 % 05/17/25 17:05 Baso % (Auto) 0.3 % 05/17/25 17:05 Neut # (Auto) 10.31 K/uL (1.40-6.50) H 05/17/25 17:05 Lymph # (Auto) 2.11 K/uL (1.20-3.40) 05/17/25 17:05 [place] # (Auto) 1.56 K/uL (0.11-0.59) H 05/17/25 17:05 Eos # (Auto) 0.08 K/uL (0.00-0.50) 05/17/25 17:05 Baso # (Auto) 0.04 K/uL (0.00-0.20) 05/17/25 17:05 Immature Gran # (Auto) 0.05 K/uL (0.01-0.20) 05/17/25 17:05 VBG pH 7.29 (7.36-7.41) L 05/17/25 17:42 VBG pCO2 50 mmHg (38-50) 05/17/25 17:42 VBG pO2 32 mmHg 05/17/25 17:42 VBG HCO3 24 mmol/L 05/17/25 17:42 VBG O2 Saturation < 60.0 % 05/17/25 17:42 VBG Base Excess -3.1 mEq/L 05/17/25 17:42 Sodium 138 mmol/L (136-145) 05/17/25 17:05 Potassium 4.2 mmol/L (3.5-5.1) 05/17/25 17:05 Chloride 99 mmol/L (98-107) 05/17/25 17:05 Carbon Dioxide 26 mmol/L (21-32) 05/17/25 17:05 Anion Gap 13 (3-11) H 05/17/25 17:05 BUN 23 mg/dl (6-23) 05/17/25 17:05 Creatinine 1.35 mg/dl (0.6-1.4) 05/17/25 17:05 Est Cr Clr Drug Dosing 106.6 ml/min 05/17/25 17:05 eGFR 63.96 05/17/25 17:05 BUN/Creatinine Ratio 17.0 (10-20) 05/17/25 17:05 Glucose 163 mg/dl (70-99(Fasting)) H 05/17/25 17:05 POC Glucose 154 mg/dl (70-99) H 05/17/25 21:36 Lactate 1.1 mmol/L (0.4-2.0) 05/17/25 19:15 Calcium 9.8 mg/dl (8.6-10.3) 05/17/25 17:05 Magnesium 1.7 mg/dl (1.7-2.4) 05/17/25 17:05 Total Bilirubin 0.9 mg/dl (0.2-1.0) 05/17/25 17:05 Direct Bilirubin 0.2 mg/dl (0-0.2) 05/17/25 17:05 AST 14 U/L (13-39) 05/17/25 17:05 ALT 18 U/L (7-52) 05/17/25 17:05 Alkaline Phosphatase 96 U/L (34-104) 05/17/25 17:05 Troponin I High Sens 13.8 pg/ml (0-20) 05/17/25 17:05 Total Protein 7.6 gm/dl (6.0-8.3) 05/17/25 17:05 Albumin 3.9 gm/dl (3.4-5.0) 05/17/25 17:05 Procalcitonin 0.14 ng/ml (0-0.5) 05/17/25 17:05 Urine Color Yellow 05/17/25 22:51 Urine Appearance Clear (Clear) 05/17/25 22:51 Urine pH 5.0 (4.5-7.5) 05/17/25 22:51 Ur Specific [place] 1.045 (1.000-1.030) H 05/17/25 22:51 Urine Protein Negative (Negative) 05/17/25 22:51 Urine Glucose (UA) Negative (Negative) 05/17/25 22:51 Urine Ketones 1+ (Negative) H 05/17/25 22:51 Urine Blood Trace (Negative) H 05/17/25 22:51 Urine Nitrite Negative (Negative) 05/17/25 22:51 Urine Bilirubin Negative (Negative) 05/17/25 22:51 Urine Urobilinogen Negative (Negative) 05/17/25 22:51 Ur Leukocyte Esterase Negative (Negative) 05/17/25 22:51 Urine WBC (Auto) 0-5 /hpf (0-5) 05/17/25 22:51 Urine RBC (Auto) 0-2 /hpf (0-2) 05/17/25 22:51 U Hyaline Cast (Auto) 0-2 /lpf (0-2) 05/17/25 22:51 U Epithel Cells (Auto) 0-2 /hpf (0-2) 05/17/25 22:51 Urine Bacteria (Auto) None Seen (None Seen) 05/17/25 22:51 Urine Comment 05/17/25 22:51 Nasal Screen MRSA (PCR) Negative (Negative) 05/17/25 17:56 Impressions Chest X-Ray 05/17/25 17:22 Clinical History: Sepsis Technique: A frontal view of the chest was obtained Comparison is made to the prior examination dated 07/31/2021 Findings: There are no definite pulmonary infiltrates. The heart size is within normal limits. No pleural effusion or pneumothorax is seen. There is no definite pulmonary nodule. No fracture is noted. No foreign body is seen Impression: No active disease Electronically signed by Sukhi Moreno 05-17-2025 5:[address] 05/17/25 17:50 CT RIGHT FEMUR WITH CONTRAST: HISTORY: TECHNIQUE: CT of the right femur was obtained with intravenous contrast. Coronal and sagittal reformats were created. IV CONTRAST: 100 mL of OMNIPAQUE 300 COMPARISON: None FINDINGS: In the subcutaneous tissues of the medial right thigh there are fungal changes with edema and overlying skin thickening. Within the subcutaneous tissues are scattered nodular intermediate density structures measuring up to 5.5 cm (for example series 500 jakob image 25). No rim-enhancing, organized fluid collection is identified. No acute fractures identified. IMPRESSION: Soft tissue inflammation as described above in the subcutaneous tissues of the medial thigh. Overall findings are consistent with cellulitis. No rim-enhancing, organized fluid collection is identified to suggest a well-formed abscess at this time. Intermediate density nodular structures in this area of inflammation are nonspecific however could represent developing abscesses. Also on consideration may be hematomas. Electronically signed by Fredo Angulo 05-17-2025 7:27 PM PG Care Time/CCT Total # of Minutes Spent Total Time Spent with Patient: Total time spent is greater than 50% in coordination of care (as documented) at patient's floor/unit and/or counseling patient: Coding Level of Care Code 90956 INT INP/OBS CARE 3/75MIN Diagnoses Cellulitis of leg, right L03.115 Hypertension, unspecified type I10 Hypertension type: unspecified Type 2 diabetes mellitus without complication, without long-term current use of insulin E11.9 (2) HTN (hypertension) Hypertension type: unspecified Qualified Code(s): I10 - Essential (primary) hypertension
[2025-05-17] MEDS ORDERED: DEXTROSE 50% 50 ML SYRINGE IV PRN (21:07)
[2025-05-17] MEDS ORDERED: GLUCOSE 40% GEL 15 GM TUBE PO PRN (21:07)
[2025-05-17] MEDS ORDERED: GLUCAGON FOR INJ 1 MG VIAL SQ PRN (21:07)
[2025-05-17] MEDS ORDERED: CARBOHYDRATES FOR HYPOGLYCEMIA PO PRN (21:07)
[2025-05-17] MEDS ORDERED: GLUCOSE 10 TAB/TUBE PO PRN (21:07)
[2025-05-17] MEDS: INSULIN ASPART PER UNIT CHARGE SC SCH (21:44)
[2025-05-17] MEDS: LACTATED RINGER'S 1,000 ML IV SCH (21:50)
[2025-05-17] MEDS: ONDANSETRON INJ 2 MG/ML 2 ML VIAL IV PRN (21:55)
[2025-05-17] MEDS: LANTUS PER UNIT CHARGE SQ SCH (22:00)
[2025-05-17] MEDS: PIPERACILLIN/TAZOBACTAM 4.5 GM/100 ML BAG IV SCH (23:51)
[2025-05-18 00:23] LABS: Appearance Urine Clear (Clear); Bacteria Urine Automated None Seen (None Seen); Cast Urine Automated 0-2 /lpf (0-2); Epithelial Cell Urine Auto 0-2 /hpf (0-2); Glucose Urine UA Negative (Negative); RBC Urine Automated 0-2 /hpf (0-2); WBC Urine Automated 0-5 /hpf (0-5)
[2025-05-18] MEDS: ACETAMINOPHEN 325 MG TAB PO PRN (03:31)
[2025-05-18 08:02] LABS: Hematocrit (blood only) 39.5 % (42.0-52.0); Hemoglobin 13.7 g/dl (14.0-18.0); Mean Corpuscular Hemoglobin 29.8 pg (25.0-34.0); Mean Corpuscular Volume 85.9 fL (80.0-100.0); Platelet Count 258 K/uL (130-400); RDW Standard Deviation 42.4 fL (36.4-46.3); Red Blood Count 4.60 M/uL (4.70-6.10); White Blood Count 11.89 K/ul (4.8-10.8)
[2025-05-18] MEDS: ROSUVASTATIN CALCIUM 20 MG TAB PO SCH (08:21)
[2025-05-18] MEDS: VALSARTAN 80 MG TAB PO SCH (08:21)
[2025-05-18 08:23] LABS: Anion Gap 6.0 (3-11); Blood Urea Nitrogen 14.0 mg/dl (6-23); Calcium 8.9 mg/dl (8.6-10.3); Carbon Dioxide 27.0 mmol/L (21-32); Chloride 102.0 mmol/L (98-107); Creatinine Clr Calc Pharmacy 161.2 ml/min; Glucose 173.0 mg/dl (70-99(Fasting)); Potassium 4.1 mmol/L (3.5-5.1); Sodium 135.0 mmol/L (136-145)
--- NOTE | 2025-05-18 08:31 | Hospitalist Progress Note ---
Date of Service May 18, 2025 Assessment & Plan (1) Cellulitis of leg, right: (2) HTN (hypertension): (3) Diabetes: Plan 49yo male with history of DM admitted with right thigh cellulitis #Sepsis (POA) caused by cellulitis of right leg - Some concern for possible early abscesses noted on CT. overall the cellulitis has improved on the current antibiotics however the central area is still extremely indurated and lumpy most of it is probably phlegmon at the distal part has developed some fluctuance concerning for small abscess. MRSA naris was negative. white blood count improved from 14 down to 11.8, hemoglobin is stable after dilutional drop, chemistry panel is normal. sepsis has resolved -Continue Zosyn -Tylenol and Zofran PRN - Because of the severe central induration and likely progressed to abscess ongoing hospitalization with IV antibiotics is warranted and will need to be reimaged with ultrasound to evaluate for abscess however we will give it an interval to progress, probably tomorrow #Diabetes - patient with mildly elevated blood sugar today. Reports his sugars have been high since having the infection. Poor oral intake and PO intolerance over the last several days. Last AcjA9N=8.7 on 12/16/24 -Lantus 12u BID and as needed short acting insulin -Goal blood sugar 110 - 160 -Hold Metformin and Ozempic - he has had 1 blood glucose above goal, continue current insulins and monitor for now #Hypertension -Continue Valsartan 80mg po daily -Monitor #Hyperlipidemia - chronic. stable -Continue Crestor 20mg po daily Admission and Anticipated Discharge Date Admission Date: May 17, 2025 Subjective Mr. Stovall is feeling better compared to yesterday he does feel tired, he thinks the redness in his right thigh has improved and has receded Physical Exam 2 Physical Exam: Last 24h vitals reviewed GEN: no acute distress, sitting in bed HEENT: pupils equal, sclerae anicteric, moist MM RESP: normal WOB CV: ABD: nondistended : no juárez SKIN: warm and dry, no generalized rashes. right upper medial thigh with area of erythema which has receded from the markings placed in the ED, the central area is very indurated and lumpy 1 small portion of this more distal is fluctuant NEURO: AOx person, place, and situation. Face symmetric, speech normal, moves 4 ext spontaneously and equally Results & Data Results & Data Vital Signs (Past 12 Hours) Vital Signs Temp Pulse Pulse Pulse Resp BP BP 05/18/25 07:31 37.0 C 80 16 05/17/25 22:56 37.0 C 77 16 149/84 H 05/17/25 20:53 81 17 143/78 H BP Pulse Ox O2 Del Method 05/18/25 07:31 124/80 95 Room Air 05/17/25 22:56 94 Room Air 05/17/25 20:53 92 Room Air Laboratory Results 05/18/25 07:21 05/18/25 07:21 PG Care Time/CCT Total # of Minutes Spent Total Time Spent with Patient: Total time spent is greater than 50% in coordination of care (as documented) at patient's floor/unit and/or counseling patient: Coding Level of Care Code 95264 SUB INP/OBS CARE 2/35MIN Diagnoses Cellulitis of leg, right L03.115 Hypertension, unspecified type I10 Hypertension type: unspecified Type 2 diabetes mellitus without complication, without long-term current use of insulin E11.9 (2) HTN (hypertension) Hypertension type: unspecified Qualified Code(s): I10 - Essential (primary) hypertension
--- NOTE | 2025-05-19 13:40 | Ultrasound Report ---
US soft tissue ext ltd HISTORY: 49 years-old Male Right thigh possible abscess acute pain and swelling of the lower legs COMPARISON: None TECHNIQUE: Multiple real-time sonographic images of the right thigh soft tissues were obtained assess ing grayscale appearance and color flow FINDINGS: Dermal thickening with subcutaneous edema. There is a taller than wide and irregular hypoechoic lesio n/collection in the area of clinical concern measuring 2.5 x 3.0 x 1.0 cm extending to the skin surfa ce. This is adjacent to a deeper wider than tall collection which is approximately 2 cm deep to the s kin surface measuring 9.4 x 6.7 x 1.9 cm. No definitive communication between these 2 fluid collectio ns. IMPRESSION: Probable cellulitis with phlegmon/abscess formation as above. ACT 112: Negative or not required by law. The above report was generated using voice recognition software. It may contain grammatical, syntax o r spelling errors. Electronically signed by: Harley Gould M.D. 05/19/2025 1:39 PM
--- NOTE | 2025-05-19 16:34 | Hospitalist Progress Note ---
Date of Service May 19, 2025 Assessment & Plan (1) Cellulitis of leg, right: (2) HTN (hypertension): (3) Diabetes: Plan 49yo male with history of DM admitted with right thigh cellulitis #Sepsis (POA) caused by cellulitis and abscess of right leg - Central areas concerning for abscess(es) - obtained ultrasound - two areas of abscess present -consult general surgery for I&D, culture would be helpful -Continue pip-tazo though probably staph aureus and can be narrowed. Has been improving without MRSA coverage #Diabetes - Last RdmS8H=9.7 on 12/16/24 -Lantus 12u BID and as needed short acting insulin - continue. reviewed BG and most readings at goal -Hold Metformin and Ozempic #Hypertension -Continue Valsartan 80mg po daily -Monitor, well controlled #Hyperlipidemia - chronic. stable -Continue Crestor 20mg po daily DVT ppx - start enox Admission and Anticipated Discharge Date Admission Date: May 17, 2025 Subjective Left thigh still painful when he gets OOB to walk Redness area decreased but central area still persisting Physical Exam Physical Exam: Last 24h vitals reviewed GEN: lying in bed awake HEENT: pupils equal, sclerae anicteric, moist MM RESP: normal WOB CV: ABD: nondistended : no juárez SKIN: R medial thigh large area of cellulitis has faded back a lot, however, large central area still beefy red and indurated, tender. There is obvious 3 cm abscess distal to that area that is pointing. NEURO: AOx person, place, and situation. Face symmetric, speech normal, moves 4 ext spontaneously and equally Results & Data Results & Data Vital Signs (Past 12 Hours) Vital Signs Temp Pulse Resp BP Pulse Ox O2 Del Method 05/19/25 14:50 36.6 C 76 16 130/84 94 Room Air 05/19/25 09:54 36.9 C 77 16 112/75 92 Room Air PG Care Time/CCT Total # of Minutes Spent Total Time Spent with Patient: Total time spent is greater than 50% in coordination of care (as documented) at patient's floor/unit and/or counseling patient: Coding Level of Care Code 74750 SUB INP/OBS CARE 3/50MIN Diagnoses Cellulitis of leg, right L03.115 Hypertension, unspecified type I10 Hypertension type: unspecified Type 2 diabetes mellitus without complication, without long-term current use of insulin E11.9 (2) HTN (hypertension) Hypertension type: unspecified Qualified Code(s): I10 - Essential (primary) hypertension
--- NOTE | 2025-05-19 17:39 | Surgery Consultation ---
Date of Consultation May 19, 2025 Assessment & Plan (1) Cellulitis of leg, right: His CT and ultrasound images and results were personally viewed and interpreted by myself He does have 2 separate areas on his medial right thigh that seem to be abscess versus phlegmon I will make him n.p.o. after midnight and plan on incision and drainage of the right thigh abscess x 2 in the operating room tomorrow (2) Abscess of right thigh: History of Present Illness Reason for Consultation: Right thigh abscess x 2 Attending Physician: Audrey Folye MD History of Present Illness This is a 49-year-old male who was admitted to the hospital 2 days ago with right medial thigh cellulitis. CT scan at that time did not reveal any abscess. There was an ultrasound repeated today that revealed 2 abscesses at the site of interest. He states the area is improving as far as redness but he still having pain. Sharp in nature. Denies any drainage. He is diabetic. Denies any blood thinners. He states that the area did start about 2 weeks prior to admission as there was a pimple that he picked off and then developed into this cellulitis. He was having some fevers at home. Denies any chills. Allergies Allergy/AdvReac Type Severity Reaction Status Date / Time No Known Allergies Allergy Verified 05/17/25 19:32 Home Medications Medication Instructions Recorded Confirmed Type naproxen sodium 220 mg tablet 440 mg PO DIRECTED PRN Pain 03/01/24 05/17/25 History (Aleve) lancets 33 gauge (OneTouch Delica #100 ea 03/05/24 12/24/24 Rx Plus Lancet) blood sugar diagnostic (OneTouch #100 ea 05/24/24 12/24/24 Rx Verio test strips) blood-glucose,acting section chief,cont #1 ea 05/24/24 12/24/24 Rx (FreeStyle Tim 3 [place]) insulin aspart U-100 100 unit/mL See Rx Instructions subcut .TID 05/24/24 05/17/25 Rx (3 mL) subcutaneous pen (Novolog with meals #15 mL FlexPen U-100 Insulin aspart) insulin glargine-yfgn 100 unit/mL 42 unit (0.42 mL) subcut DAILY #15 05/24/24 05/17/25 Rx (3 mL) subcutaneous pen (Semglee mL (insulin glargine-yfgn) Pen) pen needle, diabetic 32 gauge x #200 ea 05/24/24 12/24/24 Rx 32" (Comfort EZ Pen [place]) rosuvastatin 20 mg tablet 20 mg PO DAILY #90 tabs 06/15/24 05/17/25 Rx valsartan 80 mg tablet 80 mg PO DAILY #90 tabs 12/16/24 05/17/25 Rx acetone (urine) test (Ketostix #25 ea 12/24/24 12/24/24 Rx strips) blood-glucose sensor (FreeStyle #2 ea 12/24/24 12/24/24 Rx Tim 3 Sensor device) metformin 500 mg tablet,extended 1,000 mg (2 x 500 mg) PO BIDM #360 05/17/25 05/17/25 Rx release 24 hr tabs semaglutide 0.25 mg or 0.5 mg (2 0.5 mg subcut WK 05/17/25 05/17/25 History mg/3 mL) subcutaneous pen injector (Ozempic) Patient History Medical History Dyslipidemia Pneumonia due to COVID-19 virus Acute hypoxemic respiratory failure Hyponatremia Hypoxia Depression GERD (gastroesophageal reflux disease) Left sided chest pain Surgical History Status post medial meniscus repair History of tonsillectomy Family History Other Heart disease Social History Smoking Status: Former smoker Tobacco Type: Cigarettes Age Started Using Tobacco: 22; Age Quit Using Tobacco: 24; packs per day: 1; Second Hand Exposure: No; Do You Dip or Chew Tobacco: No; Hx Alcohol Use: Yes Alcohol type: hard liquor Hx Substance Use: No Preferred Language: Indonesian Communication Ability: Effective Osteopathic Physician Required: No Beliefs That Will Affect Care: None Current Living Situation: Family current occupational status: employed Feels Safe at Home: Yes Safety Concerns: Feels Safe At This Time Childhood Exposure to Second-Hand Smoke: Yes Diet: regular caffeine: Yes Dental Care, Regularly: No Physical Activity Frequency: 5-6 Times per Week Seatbelt Use: always Sunscreen Use: No Assistive Devices: None Review of Systems Constitutional: + fever; no chills Eyes: no blind spots and no corrective lenses Ear, Nose, Mouth, Throat: no ear pain and no hearing loss Respiratory: no cough and no dyspnea Cardiovascular: no chest pain and no dyspnea on exertion Gastrointestinal: no abdominal pain, no nausea and no vomiting Genitourinary: no dysuria or no nocturia Musculoskeletal: no back pain and no neck pain Integumentary: + skin ulcer and + erythema; no acne and no lesions Neurologic: no gait abnormality and no loss of sensation Psychiatric: no behavioral changes and no depression Hematologic / Lymphatic: no easy bleeding and no easy bruising Physical Exam 2 Constitutional: WD/WN, vitals as above Eyes: PERRL, conjunctivae normal, anicteric sclerae ENMT: external ear and nose normal, oropharynx normal Neck: trachea midline, no thyromegaly Respiratory: normal respiratory effort, lungs clear to auscultation Cardiovascular: RRR, no murmur, no edema Gastrointestinal (Abdomen): normal bowel sounds, soft, nontender, no hepatosplenomegaly Musculoskeletal: no cyanosis or clubbing, extremities motor strength 5/5 Skin: no rashes, warm and dry Right medial thigh with erythema that is improved within the markings Small 3 cm abscess more posteriorly with a larger 10 cm area of phlegmon versus abscess more anterior Neurologic: PERRL, EOMI, accommodation nl, no face palsy, no dysarthria Psychiatric: A+Ox3, euthymic affect Results & Data Vital Signs (Past 12 Hours) Vital Signs Temp Pulse Resp BP Pulse Ox O2 Del Method 05/19/25 14:50 36.6 C 76 16 130/84 94 Room Air 05/19/25 09:54 36.9 C 77 16 112/75 92 Room Air PG Care Time/CCT Total # of Minutes Spent Total Time Spent with Patient: Total time spent is greater than 50% in coordination of care (as documented) at patient's floor/unit and/or counseling patient: Coding Level of Care Code 41258 IN/OBS CONSULT LVL 5,80M Diagnoses Cellulitis of leg, right L03.115 Abscess of right thigh L02.415
[2025-05-20] MEDS: INSULIN ASPART PER UNIT CHARGE SC SCH ×2 (06:02→17:28)
--- NOTE | 2025-05-20 08:59 | Anesthesiology Consultation ---
Date of Service May 20, 2025 Assessment & Plan Chart Review Chart Review: Acceptable Risk for Surgery and Patient NOT seen in Pre Admission Testing History Surgery Operation Date: 05/20/25 07:00 Proposed Procedures p Incision and Drainage Right Thigh Abscess x 2 - Gato Busch DO Height/Weight Height: 6 ft Weight: 173.8 kg Allergies Allergy/AdvReac Type Severity Reaction Status Date / Time No Known Allergies Allergy Verified 05/17/25 19:32 Medications Home Medications Medication Instructions Recorded Confirmed Last Taken naproxen sodium 220 mg tablet 440 mg PO DIRECTED PRN Pain 03/01/24 05/17/25 03/01/24 10:30 (Aleve) lancets 33 gauge (OneTouch Delica #100 ea 03/05/24 12/24/24 Unknown Plus Lancet) blood sugar diagnostic (OneTouch #100 ea 05/24/24 12/24/24 Unknown Verio test strips) blood-glucose,drapery rod assembler,cont #1 ea 05/24/24 12/24/24 Unknown (FreeStyle Tim 3 [place]) insulin aspart U-100 100 unit/mL See Rx Instructions subcut .TID 05/24/24 05/17/25 05/17/25 (3 mL) subcutaneous pen (Novolog with meals #15 mL FlexPen U-100 Insulin aspart) insulin glargine-yfgn 100 unit/mL 42 unit (0.42 mL) subcut DAILY #15 05/24/24 05/17/25 05/17/25 (3 mL) subcutaneous pen (Semglee mL (insulin glargine-yfgn) Pen) pen needle, diabetic 32 gauge x #200 ea 05/24/24 12/24/24 Unknown " (Comfort EZ Pen [place]) rosuvastatin 20 mg tablet 20 mg PO DAILY #90 tabs 06/15/24 05/17/25 05/17/25 valsartan 80 mg tablet 80 mg PO DAILY #90 tabs 12/16/24 05/17/25 05/17/25 acetone (urine) test (Ketostix #25 ea 12/24/24 12/24/24 Unknown strips) blood-glucose sensor (FreeStyle #2 ea 12/24/24 12/24/24 Unknown Tim 3 Sensor device) metformin 500 mg tablet,extended 1,000 mg (2 x 500 mg) PO BIDM #360 05/17/25 05/17/25 05/17/25 08:00 release 24 hr tabs semaglutide 0.25 mg or 0.5 mg (2 0.5 mg subcut WK 05/17/25 05/17/25 05/15/25 mg/3 mL) subcutaneous pen injector (Ozempic) Active Medications Generic Name Dose Route Start Last Admin Trade Name Freq PRN Reason Stop Dose Admin Acetaminophen 650 mg 05/17/25 21:07 05/19/25 21:29 Acetaminophen 325 Mg Tab PO 06/16/25 21:06 650 mg Q4H PRN Administration Pain or Fever Piperacillin Sod/Tazobactam Sod 4.5 gm in 100 mls @ 25 mls/hr 05/18/25 00:00 05/20/25 03:22 Zosyn IV 05/25/25 00:00 Infused Q8H DIGNA Infusion Protocol Insulin Aspart 0 units 05/20/25 06:00 05/20/25 06:02 Insulin Aspart Per Unit Charge SC 06/19/25 05:59 Not Given Q6 DIGNA Insulin Glargine 12 units 05/17/25 21:07 05/19/25 20:28 Lantus Per Unit Charge SQ 06/16/25 21:06 12 units BID DIGNA Administration Ondansetron HCl 4 mg 05/17/25 21:07 05/17/25 21:55 Ondansetron Inj 2 Mg/Ml 2 Ml Vial IV 06/16/25 21:06 4 mg Q6H PRN Administration Nausea And Vomiting Rosuvastatin Calcium 20 mg 05/18/25 09:00 05/19/25 08:11 Rosuvastatin Calcium 20 Mg Tab PO 06/17/25 08:59 20 mg DAILY DIGNA Administration Valsartan 80 mg 05/18/25 09:00 05/19/25 08:11 Valsartan 80 Mg Tab PO 06/17/25 08:59 80 mg DAILY DIGNA Administration NPO Date Last Intake of Fluids: 05/19/25 Time Last Intake of Fluids: 20:00 Past Medical History Medical History Dyslipidemia Pneumonia due to COVID-19 virus Acute hypoxemic respiratory failure Hyponatremia Hypoxia Depression GERD (gastroesophageal reflux disease) Left sided chest pain Past Family History Family History Other Heart disease Past Surgical History Surgical History Status post medial meniscus repair History of tonsillectomy Social History Smoking Status: Former smoker Do You Dip or Chew Tobacco: No Hx Alcohol Use: Yes Alcohol type: hard liquor alcohol intake frequency: holidays/special occasions only Hx Substance Use: No Physical Exam Vital Signs Last Vital Signs Temp 37.1 C 05/20/25 07:07 Pulse 78 05/20/25 07:07 Resp 16 05/20/25 07:07 BP 111/70 05/20/25 07:07 Pulse Ox 92 05/20/25 07:07 O2 Del Method Room Air 05/20/25 07:07 Testing Laboratory Results 05/18/25 07:21 05/18/25 07:21 Urine Color Yellow 05/17/25 22:51 Urine Appearance Clear (Clear) 05/17/25 22:51 Urine pH 5.0 (4.5-7.5) 05/17/25 22:51 Ur Specific [place] 1.045 (1.000-1.030) H 05/17/25 22:51 Urine Protein Negative (Negative) 05/17/25 22:51 Urine Glucose (UA) Negative (Negative) 05/17/25 22:51 Urine Ketones 1+ (Negative) H 05/17/25 22:51 Urine Nitrite Negative (Negative) 05/17/25 22:51 Ur Leukocyte Esterase Negative (Negative) 05/17/25 22:51 Urine WBC (Auto) 0-5 /hpf (0-5) 05/17/25 22:51 Urine RBC (Auto) 0-2 /hpf (0-2) 05/17/25 22:51 U Hyaline Cast (Auto) 0-2 /lpf (0-2) 05/17/25 22:51 U Epithel Cells (Auto) 0-2 /hpf (0-2) 05/17/25 22:51 Urine Bacteria (Auto) None Seen (None Seen) 05/17/25 22:51 05/17/25 17:05 Aerobic Blood Culture - Preliminary Blood No growth in Aerobic bottle after 48 hours. Anaerobic Blood Culture - Preliminary No growth in Anaerobic bottle after 48 hours. 05/17/25 17:42 Aerobic Blood Culture - Preliminary Blood No growth in Aerobic bottle after 48 hours. Anaerobic Blood Culture - Preliminary No growth in Anaerobic bottle after 48 hours. 05/20/25 05:59 POC Glucose 160 H
--- NOTE | 2025-05-20 09:29 | Surgery Progress Note ---
Date of Service May 20, 2025 Assessment & Plan (1) Cellulitis of leg, right: Plan: Patient planned for incision and drainage of the right thigh abscess x 2 in the operating room today with Dr. Busch. General surgery will provide post-operative instructions following procedure Admission and Anticipated Discharge Date Admission Date: May 20, 2025 Supervising Physician Co-Signing Physician Notes I personally saw and evaluated the patient with Niko Chaney PA-C and agree with the assessment and plan. Will plan on incision and drainage of right thigh abscess x 2 today Consent was obtained, risks discussed including bleeding, infection, nonhealing wound, need for further surgery Subjective Patient seen and evaluated this morning, planning for incision and drainage of the right thigh abscess x 2 today Physical Exam Constitutional: WD/WN, vitals as above Respiratory: normal respiratory effort, lungs clear to auscultation Cardiovascular: Rate/Rhythm: regular rate Gastrointestinal (Abdomen): normal bowel sounds, soft, nontender, no hepatosplenomegaly Skin: RLE with erythema at the medial thigh +Small 3cm abscess more posteriorly with a larger 10cm area abscess more anterior Results & Data Vital Signs (Past 12 Hours) Vital Signs Temp Pulse Resp BP Pulse Ox O2 Del Method 05/20/25 07:07 37.1 C 78 16 111/70 92 Room Air PG Care Time/CCT Total # of Minutes Spent Total Time Spent with Patient: Total time spent is greater than 50% in coordination of care (as documented) at patient's floor/unit and/or counseling patient: Coding [place] [address] SUB INP/OBS CARE 11/20MIN Patient Type Established Medical Decision Making Straight Forward Diagnoses Cellulitis of leg, right L03.115
[2025-05-20] MEDS ORDERED: LIDOCAINE 2% 2 ML VIAL/AMP(20MG/ML) INFIL ONE (10:45)
[2025-05-20] MEDS ORDERED: MIDAZOLAM HCL 1 MG/ML 2ML VIAL ONE (10:45)
[2025-05-20] MEDS ORDERED: ONDANSETRON INJ 2 MG/ML 2 ML VIAL ONE (10:45)
[2025-05-20] MEDS ORDERED: PROPOFOL IV EMULSION 10 MG/ML 20 ML VIAL IV ONE ×2 (10:45→11:49)
[2025-05-20] MEDS ORDERED: PROMETHAZINE HCL 6.25 MG in SODIUM CHLORIDE 0.9% 50 ML IV PRN (11:20)
[2025-05-20] MEDS ORDERED: HYDROmorphone INJ 1 MG/ML SYRINGE IV PRN (11:20)
[2025-05-20] MEDS ORDERED: ONDANSETRON INJ 2 MG/ML 2 ML VIAL IV PRN (11:20)
[2025-05-20] MEDS ORDERED: ATROPINE SULFATE 0.1 MG/ML 10ML SYR IV PRN (11:20)
[2025-05-20] MEDS ORDERED: SUCCINYLCHOLINE CHLORIDE 20 MG/ML 10 ML VIAL IV ONE (11:22)
[2025-05-20] MEDS: LACTATED RINGER'S 1,000 ML IV SCH (11:22)
[2025-05-20] MEDS ORDERED: DEXAMETHASONE SOD INJ 4 MG/ML VIAL ONE (11:43)
--- NOTE | 2025-05-20 12:00 | Post Operative Brief Note ---
PG Immediate Post Op with CF Date of Surgery May 20, 2025 Pre & Post Diagnosis Operation Date: 05/20/25 07:00 Pre-Op diagnosis right thigh abscess Postop diagnosis right thigh abscess I identified the patient and participated in the time-out.: Yes Procedure Operation Date: 05/20/25 07:00 Incision and drainage of right thigh abscess Surgeon Gato Busch DO Shelf Filler Niko Spencer PA-C Estimated Blood Loss 10 Findings See Below Large abscess cavity within the medial right thigh Specimens Specimen Description: 1. Right thigh abscess. Anesthesia Type General Complications none Disposition Disposition: Recovery Room
[2025-05-20] MEDS: BUPIVACAINE/EPINEPHRINE 0.25% 1:200,000 30 ML VIAL ONE (12:02)
--- NOTE | 2025-05-20 12:03 | Operative Report ---
PG Post Operative Report Pre & Post Diagnosis Operation Date: 05/20/25 07:00 Pre-Op diagnosis: Right thigh abscess Postop diagnosis: Right thigh abscess I identified the patient and participated in the time-out.: Yes Procedure Operation Date: 05/20/25 07:00 Incision and drainage of right thigh abscess Surgeon Gato Busch DO Teletypist Niko Spencer PA-C Estimated Blood Loss 10 Findings See Below 1 large subcutaneous right thigh abscess Specimens Right thigh abscess fluid for culture Drains None Anesthesia Type General Complications none Disposition Disposition: Recovery Room Indications 49-year-old male with a right thigh abscess Description of Procedure The patient was brought to the OR and placed in the supine position. At this time he underwent General Endotracheal anesthesia without issue. He was given appropriate pre-operative antibiotics. The right thigh was prepped and draped in the usual sterile fashion. A timeout was called. The procedure was verified as Incision and drainage of right thigh abscess. Surgical, anesthesia and nursing teams agreed and the procedure was begun. After injection of 0.25% Marcaine with epinephrine, an incision was made directly over the most fluctuant area of abscess at the inferior portion of erythema using a #15 blade scalpel. The more superior abscess did connect with this area. The incision was then extended proximally for about 5 cm. Purulent fluid was encountered. Culture was taken. Wide drainage was ensured. All loculations were broken up bluntly. At this time the incision was irrigated until clear. Hemostasis was achieved using electrocautery. Hemostasis was complete. The incision was packed with a wet to dry Kerlix. Sterile dressing was applied. The patient was awakened from anesthesia and taking to PACU having remained stable throughout the entire case. All needle and sponge counts correct x 2. The physician first assistant was present scrubbed for the entire case. She was essential in positioning, prepping and draping the patient, retraction and exposure, placement of dressings. I attest to the content of the Intraoperative Record and any orders documented therein. Any exceptions are noted below.
--- NOTE | 2025-05-20 13:03 | Anesthesiology Progress Note ---
Date of Service May 20, 2025 Anesthesia Post Procedure Vital Signs Vital Signs: Temp Pulse Pulse Resp BP BP Pulse Ox 05/20/25 12:45 37 C 64 17 104/71 93 05/20/25 12:35 71 14 120/71 94 05/20/25 12:25 75 14 122/71 98 05/20/25 12:14 36.4 C L 79 25 H 121/87 97 05/20/25 10:59 36.6 C 82 20 127/87 94 05/20/25 07:07 37.1 C 78 16 111/70 92 05/19/25 20:30 126/73 05/19/25 19:27 37.1 C 84 16 94/60 L 91 05/19/25 14:50 36.6 C 76 16 130/84 94 O2 Del Method O2 Flow Rate 05/20/25 12:45 Room Air 05/20/25 12:35 Room Air 05/20/25 12:25 Oxymask 4 05/20/25 12:14 Oxymask 8 05/20/25 10:59 Room Air 05/20/25 07:07 Room Air 05/19/25 20:30 05/19/25 19:27 Room Air 05/19/25 14:50 Room Air Pain Intensity Right Groin: Pain Intensity: 2 Transfer of Care Handoff Completed per policy Notes Mental Status: alert / awake / arousable and participated in evaluation Patient Amnestic to Procedure: Yes Nausea / Vomiting: adequately controlled Pain: adequately controlled Airway Patency, RR, SpO2: stable & adequate BP & HR: stable & adequate Hydration State: stable & adequate Anesthetic Complications: no major complications apparent and Pt Satisfied with anesthetic care
[2025-05-20] MEDS ORDERED: Nursing to Pharmacy Communication SCH (14:00)
--- NOTE | 2025-05-20 17:40 | Hospitalist Progress Note ---
Date of Service May 20, 2025 Assessment & Plan (1) Cellulitis of leg, right: (2) HTN (hypertension): (3) Diabetes: Plan 49yo male with history of DM admitted with right thigh cellulitis #Sepsis (POA) caused by cellulitis and abscess of right leg - sepsis resolved Treated with pip-tazo and improved without MRSA coverage Underwent I&D of large medial R thigh abscess in OR with Dr. Busch today Dressing change tomorrow by surgeon - discussed with surgical PA GPC's on gram stain from operative specimen, culture pending - expect staph aureus. Change abx to cefazolin #Diabetes - Last [id number] on 12/16/24 -Lantus 12u BID and as needed short acting insulin - continue. BG a little elevated because half dose glargine while npo this am. no changes -Hold Metformin and Ozempic #Hypertension -Continue Valsartan 80mg po daily -Monitor, well controlled #Hyperlipidemia - chronic. stable -Continue Crestor 20mg po daily DVT ppx - start enox in am Admission and Anticipated Discharge Date Admission Date: May 20, 2025 Subjective R thigh still painful when getting up. Central area bulging more Physical Exam Physical Exam: Last 24h vitals reviewed GEN: lying in bed awake HEENT: pupils equal, sclerae anicteric, moist MM RESP: normal WOB CV: ABD: nondistended : no juárez SKIN: R medial thigh large area of cellulitis has largely resolved, large absces s much more apparent and bulging/fluctuant today, second abscess more inferiorly now quite discrete and pointing NEURO: AOx person, place, and situation. Face symmetric, speech normal, moves 4 ext spontaneously and equally Results & Data Results & Data Vital Signs (Past 12 Hours) Vital Signs Temp Pulse Pulse Pulse Resp BP BP 05/20/25 14:25 37 C 74 16 140/75 05/20/25 13:40 36.7 C 64 16 128/76 05/20/25 13:15 37.1 C 79 16 109/67 05/20/25 12:45 37 C 64 17 104/71 05/20/25 12:35 71 14 120/71 05/20/25 12:25 75 14 122/71 05/20/25 12:14 36.4 C L 79 25 H 121/87 05/20/25 10:59 36.6 C 82 20 127/87 05/20/25 07:30 05/20/25 07:07 37.1 C 78 16 111/70 Pulse Ox O2 Del Method O2 Flow Rate 05/20/25 14:25 96 Room Air 05/20/25 13:40 92 Room Air 05/20/25 13:15 90 Room Air 05/20/25 12:45 93 Room Air 05/20/25 12:35 94 Room Air 05/20/25 12:25 98 Oxymask 4 05/20/25 12:14 97 Oxymask 8 05/20/25 10:59 94 Room Air 05/20/25 07:30 Room Air 05/20/25 07:07 92 Room Air PG Care Time/CCT Total # of Minutes Spent Total Time Spent with Patient: Total time spent is greater than 50% in coordination of care (as documented) at patient's floor/unit and/or counseling patient: Coding Level of Care Code 12150 SUB INP/OBS CARE MIN Diagnoses Cellulitis of leg, right L03.115 Hypertension, unspecified type I10 Hypertension type: unspecified Type 2 diabetes mellitus without complication, without long-term current use of insulin E11.9 (2) HTN (hypertension) Hypertension type: unspecified Qualified Code(s): I10 - Essential (primary) hypertension
--- NOTE | 2025-05-21 04:55 | Surgery Progress Note ---
Date of Service May 21, 2025 Assessment & Plan (1) Abscess of right thigh: Plan: Patient is status post incision and drainage of right thigh abscess on 05/20/2025 (postop day 1) Provide analgesics as needed Continue antibiotics in the form of Ancef Tailor antibiotics based on operative cultures which are pending Begin dressing changes on postoperative day #2 Admission and Anticipated Discharge Date Admission Date: May 20, 2025 Subjective Patient is resting comfortably in bed. He notes his pain is well-controlled and he denies any fevers, shakes, or chills Physical Exam Physical Exam: dressing to right thigh is clean, dry, intact Results & Data Vital Signs (Past 12 Hours) Vital Signs Temp Pulse Resp BP Pulse Ox O2 Del Method 05/20/25 19:11 36.6 C 81 16 142/94 H 91 Room Air PG Care Time/CCT Total # of Minutes Spent Total Time Spent with Patient: Total time spent is greater than 50% in coordination of care (as documented) at patient's floor/unit and/or counseling patient: Coding Level of Care Code None Diagnoses Abscess of right thigh L02.415
--- NOTE | 2025-05-21 06:42 | Electrocardiogram Report ---
Test Reason : Blood Pressure : */* mmHG Vent. Rate : 86 BPM Atrial Rate : 86 BPM P-R Int : 176 ms QRS Dur : 102 ms QT Int : 374 ms P-R-T Axes : 33 34 36 degrees QTcB Int : 447 ms Sinus rhythm with frequent Premature ventricular complexes Inferior infarct (cited on or before 31-Jul-2021) Possible Anterior infarct , age undetermined Abnormal ECG When compared with ECG of 05-Mar-2024 11:59, No significant change was found Confirmed by Ar Agudelo ([id number]) on 05/21/2025 6:41:43 AM Referred By: REFERRED SELF Confirmed By: Ar Agudelo
[2025-05-21] MEDS: ENOXAPARIN INJ 40 MG/0.4 ML SYR SQ SCH (08:20)
[2025-05-21 08:38] LABS: Hematocrit (blood only) 43.6 % (42.0-52.0); Hemoglobin 14.5 g/dl (14.0-18.0); Mean Corpuscular Hemoglobin 28.5 pg (25.0-34.0); Mean Corpuscular Volume 85.8 fL (80.0-100.0); Platelet Count 349 K/uL (130-400); RDW Standard Deviation 40.9 fL (36.4-46.3); Red Blood Count 5.08 M/uL (4.70-6.10); White Blood Count 11.47 K/ul (4.8-10.8)
[2025-05-21 08:55] LABS: Anion Gap 5.0 (3-11); Blood Urea Nitrogen 13.0 mg/dl (6-23); Calcium 9.7 mg/dl (8.6-10.3); Carbon Dioxide 31.0 mmol/L (21-32); Chloride 100.0 mmol/L (98-107); Creatinine Clr Calc Pharmacy 148.1 ml/min; Glucose 190.0 mg/dl (70-99(Fasting)); Potassium 5.0 mmol/L (3.5-5.1); Sodium 136.0 mmol/L (136-145)
--- NOTE | 2025-05-21 17:13 | Hospitalist Progress Note ---
Date of Service May 21, 2025 Assessment & Plan (1) Cellulitis of leg, right: (2) HTN (hypertension): (3) Diabetes: Plan 49yo male with history of DM admitted with right thigh cellulitis #Sepsis (POA) caused by Group B Strep cellulitis and abscess of right leg - sepsis resolved Treated with pip-tazo and improved without MRSA coverage. Changed to cefazolin based on culture and gram stain Underwent I&D of large medial R thigh abscess in OR with Dr. Busch 05/20 Continue dressing changes, add oxycodone premed for these, anticipate home soon - his can help #Diabetes - Last [id number] on 12/16/24 -Lantus 12u BID and as needed short acting insulin - continue. BG at goal today - continue same doses -Hold Metformin and Ozempic #Hypertension -Continue Valsartan 80mg po daily -Monitor, well controlled #Hyperlipidemia - chronic. stable -Continue Crestor 20mg po daily DVT ppx - enoxaparin Admission and Anticipated Discharge Date Admission Date: May 20, 2025 Subjective R thigh is painful but mainly with the dressing change Thigh swelling substantially resolved In general feeling better Physical Exam Physical Exam: Last 24h vitals reviewed GEN: lying in bed awake HEENT: pupils equal, sclerae anicteric, moist MM RESP: normal WOB CV: ABD: nondistended : no juárez SKIN: R medial thigh with surgical wound packed, edges without significant pippa thema, surrounding cellulitis resolved, swelling resolved NEURO: AOx person, place, and situation. Face symmetric, speech normal, moves 4 ext spontaneously and equally Results & Data Results & Data Vital Signs (Past 12 Hours) Vital Signs Temp Pulse Resp BP Pulse Ox O2 Del Method 05/21/25 07:38 36.5 C 71 18 126/69 95 Room Air PG Care Time/CCT Total # of Minutes Spent Total Time Spent with Patient: Total time spent is greater than 50% in coordination of care (as documented) at patient's floor/unit and/or counseling patient: Coding Level of Care Code 94916 SUB INP/OBS CARE 2/35MIN Diagnoses Cellulitis of leg, right L03.115 Hypertension, unspecified type I10 Hypertension type: unspecified Type 2 diabetes mellitus without complication, without long-term current use of insulin E11.9 (2) HTN (hypertension) Hypertension type: unspecified Qualified Code(s): I10 - Essential (primary) hypertension
--- NOTE | 2025-05-22 03:48 | Surgery Progress Note ---
Date of Service May 22, 2025 Assessment & Plan (1) Abscess of right thigh: Plan: Patient is status post incision and drainage of right thigh abscess on 05/20/2025 (postop day #2) Continue analgesics as needed Operative cultures are reviewed and thus far growing group B strep with sensitivities to follow Continue antibiotics in the form of Ancef, tailor antibiotics based on sensitivity results of cultures Nursing to continue daily dressing changes; wound care nurse has been consulted with recommendations pending Lovenox is in place for DVT prevention Admission and Anticipated Discharge Date Admission Date: May 20, 2025 Subjective Patient is resting comfortably in bed. He denies any fevers, shakes, or chills. He notes he has no issues with pain control Wound dressing was changed on 05/21/2025 by nursing staff. Physical Exam Physical Exam: Dressing to right thigh is noted to be clean, dry, and intact. Results & Data Vital Signs (Past 12 Hours) Vital Signs Temp Pulse Resp BP Pulse Ox O2 Del Method 05/21/25 20:13 36.6 C 73 16 113/78 95 Room Air 05/21/25 17:19 37.1 C 73 18 109/68 98 Room Air PG Care Time/CCT Total # of Minutes Spent Total Time Spent with Patient: Total time spent is greater than 50% in coordination of care (as documented) at patient's floor/unit and/or counseling patient: Coding Level of Care Code None Diagnoses Abscess of right thigh L02.415
--- NOTE | 2025-05-22 19:42 | Hospitalist Progress Note ---
Date of Service May 22, 2025 Assessment & Plan (1) Cellulitis of leg, right: (2) HTN (hypertension): (3) Diabetes: Plan 49yo male with history of DM admitted with right thigh cellulitis #Sepsis (POA) caused by Group B Strep cellulitis and abscess of right leg - sepsis resolved Continue IV cefazolin Underwent I&D of large medial R thigh abscess in OR with Dr. Busch 05/20 Continue dressing changes, add oxycodone premed for these Continues to have a singificantly indurated area proximal to the incision that extends up to the groin, no fluctuance - risk of abscess development/extension - warrants ongoing IV antibiotics at this time WON consulted by surgery - can help with dressing changes at home if trained #Diabetes - Last NowH3F=6.7 on 12/16/24 -Lantus 12u BID and as needed short acting insulin - continue. BG remains at goal -Hold Metformin and Ozempic #Hypertension -Continue Valsartan 80mg po daily -Monitor, well controlled #Hyperlipidemia - chronic. stable -Continue Crestor 20mg po daily DVT ppx - enoxaparin Admission and Anticipated Discharge Date Admission Date: May 20, 2025 Subjective Dressing change was less painful today after 10 mg oxycodone premed Pain when up and around has improved a lot Physical Exam Physical Exam: Last 24h vitals reviewed GEN: lying in bed awake HEENT: pupils equal, sclerae anicteric, moist MM RESP: normal WOB CV: ABD: nondistended : no juárez SKIN: R medial thigh deep surgical wound apx 7 cm is clean and healthy appearing, proximal to this there continues to be a significantly indurated and tender area with mild erythema that extends up to the groin. R groin LAD is present. NEURO: AOx person, place, and situation. Face symmetric, speech normal, moves 4 ext spontaneously and equally Results & Data Results & Data Vital Signs (Past 12 Hours) Vital Signs Temp Pulse Resp BP Pulse Ox O2 Del Method 05/22/25 15:55 36.7 C 58 L 18 119/78 96 Room Air 05/22/25 10:02 36.7 C 56 L 18 137/86 94 Room Air PG Care Time/CCT Total # of Minutes Spent Total Time Spent with Patient: Total time spent is greater than 50% in coordination of care (as documented) at patient's floor/unit and/or counseling patient: Coding Level of Care Code 14062 SUB INP/OBS CARE MIN Diagnoses Cellulitis of leg, right L03.115 Hypertension, unspecified type I10 Hypertension type: unspecified Type 2 diabetes mellitus without complication, without long-term current use of insulin E11.9 (2) HTN (hypertension) Hypertension type: unspecified Qualified Code(s): I10 - Essential (primary) hypertension
[2025-05-23 11:42] VITALS: RESP 18
--- NOTE | 2025-05-23 19:52 | Hospitalist Progress Note ---
Date of Service May 23, 2025 Assessment & Plan (1) Cellulitis of leg, right: (2) HTN (hypertension): (3) Diabetes: Plan 49yo male with history of DM admitted with right thigh cellulitis #Sepsis (POA) caused by Group B Strep cellulitis and abscess of right leg - sepsis resolved Continue IV cefazolin Underwent I&D of large medial R thigh abscess in OR with Dr. Busch 05/20 Continue dressing changes, oxycodone premed for these indurated area proximal to the incision improved - risk of abscess development/extension - warrants ongoing IV antibiotics at this time. May be suitable for po tomorrow KELSIE consulted by surgery - elizabeth franco, reviewed recs, might benefit from vac #Diabetes - Last VepF6X=1.7 on 12/16/24 -Lantus 12u BID and as needed short acting insulin - continue. BG remains at goal rev 05/23 -Hold Metformin and Ozempic #Hypertension -Continue Valsartan 80mg po daily -Monitor, well controlled #Hyperlipidemia - chronic. stable -Continue Crestor 20mg po daily DVT ppx - enoxaparin Admission and Anticipated Discharge Date Admission Date: May 20, 2025 Subjective R thigh pain improved, hair sticks to dressings which has been a problem tolerating dressing changes with oxycodone 10 mg premed Physical Exam Physical Exam: Last 24h vitals reviewed GEN: lying in bed awake HEENT: pupils equal, sclerae anicteric, moist MM RESP: normal WOB CV: ABD: nondistended : no juárez SKIN: R medial thigh deep surgical wound apx 7 cm is clean and healthy appearing on photo by KELSIE, proximal to this there continues to be an indurated and tender area but much smaller today and erythema improved. R groin LAD is present. NEURO: AOx person, place, and situation. Face symmetric, speech normal, moves 4 ext spontaneously and equally Results & Data Results & Data Vital Signs (Past 12 Hours) Vital Signs Temp Pulse Resp BP Pulse Ox O2 Del Method 05/23/25 11:40 36.4 C L 67 18 127/84 98 Room Air PG Care Time/CCT Total # of Minutes Spent Total Time Spent with Patient: Total time spent is greater than 50% in coordination of care (as documented) at patient's floor/unit and/or counseling patient: Coding Level of Care Code 73990 SUB INP/OBS CARE 2/35MIN Diagnoses Cellulitis of leg, right L03.115 Hypertension, unspecified type I10 Hypertension type: unspecified Type 2 diabetes mellitus without complication, without long-term current use of insulin E11.9 (2) HTN (hypertension) Hypertension type: unspecified Qualified Code(s): I10 - Essential (primary) hypertension
[2025-05-23 21:19] VITALS: TEMP 98.1; O2SAT 95
[2025-05-24 07:41] VITALS: BP 113/70; PULSE 62
--- NOTE | 2025-05-24 19:53 | Discharge Summary ---
Discharge Summary Date of Service May 24, 2025 Principal Dx & Hospital Course #1 = Principal Diagnosis (1) Cellulitis of leg, right: (2) HTN (hypertension): (3) Diabetes: Plan 49yo male with history of DM admitted with right thigh cellulitis #Sepsis (POA) caused by Group B Strep cellulitis and abscess of right leg - sepsis resolved Source was R groin folliculitis treated mainly with pip-tazo then IV cefazolin Underwent I&D of large medial R thigh abscess in OR with Dr. Busch 05/20 After that required several more days IV antibiotics to resolve phlegmonous are proximal to I&D site Blood cultures finalized negative Continue dressing changes, oxycodone premed for these, complete course of oral cefadroxil - 10 days ordered but may stop at 7 days if resolved Surgery clinic follow up scheduled in 2 days WON consulted by surgery - discussed with Alena Mariee RN - might benefit from vac, she scheduled wound clinic appt for 6 days later vac can be arranged by clinic. #Diabetes - Last ByeZ4Y=3.7 on 12/16/24 -continue insulin Metformin and Ozempic, follow up in primary care. BG was well controlled in hospital, hesitate to make changes based on inpatient insulin needs, with resolving infection #Hypertension -Continue Valsartan 80mg po daily -Monitor, well controlled #Hyperlipidemia - chronic. stable -Continue Crestor 20mg po daily Notes For Next Care Provider wound clinic follow up scheduled Medication Changes From Visit cefadroxil x 7-10 days Admission HPI Per Admitting Provider Rakesh Stovall is a pleasant 49yo male with history of Diabetes, HLP, GERD presenting with right thigh cellulitis. Approximately 1.5 - 2 weeks ago patient had a pimple on his right inner thigh. He tried to pop it and since has had progression of redness, warmth, tenderness of the right thigh. He has developed fever and chills as well as generalized weakness, fatigue, nausea, vomiting and oral intake. He reports his blood sugar being mildly elevated over the last 2 weeks. No additional complaints at this time. In the ER he is afebrile, HD stable ER Course: Zosyn NSS Discharge Exam Last 24h vitals reviewed GEN: lying in bed awake HEENT: pupils equal, sclerae anicteric, moist MM RESP: normal WOB CV: ABD: nondistended : no juárez SKIN: R medial thigh deep surgical wound apx 7 cm and fairly deep is clean and healthy appearing on photo by WON, proximal to this indurated and tender area significantly improved/resolving. R groin LAD is present. NEURO: AOx person, place, and situation. Face symmetric, speech normal, moves 4 ext spontaneously and equally Discharge Plan Discharge Items Patient Disposition: Home - Home Health Services Reason For Visit: RLE CELLULITIS, POSSIBLE EARLY ABSCESS Discharge Diagnosis: Right thigh abscess and cellulitis caused by group B strep Condition on Discharge: Good Activity: Per Instructions section Non-emergency contact: Primary Care Provider and Surgeon Call non-emergency contact if: your pain is not controlled, your temperature is above 101.5, your wound has increased redness and your wound has increased drainage Follow-up/Referrals: Lily Tran CRNP [Primary Care Provider] - 05/27/25 11:00 am (with Eyer.) Gato Busch DO [Physician] - 05/27/25 (Please follow up in our clinic in 1 week for wound check) Diet: Carb Consistent or DM2 Addtl Attending Provider Instructions: You were treated for thigh cellulitis and abscess caused by Group B Strep bacteria - that is a common skin bacteria Antibiotic (cefadroxil) for 10 days. OK to stop after 7 days if thigh redness/swelling completely resolved You may want to take a probiotic for 2-4 weeks Continue dressing changes, wound clinic will call to schedule follow up. Based on progress they may place you on a wound vac 10 mg (2 tabs) of oxycodone and 650 mg of tylenol, 45 minutes prior to dressing has been effective in the hospital Call your doctor if redness, pain, swelling increasing, foul/purulent drainage from wound, fevers It was a pleasure taking care of you in the hospital Audrey Foley MD SPECIAL CARE INSTRUCTIONS: * Dressings per wound care * You may shower. NO soaking in bath tubs, hot tubs, beaches, or pools for 2 weeks * No driving while taking narcotic pain medication * No drinking alcohol while taking narcotic pain medication * May use Ibuprofen/Tylenol over the counter for pain as tolerated. Do not exceed 3grams of Tylenol per 24 hours * Expect some swelling and bruising. * Diet - resume your regular diet CALL YOUR DOCTOR IF: * Temperature above 101 degrees, nausea/vomiting, fever/chills * Pain not relieved by pain medicine ordered * There is increased drainage or redness from any incision * You have any unanswered questions or concerns [phone]. FOLLOW UP VISIT: If not already scheduled, please call the office for a follow-up visit. Office Addtl Annual Giving Manager Provider Instructions: DIABETES RECOMMENDATIONS: 1.) Aim to maintain blood sugar levels below 180 (ideally below 130 before meals) to support healing and continued recovery. 2.) If blood sugar levels remain elevated following discharge, work with your outpatient provider on insulin dose adjustments. - If blood sugar levels are fairly stable but elevated fasting and thru the day, you likely need an increase in your Semglee dose. - Per review of your prior Tim reports, your blood sugar levels were highest from 9pm-6am suggesting possible need for an increase in your Novolog dose with your evening meal vs. need for a little Novolog with evening snacking. 3.) To help extend the wear time of your FreeStyle Tim sensor, recommend trying: - Vet wrap- you can get this from [employer] or [employer] or online - Arm band- you can get different arm bands online thru [employer] or [employer] Pending Studies at Discharge: No Stand-Alone Forms: [facility], Smoking Cessation Medications and DC Order Prescriptions: New oxycodone 5 mg Tablet 5 - 10 mg PO Q4H PRN (Reason: pain) Qty: 20 0RF acetaminophen 325 mg Tablet 650 mg PO Q6H Qty: 60 0RF Rx Instructions: take scheduled for pain until pain improved cefadroxil 1 gram tablet 1,000 mg PO BID 10 Days Qty: 20 0RF Rx Instructions: ok to stop after 7 days if skin swelling/redness resolved Continued metformin 500 mg tablet extended release 24 hr 1,000 mg PO BIDM Qty: 360 3RF rosuvastatin 20 mg tablet 20 mg PO DAILY Qty: 90 3RF insulin glargine-yfgn [Semglee(insulin glarg-yfgn)Pen] 100 unit/mL (3 mL) insulin pen 42 unit subcut DAILY Qty: 15 5RF insulin aspart U-100 [Novolog FlexPen U-100 Insulin] 100 unit/mL (3 mL) insulin pen See Rx Instructions subcut .TID with meals Qty: 15 5RF Rx Instructions: Inject up to 15 units subcutaneously before main meals (inject 15 min before eating) (DME) pen needle, diabetic [Comfort EZ Pen [place]] 32 gauge x 5/32" needle See Rx Instructions .Route Qty: 200 5RF Rx Instructions: use with semglee & novolog pens 4 times daily. (DME) FreeStyle Tim 3 [place] Misc See Rx Instructions .Route Qty: 1 0RF Rx Instructions: Use as directed to monitor glucose levels (DME) OneTouch Verio test strips Strip See Rx Instructions .Route Qty: 100 5RF Rx Instructions: check blood sugars 4 times daily (before meals & at bedtime) valsartan 80 mg tablet 80 mg PO DAILY Qty: 90 3RF (DME) FreeStyle Tim 3 Sensor Device See Rx Instructions .Route Qty: 2 5RF Rx Instructions: Change every 14 days to monitor glucose levels (DME) Ketostix Strip See Rx Instructions miscellaneous .MEDSUPPLY Qty: 25 2RF Rx Instructions: Use if BG >250 for 4 hours naproxen sodium [Aleve] 220 mg Tablet 440 mg PO DIRECTED PRN (Reason: Pain) Hold Instructions: hold unless your outpatient doctors say it is ok to resume (DME) lancets [OneTouch Delica Plus Lancet] 33 gauge misc See Rx Instructions .Route Qty: 100 2RF Rx Instructions: Check blood sugars 4 times daily. Ozempic 0.25 mg or 0.5 mg (2 mg/3 mL) pen injector 0.5 mg subcut WK Rx Instructions: SUNDAYS Discharge Orders: Discharge Order (Routine); Ordered 05/24/25 Ordered By: Audrey Dickson/Other Patient Handouts: Nutrition for Wound Healing, Wound Care Admission Data Admit Date/Time: 05/20/25 08:47 Attending Provider: Audrey Foley Admit Provider: Emily Rincon Primary Care Provider: Lily Tran Other Providers: Emily Rincon; Gato Busch; [place],Home [facility] Other Interventions: Discharge Summary Assessment (RN) Last Done: 05/24/25 13:27 Hospital Stay Data Consultations 05/17/25 19:52 ED Decision to Admit Stat 05/19/25 16:23 Consult General Surgery Routine Procedures Performed Operation Date: 05/20/25 07:00 Actual Procedures p Incision and Drainage Right Thigh Abscess(Right) - Gato Busch, DO Diagnostic Imagining Performed 05/17/25 17:50 CT femur RT w con Stat 05/19/25 12:21 US soft tissue ext ltd Urgent Pending Results Patient Have Any Pending Studies at Discharge: No Discharge Instructions Given to Patient (Per Discharging Provider) You were treated for thigh cellulitis and abscess caused by Group B Strep bacteria - that is a common skin bacteria Antibiotic (cefadroxil) for 10 days. OK to stop after 7 days if thigh redness/swelling completely resolved You may want to take a probiotic for 2-4 weeks Continue dressing changes, wound clinic will call to schedule follow up. Based on progress they may place you on a wound vac 10 mg (2 tabs) of oxycodone and 650 mg of tylenol, 45 minutes prior to dressing has been effective in the hospital Call your doctor if redness, pain, swelling increasing, foul/purulent drainage from wound, fevers It was a pleasure taking care of you in the hospital Audrey Foley MD SPECIAL CARE INSTRUCTIONS: * Dressings per wound care * You may shower. NO soaking in bath tubs, hot tubs, beaches, or pools for 2 weeks * No driving while taking narcotic pain medication * No drinking alcohol while taking narcotic pain medication * May use Ibuprofen/Tylenol over the counter for pain as tolerated. Do not exceed 3grams of Tylenol per 24 hours * Expect some swelling and bruising. * Diet - resume your regular diet CALL YOUR DOCTOR IF: * Temperature above 101 degrees, nausea/vomiting, fever/chills * Pain not relieved by pain medicine ordered * There is increased drainage or redness from any incision * You have any unanswered questions or concerns [phone]. FOLLOW UP VISIT: If not already scheduled, please call the office for a follow-up visit. Office Total Time Total Time Spent Total Time Spent (In Minutes): I personally spent: [35] minutes today on clinical care activities including: reviewing chart notes and vital signs [x] reviewing labs [x] discussion with makeup sales consultant(s) - WON nurse [x] discussion with special needs caregiver examining and counseling the patient [x] writing prescriptions, discharge instructions documentation Coding Level of Care Code 31297 INP/OBS DISCH >30 MIN Diagnoses Cellulitis of leg, right L03.115 Hypertension, unspecified type I10 Hypertension type: unspecified Type 2 diabetes mellitus without complication, without long-term current use of insulin E11.9
== END 2025-05-24 16:28 | disposition home health service (06) | DRG 872 ==
LOC: 3W 16:52 → ED 16:52 → SUATTDRO 20:06 → 3W 20:53
DX: Z79.4 Long term (current) use of insulin; L02.415 Cutaneous abscess of right lower limb; Z79.85 Long-term (current) use of injectable non-insulin antidiabetic drugs; Z81.2 Family history of tobacco abuse and dependence; E66.01 Morbid (severe) obesity due to excess calories; K21.9 Gastro-esophageal reflux disease without esophagitis; E11.65 Type 2 diabetes mellitus with hyperglycemia; I10 Essential (primary) hypertension; Z68.43 Body mass index [BMI] 50.0-59.9, adult; L03.115 Cellulitis of right lower limb; A40.1 Sepsis due to streptococcus, group B; E78.5 Hyperlipidemia, unspecified; Z87.891 Personal history of nicotine dependence; E86.0 Dehydration